=== PATIENT | female | born 1995 | race Caucasian/White ===

== ENCOUNTER 2025-04-04 13:26 | Outpatient (OUT) | payer MEDICAID, SELFPAY ==
[2025-04-04 14:18] LABS: Basophils Percent Auto 0.4 % (0.2-2.0); Eosinophils Absolute Auto 0.1 10^3/uL (0.0-0.7); Eosinophils Percent Auto 2.5 % (0.9-7.0); Hematocrit 34.2 % (36.0-48.0); Hemoglobin 11.1 g/dL (12.0-16.0); Immature Granulocytes Abs Auto 0.03 10^3/uL (0.00-0.03); Immature Granulocytes Pct Auto 0.6 % (0.0-0.5); Lymphocytes Absolute Auto 1.5 10^3/uL (1.2-3.8); Lymphocytes Percent Auto 27.6 % (20.5-60.0); Mean Corpuscular HGB Conc 32.5 g/dL (29.9-35.2); Mean Corpuscular Hemoglobin 27.6 pg (26.7-34.0); Mean Corpuscular Volume 85.1 fL (81.0-99.0); Mean Platelet Volume 11.1 fL (9.5-13.5); Monocytes Absolute Auto 0.3 10^3/uL (0.3-0.8); Monocytes Percent Auto 5.9 % (1.7-12.0); Neutrophils Absolute Auto 3.3 10^3/uL (1.4-6.5); Platelet Count 186 10^3/uL (150-450); Red Blood Count 4.02 10^6/uL (4.20-5.40); Red Cell Distribution Width 15.5 % (11.0-15.0); White Blood Count 5.3 10^3/uL (4.0-11.0)
[2025-04-04 14:33] LABS: Estimated Average Glucose 105 mg/dL; Glycohemoglobin A1C 5.3 % (4.5-6.2)
[2025-04-04 15:00] LABS: Amphetamine Screen Urine NEGATIVE (NEGATIVE); Barbiturates Screen Urine NEGATIVE (NEGATIVE); Benzodiazepines Screen Urine NEGATIVE (NEGATIVE); Buprenorphine Screen Urine NEGATIVE (NEGATIVE); Cannabinoid Screen Urine NEGATIVE (NEGATIVE); Cocaine Screen Urine NEGATIVE (NEGATIVE); Methadone Screen Urine NEGATIVE (NEGATIVE); Methamphetamines Screen Urine NEGATIVE (NEGATIVE); Opiate Screen Urine NEGATIVE (NEGATIVE); Oxycodone Screen Urine NEGATIVE (NEGATIVE); Phencyclidine Screen Urine NEGATIVE (NEGATIVE); Tricyclic Antidepressant Urine NEGATIVE (NEGATIVE)
[2025-04-05 05:07] LABS: HIV Ab/p24 Ag Screen Non Reactive (Non Reactive)
[2025-04-05 06:07] LABS: HBsAg Screen Negative (Negative); HCV Ab Non Reactive (Non Reactive)
[2025-04-05 08:09] LABS: Rubella Antibodies, IgG <0.90 index (Immune >0.99)
[2025-04-05 12:10] LABS: Rapid Plasma Reagin, Quant Non Reactive titer (NonRea<1:1)
== END 2025-04-04 13:27 | disposition home or self-care (01) ==
LOC: LAB 13:34
PROVIDERS: PCP Nurse Practitioner Family; Visit Provider Obstetrics & Gynecology
DX: Z34.01 Encounter for supervision of normal first pregnancy, first trimester (principal); N92.6 Irregular menstruation, unspecified
CPT/HCPCS: 36415; 80307; 83036; 85025; 86592; 86762; 86803; 86850; 86900; 86901; 87086; 87340; 87389

== ENCOUNTER 2025-04-11 19:12 | Outpatient (REF) | payer MEDICAID, SELFPAY ==
[2025-04-14 12:09] LABS: Age Gdln ACOG Testing Note (.); IGP, rfx Aptima HPV ASCU Note (.)
== END 2025-04-11 19:13 | disposition home or self-care (01) ==
LOC: LAB 19:12
PROVIDERS: PCP Nurse Practitioner Family; Visit Provider Obstetrics & Gynecology
DX: Z34.92 Encounter for supervision of normal pregnancy, unspecified, second trimester (principal); Z3A.16 16 weeks gestation of pregnancy
CPT/HCPCS: 88175

== ENCOUNTER 2025-05-09 14:46 | Outpatient (OUT) | payer MEDICAID, SELFPAY ==
[2025-05-11 01:07] LABS: AFP Value 85.8 ng/mL (.); Gest. Age on Collection Date 20.3 weeks (.); Gestat. Age Based On Ultrasound (.); Insulin Dep Diabetes No (.); Maternal Age At EDD 29.2 yr (.); OSBR Risk 1 IN 6110 (.); Results Report (.)
== END 2025-05-09 14:47 | disposition home or self-care (01) ==
LOC: LAB 14:48
PROVIDERS: PCP Nurse Practitioner Family; Visit Provider Obstetrics & Gynecology
DX: Z34.92 Encounter for supervision of normal pregnancy, unspecified, second trimester (principal); Z3A.16 16 weeks gestation of pregnancy
CPT/HCPCS: 36415; 82105

== ENCOUNTER 2025-05-19 15:17 | Observation (INO) | payer MEDICAID, SELFPAY ==
[2025-05-19 15:42] VITALS: BP 101/58; PULSE 75
[2025-05-19 16:12] LABS: Amnisure NEGATIVE (NEGATIVE); Internal Control Within Normal Limits
--- NOTE | 2025-05-19 16:23 | PC.NURSE ---
1517- Pt arrives to [facility] at this time with support person. Pt complaining of possible SROM prior to arriving to [facility]. Pt states she felt fluid trickle down her legs and examined the fluid. Pt states fluid smelled like hospital and was clear in consistency. Pt denies urine odor or color. Pt history reviewed at this time. Pt voices having placenta acreta and resolves placenta previa. Pt scheduled to see MFM. Pt had recent intercourse within the last 2 days. Pt denies UTI s/s. Pt reports movement. Pt denies cxt's but states she has cramping here and there. Pt denies vaginal bleeding. Pt given gown and urine specimen cup for sample. Urine obtained; clear, pale yellow. 1544- Amnisure obtained at this time. NO cervical exam performed. FHR tones via doppler 140-150bpm with active movement noted. Pt given PO fluids at this time. n
[2025-05-19 16:50] LABS: Bilirubin Urine NEGATIVE (NEGATIVE); Blood Urine NEGATIVE (NEGATIVE); Clarity Urine CLEAR (CLEAR); Color Urine LT. YELLOW (YELLOW); Glucose Urine UA NEGATIVE (NEGATIVE); Ketones Urine NEGATIVE (NEGATIVE); Leukocyte Esterase Urine MODERATE (NEGATIVE); Nitrite Urine NEGATIVE (NEGATIVE); Protein Urine NEGATIVE (NEG/TRACE); Specific Gravity Urine 1.015 (1.005-1.025); Urobilinogen Urine 0.2 EU/dL (0.2-1.0); pH Urine 7.5 (5.0-9.0)
[2025-05-19 16:55] LABS: Urine Microscopic Indicated YES
[2025-05-19 17:03] LABS: Bacteria Urine SMALL #/HPF (NONE SEEN); Cast Seen? NONE SEEN #/LPF (NONE SEEN); Crystals Seen? None Seen #/HPF (None Seen); Mucus Urine TRACE (NONE SEEN); RBC Urine 0-2 #/HPF (0-2); Squamous Epithelial Cell Urine FEW #/LPF (NONE/RARE)
[2025-05-19 17:04] LABS: Urine Culture Indicated YES-LC
--- NOTE | 2025-05-19 17:40 | PC.NURSE ---
1710- No fluid noted on pt pad. Allergies verified. Pharmacy verified. FHR doppler 140-150 bpm with active movement. 1730- Pt updated on plan of care. Discharge instructions at this time. Pt verbalizes understanding and comfortable going home. No fluid noted.
== END 2025-05-19 17:35 | disposition home or self-care (01) ==
LOC: FBC 15:19
PROVIDERS: Admitting Provider Family Medicine Addiction Medicine; PCP Nurse Practitioner Family; Visit Provider Family Medicine Addiction Medicine
DX: Z03.71 Encounter for suspected problem with amniotic cavity and membrane ruled out (principal)
CPT/HCPCS: 59025; 81001; 84112; 87086; G0378; G0379

== ENCOUNTER 2025-08-03 11:30 | Outpatient (RCR) | payer MEDICAID, SELFPAY ==
--- OUTSIDE RECORDS SUMMARY | 2025-02-01 05:30 | XMS_ITS ---
Author Organization [facility] vices Address [address] [place] [phone] Care Team Providers Care Truck Caterer Name Role Phone Douglas Elizabeth Primary Care Provider Bev Cantu Unavailable [phone] Luke Rod Unavailable [phone] REASON FOR VISIT Periodic Exam Social History Sex Assigned At : Social History Observation Description Sex Assigned At Female Encounters Encounter Location Date Provider Diagnosis Dental Main [address] [place], [place] [phone] 02/01/2025 Luke Rod Plan Of Treatment No Information Progress Notes * Kathie PHAM SDOB:1994 (30 yo F)Acc No.[id number]:02/01/2025 Patient: Kathie ZAMORA Provider: Rach Rod DDS :1995 A ge:29 Y S ex:Female Date:02/01/2025 Address:[address] [place] [address], [address] [facility]-[id number] Pcp:Douglas Elizabeth Subjective: * Chief Complaints: * 1 . Periodic Exam. * Medical History: Objective: * Vitals: Assessment: Plan: * Treatment: * Billing Information: * Visit Code: * Procedure Codes: * Electronic signature of Jacques Rod DDS on 08/03/2025 at 11:33 AM EDT Sign off status: Pending * Provider: Rach Rod DDS Date: 0 02/01/2025 Generated for Sherien graham/Kayla/eTransmitting on: 0 08/03/2025 11:33 AM EDT
--- OUTSIDE RECORDS SUMMARY | 2025-07-20 10:20 | XMS_ITS | Encounter Summary ---
Author Organization [facility] Address [address] [place] [address] Care Team Providers Care Cdl A Driver Name Role Phone Eleanor Andres MD Unavailable Reason for Visit * Reason Comments Routine Visit Encounter Details Date Type Department Care Team (Latest Contact Info) Description 07/20/2025 10:20 AM EDT Routine [facility] [place] [facility] [address] [place] [address] Peter Tellez DO [address] [place], [facility]11 Size of fetus inconsistent with dates in first trimester ([facility]HS-HCC) (Primary Dx); Third trimester ([facility]HS-HCC); 30 weeks gestation of ([facility]HS-HCC); Low platelet count Social History Tobacco Use Types Packs/Day Years Used Date Smoking Tobacco: Never Assessed Estimated Date of Delivery Comme nts Yes 09/24/2025 Based on Ultraso und Sex and Gender Information Value Date Recorded Sex Assigned at Not on file Legal Sex Female 11:40 AM EDT Gender Identity Not on file Sexual Orientation Not on file documented as of this encounter Last Filed Vital Signs Vital Sign Reading Time Taken Comments Blood Pressure 110/76 07/20/2025 10:52 AM EDT Pulse - - Temperature - - Respiratory Rate - - Oxygen Saturation - - Inhaled Oxygen Concentration - - Weight 62.4 kg (137 lb 8 oz) 07/20/2025 10:52 AM EDT Height - - Body Mass Index - - documented in this encounter Progress Notes * Obdulia Rivas LPN - 07/20/2025 10:20 AM EDT Reason for Appointment: Patient ID: Kathie Valentin is a 30 y.o. female who presents for Routine Visit Patient presents today for Return OB appointment. MEDICATIONS Current Outpatient Medications Medication Instructions acetaminophen (TYLENOL) 1,000 mg, Every 6 hours PRN Ferrous Sulfate (IRON PO) 1 tablet, Daily RT ondansetron ODT (ZOFRAN-ODT) 4 mg, Every 8 hours PRN 28-0.8 MG tablet 1 tablet, Every morning ALLERGIES Allergies Allergen Reactions Amoxicillin Itching 05/11/2024: tolerated ceftriaxone without allergic reaction PROBLEMS Active Ambulatory Problems Diagnosis Date Noted ([facility]) 07/04/2025 Third trimester ([facility]) 07/04/2025 Resolved Ambulatory Problems Diagnosis Date Noted No Resolved Ambulatory Problems Past Medical History: Diagnosis Date Miscarriage ([facility]) 01/2023 Pre-eclampsia in period ([facility]) 10/11/2022 Sepsis ([facility]) 05/09/2024 HISTORY PAST MEDICAL HISTORY SOCIAL HISTORY Past Medical History: Diagnosis Date Miscarriage ([facility]) 01/2023 @ 9 weels Pre-eclampsia in period ([facility]) 10/11/2022 Sepsis ([facility]) 05/09/2024 sepsis after deliverying 2 days later due to strep A Social History Tobacco Use Smoking status: Not on file Smokeless tobacco: Not on file Substance Use Topics Alcohol use: Not on file Drug use: Not on file FAMILY HISTORY No family history on file. SURGICAL HISTORY No past surgical history on file. REVIEW OF SYSTEMS Review of Systems: Review of Systems Constitutional: Negative. HENT: Negative. Eyes: Negative. Respiratory: Negative. Cardiovascular: Negative. Gastrointestinal: Negative. Genitourinary: Negative. Musculoskeletal: Negative. Skin: Negative. Neurological: Negative. All other systems reviewed and are negative. Hematological: Negative. Endocrine: Negative. Allergic/Immunologic: Negative. OBJECTIVE Objective: Physical Exam Constitutional: Appearance: Normal appearance. She is well-developed. Cardiovascular: Rate and Rhythm: Normal rate and regular rhythm. Pulmonary: Effort: Pulmonary effort is normal. Breath sounds: Normal breath sounds. Abdominal: General: Bowel sounds are normal. There is no distension. Palpations: Abdomen is soft. Tenderness: There is no abdominal tenderness. There is no guarding or rebound. Musculoskeletal: General: No swelling. Normal range of motion. Right lower leg: No edema. Left lower leg: No edema. Neurological: Mental Status: She is alert and oriented to person, place, and time. Skin: General: Skin is warm and dry. Psychiatric: Mood and Affect: Mood normal. Behavior: Behavior normal. Vitals and nursing note reviewed. Exam conducted with a flatbed driver present. Vitals: There is no height or weight on file to calculate BMI. BP: 110/76 Patient's last menstrual period was 01/01/2025. ASSESSMENT & PLAN ICD-10-CM 1. Size of fetus inconsistent with dates in first trimester ([facility]) O26.841 US OB follow up transabdominal approach 2. Third trimester ([facility]) Z34.93 POCT urinalysis dipstick manually resulted 3. 30 weeks gestation of ([facility]) Z3A.30 4. Low platelet count D69.6 CBC and differential Patient presents today for a routine obstetrics appointment. Patient is currently 30w4d with a Estimated Date of Delivery: 09/24/25. Patient given CBC order to have obtained sometime prior tonext appointment. Patient given growth scan to have scheduled due to size inconsistent with dates. Patient to return to clinic in 2 weeks for routine OB care. Documented by Obdulia Rivas LPN on behalf of: Peter Tellez DO documented in this encounter Plan of Treatment Upcoming Encounters Date Type Department Care Team (Late st Contact Info) Description 08/16/2025 2:10 PM EDT Routine [facility] [address] [facility] [place] [place] [address] Peter Tellez DO [address] [place] [address] 08/31/2025 9:30 AM EDT Routine [facility] LUCIANO [address] [facility] [place] [place] [address] Brenda Traore, CONCRETE TILE MACHINE OPERATOR [address] [place] [address] 09/07/2025 9:50 AM EDT Routine [facility] [address] [place] [address] [place] [phone] Peter Tellez DO [address] [place], [place] [id number] 09/14/2025 10:30 AM EDT Routine [facility] [address] [place] [address] [place] [phone] Angela Horton, PA [address] [place], [place] [phone] 09/21/2025 9:30 AM EDT Routine [facility] [address] [place] [address] [place] [address] Angela Horton, PA [address] [place], [place] [id number] Scheduled Orders Name Type Priority Associated Diagnoses Orde r Schedule US OB follow up transabdominal approach Imaging Routine Size of fetus inconsistent with dates in first trimester ([facility]) Expected: 07/20/2025, Expires: 11/19/2025 CBC and differential Lab Routine Low platelet count 4 Occurrences starting 07/20/2025 until 07/20/2026 documented as of this encounter Procedures Procedure Name Priority Date/Time Associated Diagnosis Comments POCT URINALYSIS DIPSTICK Routine 07/20/2025 10:57 AM EDT Third trimester ([facility]) documented in this encounter Results * (ABNORMAL) POCT urinalysis dipstick manually resulted (07/20/2025 10:57 AM EDT) Color, UA Yellow Clarity, UA Clear Glucose, UA Negative Negative - 2000(110) ++++ mg/dL Bilirubin, UA Negative Negative - 4(70) +++ mg/dL Ketones, UA Negative Negative - 160(16) ++++ mg/dL Spec Grav, UA 1.020 1 - 1.03 Blood, UA Negative Negative - 50 Roland/mcL pH, UA 6.5 5 - 9 Protein, UA Trace Negative - 2000(20) ++++ mg/dL Urobilinogen, UA 0.2 0.2 - 12 mg/dL Leukocytes, UA Positive Negative - 500+++ Ethan/mcL Comment:3+ Nitrite, UA Negative Negative - Positive Urine 07/20/2025 10:5 7 AM EDT Peter Tellez DO POINT OF CARE TEST ENTER/EDIT OR DERABLES Final Result documented in this encounter Visit Diagnoses Diagnosis Size of fetus inconsistent with dates in first trimester ([facility]CC)- Primary Third trimester ([facility]-HCC) state, incidental 30 weeks gestation of ([facility]) Low platelet count documented in this encounter Care Teams Cdl A Driver Relationship Specialty Start Date End Date Eleanor Andres MD [address] [place] [address] PCP - [facility] [employer] 02/22/24 documented as of this encounter
--- OUTSIDE RECORDS SUMMARY | 2025-08-03 11:00 | XMS_ITS | Encounter Summary ---
Author Organization [facility] Address [address] [place] [address] Care Team Providers Care Vascular Manager Name Role Phone Eleanor Andres MD Unavailable Reason for Visit * Reason Comments Routine Visit Encounter Details Date Type Department Care Team (Late st Contact Info) Description 08/03/2025 11:00 AM EDT Routine [facility] OBFELICIA [address] [facility] [place] [address] Angela Horton PA [address] [facility] [address] [place], [facility] Third trimester ([facility]); 32 weeks gestation of ([facility]) Social History Tobacco Use Types Packs/Day Years [...] Sign Reading Time Taken Comments Blood Pressure 110/70 08/03/2025 11:05 AM EDT Pulse - - Temperature - - Respiratory Rate - - Oxygen Saturation - - Inhaled Oxygen Concentration - - Weight 62.8 kg (138 lb 8 oz) 08/03/2025 11:05 AM EDT Height - - Body Mass Index - - documented in this encounter Progress Notes * VINCENT Eduardo - 08/03/2025 11:00 AM EDT Reason for Appointment: Patient ID: [...] PROBLEMS Active Ambulatory Problems Diagnosis Date Noted ([facility]) 07/04/2025 Third trimester ([facility]) 07/04/2025 Resolved Ambulatory Problems Diagnosis Date Noted No Resolved Ambulatory Problems Past Medical History: Diagnosis Date Miscarriage ([facility]) 01/2023 Pre-eclampsia in period ([facility]) 10/11/2022 Sepsis ([facility]) 05/09/2024 HISTORY PAST MEDICAL HISTORY SOCIAL HISTORY Past Medical History: Diagnosis Date Miscarriage ([facility]) 01/2023 @ 9 weels Pre-eclampsia in period ([facility]) 10/11/2022 Sepsis ([facility]) 05/09/2024 sepsis after deliverying 2 days later [...] Exam Constitutional: Appearance: Normal appearance. She is normal weight. HENT: Head: Normocephalic. Cardiovascular: Rate and Rhythm: Normal rate. Pulses: Normal pulses. Pulmonary: Effort: Pulmonary effort is normal. Breath sounds: Normal breath sounds. Abdominal: Palpations: Abdomen is soft. Musculoskeletal: General: Normal range of motion. Neurological: General: No focal deficit present. Mental Status: She is alert and oriented to person, place, and time. Psychiatric: Mood and Affect: Mood normal. Behavior: Behavior normal. Thought Content: Thought content normal. Judgment: Judgment normal. Vitals and nursing note reviewed. Vitals: There is no height or weight on file to calculate BMI. BP: 110/70 Patient's last menstrual period was 01/01/2025. ASSESSMENT & PLAN ICD-10-CM 1. Third trimester ([facility]) Z34.93 POCT urinalysis dipstick manually resulted 2. 32 weeks gestation of ([facility]) Z3A.32 Return OB: Patient presents today for a routine obstetrics appointment. Patient is currently 32w4d . Patient states she is doing well but has complaints of being tired due to current . Patient has verbalizes frequent movement. labor precautions was discussed/given and patient was instructed to perform kick counts three times a day. Orders Placed This Encounter Procedures POCT urinalysis dipstick manually resulted Follow Up: Patient is to return to office in 2 week for routine OB appointment. Documented by VINCENT Eduardo on behalf of: VINCENT Eduardo documented in this encounter Plan of Treatment Upcoming Encounters Date Type Department Care Team (Late st Contact Info) Description 08/16/2025 2:10 PM EDT Routine [facility] [address] [place] [address] [place] [phone] Peter Tellez, DO [address] [facility] [place] [address] 08/31/2025 9:30 AM EDT Routine [facility] [address] [place] [address] [place] [phone] Brenda Traore, DOTTIE [address] [facility] [place] [address] 09/07/2025 9:50 AM EDT Routine [facility] [address] [facility] [place] [address] Peter Tellez, DO [address] [facility] [place] [address] 09/14/2025 10:30 AM EDT Routine [facility] [address] [facility] [place] [phone] Angela Horton PA [address] [facility] [place] [address] 09/21/2025 9:30 AM EDT Routine [facility] [address] [facility] [place] [address] Angela Horton PA [address] [facility] [address] [place], [place] [phone] documented as of this encounter Procedures Procedure Name Priority Date/Time Associated Diagnosis Comments POCT URINALYSIS DIPSTICK Routine 08/03/2025 11:11 AM EDT Third trimester ([facility]) documented in this encounter Results * (ABNORMAL) POCT urinalysis dipstick manually resulted (08/03/2025 11:11 AM EDT) Color, UA Yellow Clarity, UA Clear Glucose, UA Negative Negative - 2000(110) ++++ mg/dL Bilirubin, UA Negative Negative - 4(70) +++ mg/dL Ketones, UA Negative Negative - 160(16) ++++ mg/dL Spec Grav, UA 1.015 1 - 1.03 Blood, UA Negative Negative - 50 Roland/mcL pH, UA 7.0 5 - 9 Protein, UA Negative Negative - 2000(20) ++++ mg/dL Urobilinogen, UA 0.2 0.2 - 12 mg/dL Leukocytes, UA Positive Negative - 500+++ Ethan/mcL Comment:2+ Nitrite, UA Negative Negative - Positive Urine 08/03/2025 11:1 1 AM EDT Angela KAUR POINT OF CARE TEST ENTER/EDIT OR DERABLES Final Result documented in this encounter Visit Diagnoses Diagnosis Third trimester ([facility]) state, incidental 32 weeks gestation of ([facility]) documented in this encounter Care Teams Vascular Manager Relationship Specialty Start Date End Date Eleanor Andres MD [address] [phone] PCP - [facility] SORIA 02/22/24 documented as of this encounter
--- OUTSIDE RECORDS SUMMARY | 2025-08-03 11:33 | XMS_ITS | Encounter Summary ---
Author Organization [facility] tem Address [id number] [address] [place] [address] Care Team Providers Care Construction Equipment Operator Name Role Phone No Pcp, No Pcp Primary Care Provider Unavailabl e Encounter Details Date Type Department Care Team (Late st Contact Info) Description 04/16/2022 Orders Only [facility] - [facility] [address] [place] [id number] Lu Guzman, BILLING COLLECTIONS SPECIALIST-[facility] [address], [address] [address] Social History Tobacco Use Types Packs/Day Years Used Date Smoking Tobacco: Never Smokeless Tobacco: Never Alcohol Use Standard Drinks/Week Comments No 0 (1 standard drink = 0.6 oz pur e alcohol) Childcare Answer Date Recorded Childcare Unknown 04/22/2019 Employment Answer Date Recorded Employment Unknown 04/22/2019 Purpose - Life Answer Date Recorded Purpose and direction in life Unknown Comments Yes Sex and Gender Information Value Date Recorded Sex Assigned at Female 10/10/2022 10:30 AM EST Legal Sex Female 11:51 AM EDT Gender Identity Female 10/10/2022 10:30 AM EST Sexual Orientation Straight 10/10/2022 10 :30 AM EST COVID-19 Exposure Response Date Recorded In the last 10 days, have yo u been in contact with someone who was confirmed or suspected to have Coronavirus/COVID-19? No / Unsure 04/15/2022 2:51 PM EDT documented as of this encounter Plan of Treatment Upcoming Encounters Date Type Department Care Team (Late st Contact Info) Description 08/23/2025 1:30 PM EDT Infusion Maria Fernanda [facility] - Medical Oncology [address] [place] [phone] 08/30/2025 1:30 PM EDT Infusion Maria Fernanda Gomez [facility] - Medical Oncology [address] [place] [address], [place] [phone] 09/11/2025 1:30 PM EDT Office Visit Maria Fernanda Gomez [facility] - Medical Oncology [address] [place] [address], [place] [phone] Kaylan Rainey, BILLING COLLECTIONS SPECIALIST-DIESEL INSPECTOR [address] [place] [address], [address] [place] [phone] documented as of this encounter Visit Diagnoses Not on filedocumented in this encounter Additional Health Concerns Infection Onset Date Last Indicated Resolved Time COVID-19 Rule-Out 05/09/2024 05/09/2024 05/09/2024 2:38 AM EDT Enteric Rule-Out 05/09/2024 05/09/2024 05/09/2024 10:46 PM EDT COVID-19 Rule-Out 06/04/2024 06/04/2024 06/04/2024 3:42 PM EDT COVID-19 Rule-Out 07/11/2024 07/11/2024 07/11/2024 8:25 PM EDT documented as of this encounter Care Teams Construction Equipment Operator Relationship Specialty Start Date End Date No [place]cp, [place] [address] PCP - General Family Medicine 02/05/25 documented as of this encounter
--- OUTSIDE RECORDS SUMMARY | 2025-08-03 11:33 | XMS_ITS | Encounter Summary ---
Author Organization [employer] tem Address [id number] [address] [place] [address] Care Team Providers Care Case Operator Name Role Phone No Pcp, No Pcp Primary Care Provider Unavailabl e Encounter Details Date Type Department Care Team (Late Contact Info) Description 09/20/2021 Abstract Maria Fernanda Skylar Gomez [facility] - Medical Oncology [address] [place] [address] Mitul Vila MD [address] [place] [address] [address] [place] [address] Social History Tobacco Use Types Packs/Day Years Used Date Smoking Tobacco: Never Smokeless Tobacco: Never Alcohol Use Standard Drinks/Week Comments No 0 (1 standard drink = 0.6 oz pur e alcohol) Childcare Answer Date Recorded Childcare Unknown 04/22/2019 Employment Answer Date Recorded Employment Unknown 04/22/2019 Purpose - Life Answer Date Recorded Purpose and direction in life Unknown Comments No Sex and Gender Information Value Date Recorded Sex Assigned at Female 10/10/2022 10:30 AM EST Legal Sex Female 11:51 AM EDT Gender Identity Female 10/10/2022 10:30 AM EST Sexual Orientation Straight 10/10/2022 10 :30 AM EST COVID-19 Exposure Response Date Recorded In the last month, have you been in contact with someone who was confirmed or suspected to have Coronavirus / COVID-19? No / Unsure 09/12/2021 10:01 AM EDT documented as of this encounter Plan of Treatment Upcoming Encounters Date Type Department Care Team (Late Contact Info) Description 08/23/2025 1:30 PM EDT Infusion Maria Fernanda Cheng [facility] - Medical Oncology [facility] [place] [address] 08/30/2025 1:30 PM EDT Infusion Maria Fernanda Gomez [facility] - Medical Oncology [facility] [place] [address] 09/11/2025 1:30 PM EDT Office Visit Maria Fernanda Gomez [facility] - Medical Oncology [address] [place] [address], [place] [phone] Kaylan Rainey, DOG BOARDER-[employer] BRINE TE[employer] [address] [facility] [address], [address] [place] [address] documented as of this encounter Visit Diagnoses Not on filedocumented in this encounter Additional Health Concerns Infection Onset Date Last Indicated Resolved Time COVID-19 Rule-Out 05/09/2024 05/09/2024 05/09/2024 2:38 AM EDT Enteric Rule-Out 05/09/2024 05/09/2024 05/09/2024 10:46 PM EDT COVID-19 Rule-Out 06/04/2024 06/04/2024 06/04/2024 3:42 PM EDT COVID-19 Rule-Out 07/11/2024 07/11/2024 07/11/2024 8:25 PM EDT documented as of this encounter Care Teams Case Operator Relationship Specialty Start Date End Date [place], [place] [address] PCP - General Family Medicine 02/05/25 documented as of this encounter
--- OUTSIDE RECORDS SUMMARY | 2025-08-03 11:33 | XMS_ITS | Encounter Summary ---
Author Organization [employer] tem Address [id number] [address] [place] [address] Care Team Providers Care Collar Setter Name Role Phone No Pcp, No Pcp Primary Care Provider Unavailabl e Encounter Details Date Type Department Care Team (Late st Contact Info) Description 09/26/2021 Telephone [facility]ne[facility] [address] [place] [address] Cassidy Serrano MA Social History Tobacco Use Types Packs/Day Years [...] AM EDT documented as of this encounter Miscellaneous Notes * Telephone Encounter - Cassidy Serrano MA - 09/26/2021 3:01 PM EDT Patient called in regards to nexplanon implant in arm. Stated she started getting hives around incision site that were itchy. Patient advised she could take benadryl or trying the cream and to keep appt for tomorrow 09/27/2021. Patient ok's and will try benadryl. documented in this encounter Plan of Treatment Upcoming Encounters Date Type Department Care Team (Late st Contact Info) Description 08/23/2025 1:30 PM EDT Infusion Maria Fernanda Cheng [facility] - Medical Oncology [address] [place] [phone] 08/30/2025 1:30 PM EDT Infusion Maria Fernanda Gomez [facility] - Medical Oncology [address] [place] [phone] 09/11/2025 1:30 PM EDT Office Visit Maria Fernanda Cheng [facility] - Medical Oncology [address] [place] [phone] Kaylan Rainey, CONTINUING EDUCATION INSTRUCTOR-[address], [place] [address] documented as of this encounter Visit Diagnoses Not on filedocumented in this encounter Additional Health Concerns Infection Onset Date Last Indicated Resolved Time COVID-19 Rule-Out 05/09/2024 05/09/2024 05/09/2024 2:38 AM EDT Enteric Rule-Out 05/09/2024 05/09/2024 05/09/2024 10:46 PM EDT COVID-19 Rule-Out 06/04/2024 06/04/2024 06/04/2024 3:42 PM EDT COVID-19 Rule-Out 07/11/2024 07/11/2024 07/11/2024 8:25 PM EDT documented as of this encounter Care Teams Collar Setter Relationship Specialty Start Date End Date No Pcp, [place] [address] PCP - General Family Medicine 02/05/25 documented as of this encounter
--- OUTSIDE RECORDS SUMMARY | 2025-08-03 11:33 | XMS_ITS | Clinical Summary ---
Author Organization [facility] Address [address] [place] [address] Care Team Providers Care Foam Molder Name Role Phone Eleanor Andres MD Unavailable Allergies Active Allergy Reactions Criticality Noted Date Comments Amoxicillin Itching Medium 08/25/2022 05/11/2024: tolerated ceftriaxone without allergic reaction Medications Ferrous Sulfate (IRON PO) Take 1 tablet by mouth in the morning. 5 Active ondansetron ODT (Zofran-ODT) 4 MG disintegrating tablet Take 4 mg by mouth every 8 (eight) hours if needed 4 Active 28-0.8 MG tablet Take 1 tablet by mouth in the morning. 5 Active acetaminophen (Tylenol) 500 MG tablet Take 1,000 mg by mouth every 6 (six) hours if needed Active Active Problems Problem Noted Date Diagnosed Date ([facility]) 07/04/2025 Third trimester ([facility]) 07/04/2025 Estimated Date of Delivery Comme nts Yes 09/24/2025 Based on Ultraso und Encounters Date Type Department Care Team Description 08/03/2025 11:00 AM EDT Routine [facility] [address] [place] [address] Angela Horton PA Third trimester ([facility]); 32 weeks gestation of ([facility]) 08/03/2025 Bamboo flowsheet [facility] [address] [place] [address] Angela Horton PA 07/28/2025 Abstract [facility] [address] [place] [address] Osiris Urbina MA 07/20/2025 10:20 AM EDT Routine [facility] [address] [place] [address] Pranay Tellez, Size of fetus inconsistent with dates in first trimester ([facility]) (Primary Dx); Third trimester ([facility]); 30 weeks gestation of ([facility]); Low platelet count 07/20/2025 Bamboo flowsheet [facility] [address] [place] [address] Pranay Tellez, 07/14/2025 Abstract [facility] [address] [place] [address] Angela Horton PA 07/13/2025 External Result Encounter [facility] External Department Unsolicited Angela Horton PA 07/04/2025 10:50 AM EDT Routine [facility] [address] [place] [address] Pranay Tellez, , unspecified gestational age ([facility]); Third trimester ([facility]) 07/04/2025 Bamboo flowsheet [facility] [address] [place] [address] Pranay Tellez, 06/22/2025 Abstract [facility] [address] [place] [address] Pranay Tellez, 2025 External Result Encounter [facility] [address] [place] [address] Pranay Tellez, 06/06/2025 2:30 PM EDT Routine [facility] [place] [address] Angela Horton PA 24 weeks gestation of ([facility]); Second trimester ([facility]); Diabetes mellitus screening 06/06/2025 Bamboo flowsheet [facility] LUCIAN[facility] [address] [place], [place] [address] [address] Angela Horton PA 05/09/2025 2:10 PM EDT Routine [facility] [place] [address] Pranay Tellez DO Second trimester ([facility]); 20 weeks gestation of ([facility]) 05/09/2025 1:00 PM EDT Ancillary Procedure ESTHER LUCIANO [address] [place] [address] [place] [address] Screening, , for anatomic survey ([facility]); Second trimester ([facility]) 05/09/2025 Clinisync Result Encounter [facility] External Department Unsolicited Pranay Tellez DO from Last 3 Months Social History Tobacco Use Types Packs/Day Years Used Date Smoking Tobacco: Never Assessed Estimated Date of Delivery Comme nts Yes 09/24/2025 Based on Ultraso und Sex and Gender Information Value Date Recorded Sex Assigned at Not on file Legal Sex Female 11:40 AM EDT Gender Identity Not on file Sexual Orientation Not on file Last Filed Vital Signs Vital Sign Reading Time Taken Comments Blood Pressure 110/70 08/03/2025 11:05 AM EDT Pulse - - Temperature - - Respiratory Rate - - Oxygen Saturation - - Inhaled Oxygen Concentration - - Weight 62.8 kg (138 lb 8 oz) 08/03/2025 11:05 AM EDT Height - - Body Mass Index - - Plan of Treatment Upcoming Encounters Date Type Department Care Team (Late st Contact Info) Description 08/16/2025 2:10 PM EDT Routine [facility] [address] [place], [place] [address] [address] Pranay Tellez DO [address] [place] [address] [place] [address] 08/31/2025 9:30 AM EDT Routine [facility] [address] [place] [address] [place] [phone] Brenda Traore, DOTTIE [address] [place] [phone] 09/07/2025 9:50 AM EDT Routine [facility] [address] [place] [address] [place] [address] Pranay Tellez DO [address] [place], [place] [phone] 09/14/2025 10:30 AM EDT Routine [facility] OBFEL[facility] [address] [place] [address] [place] [phone] Angela Horton, PA [address] [place] [address] 09/21/2025 9:30 AM EDT Routine [facility] [address] [place] [address] [place] [phone] Angela Horton, PA [address] [place] [address] Health Maintenance Due Date Last Done Comments Influenza Vaccine (#1) 2025 Procedures Procedure Name Priority Date/Time Associated Diagnosis Comments POCT URINALYSIS DIPSTICK Routine 08/03/2025 11:11 AM EDT Third trimester ([facility]) POCT URINALYSIS DIPSTICK Routine 07/20/2025 10:57 AM EDT Third trimester ([facility]) GLU 1 H POST 50G LOAD ([facility]) Routine 07/13/2025 2:30 PM EDT POCT URINALYSIS DIPSTICK Routine 07/04/2025 11:44 AM EDT , unspecified gestational age ([facility]) Third trimester ([facility]) US OB 14+ WEEKS ANATOMY SCAN 06/22/2025 10:27 AM EDT POCT URINALYSIS DIPSTICK Routine 06/06/2025 2:57 PM EDT 24 weeks gestation of ([facility]) Second trimester ([facility]) AFP, SERUM, OPEN SPINA BIFIDA Routine 05/09/2025 3:00 PM EDT POCT URINALYSIS DIPSTICK Routine 05/09/2025 2:24 PM EDT Second trimester ([facility]) US OB 14+ WEEKS ANATOMY SCAN Routine 05/09/2025 2:10 PM EDT Screening, , for anatomic survey ([facility]) Second trimester ([facility]) from Last 3 Months Results * (ABNORMAL) POCT urinalysis dipstick manually resulted (08/03/2025 11:11 AM EDT) Only the most recent of5 resultswithin the time period is included. Color, UA Yellow Clarity, UA Clear Glucose, UA Negative Negative - 1999(110) ++++ mg/dL Bilirubin, UA Negative Negative - 4(70) +++ mg/dL Ketones, UA Negative Negative - 160(16) ++++ mg/dL Spec Grav, UA 1.015 1 - 1.03 Blood, UA Negative Negative - 50 Roland/mcL pH, UA 7.0 5 - 9 Protein, UA Negative Negative - 1999(20) ++++ mg/dL Urobilinogen, UA 0.2 0.2 - 12 mg/dL Leukocytes, UA Positive Negative - 500+++ Ethan/mcL Comment:2+ Nitrite, UA Negative Negative - Positive Urine 08/03/2025 11:1 1 AM EDT us Angela KAUR POINT OF CARE TEST ENTER/EDIT OR DERABLES Final Result * GLU 1 H POST 50G LOAD ([facility]) (07/13/2025 2:30 PM EDT) GLU 1 H POST 50G LOAD 102 65 - 139 mg/dL [facility] Comment: PERFORMED AT [facility] [address],[place] [address] 07/13/2025 2:30 PM EDT 07/13/2025 5:29 PM EDT us Angela KAUR LAB BLOOD ORDERABLES Final Resul t [facility] * US OB 14+ weeks anatomy scan (06/22/2025 10:27 AM EDT) Only the most recent of2 resultswithin the time period is included. Anatomical Region Laterality Modality Body Ultrasound 06/22/2025 10:2 7 AM EDT Narrative 2025 3:04 PM EDT THIS EXAM WAS PERFORMED AT [facility] NAME: VERO PIERCE : 1995 SEX: F Accession Number: [id number] ORDERING PHYSICIAN: PRANAY TELLEZ REFERRING PHYSICIAN: PRANAY TELLEZ Coding ----- --------- Procedures 80755: Ultrasound, uterus, real time with image documentation, and maternal evaluation plus detailed anatomic examination, transabdominal approach;single or first gestation Indication ----- --------- Screening for Anatomic Survey, Supervision of high risk -(short interval between pregnancies), Insufficient care, Grand multiparity History ----- --------- OB History 7. Para 5 [id number] Maternal Assessment ----- --------- Physical Exam Height 178 cm, 5 ft 10 in. Weight 58 kg, 127 lb. Initial weight 52 kg, 115 lb. BMI 18.22 kg/m???. Initial BMI 16.50 kg/m???. Weight gain 5 kg, 12 lb Method ----- --------- Transabdominal ultrasound examination. View: Suboptimal view: restricted by patient discomfort and position ----- --------- Beavers . Number of fetuses: 1 Dating ----- --------- LMP on: 01/01/2025 GA by LMP 24 w + 3 d GIRMA by LMP: 10/08/2025 Previous Ultrasound on: 03/09/2025 Type of prior assessment: CRL U/S measurement at prior assessment date 47.0 mm GA by previous U/S 26 w + 3 d GIRMA by previous Ultrasound: 09/24/2025 Ultrasound examination on: 2025 GA by U/S based upon: AC, BPD, Femur, HC GA by U/S 26 w + 2 d GIRMA by U/S: 09/25/2025 Assigned: based on ultrasound (CRL), selected on 2025 Assigned GA 26 w + 3 d Assigned GIRMA: 09/24/2025 General Evaluation ----- --------- Cardiac activity Present. FHR 131 bpm. Presentation: cephalic Placenta: Placental site: posterior, away from cervical os Umbilical cord: Cord vessels: 3 vessel cord. Insertion site: normal insertion Amniotic fluid: Amount of AF: normal amount. MVP 6.0 cm Biometry ----- --------- Standard BPD 64.3 mm 26w 0d 25% Hadlock OFD 85.4 mm 27w 4d 83% Narayan HC 240.0 mm 26w 0d 15% Hadlock Cerebellum tr 31.3 mm 26w 6d 74% Hill AC 237.7 mm 28w 1d 87% Hadlock Femur 45.8 mm 25w 1d 8% Hadlock Humerus 43.9 mm 26w 1d 35% Narayan HC / AC 1.01 EFW 979 g 52% Hadlock EFW (lb) 2 lb EFW (oz) 3 oz EFW by: Hadlock ([id number]) Extended Tibia 40.0 mm 25w 2d 15% Narayan Electronic Prepress Technician 7.5 mm CM 2.2 mm <1% Nicolaides Head / Face / Neck Cephalic index 0.75 16% Nicolaides Nasal bone: present Extremities / Bony Struc FL / BPD 0.71 FL / HC 0.19 FL / AC 0.19 Other Structures FHR 131 bpm Anatomy ----- --------- The following structures appear normal: Head/Neck: Cranium. Lateral ventricles. Choroid plexus. Midline falx. Cavum septi pellucidi. Cerebellum. Cisterna magna. Parenchyma. Vermis. Neck. Face: Lips. Profile. Nose. Nasal bone. Heart/Thorax: 4-chamber view. RVOT view. 3-vessel view. 2-ptlnwf-lgqrfci view. Situs. Aortic arch view. Bicaval view. Ductal arch view. Interventricular septum. Cardiac position. Cardiac axis. Cardiac size. Cardiac rhythm. Right lung. Left lung. Abdomen: Abdom. wall. Cord insertion. Stomach. Kidneys. Bladder. Small bowel. Large bowel. Right renal artery. Left renal artery. Genitals. Spine: Cervical spine. Thoracic spine. Lumbar spine. Extremities/Skeleton: Right upper arm. Right forearm. Right hand. Left upper arm. Left forearm. Left hand. Right upper leg. Right lower leg. Right foot. Left upper leg. Left lower leg. Left foot. The following structures could not be adequately visualized: Face Maxilla. Mandible. Orbits. Heart / Thorax LVOT view. Great vessels. Diaphragm. Spine Sacral spine. Maternal Structures ----- --------- Uterus Visualized Cervix Visualized Approach - Transabdominal Right Ovary Not visualized Left Ovary Not visualized Cul de Sac Visualized. No free fluid visualized Impression ----- --------- Single viable intrauterine consistent with 26w 3d with an GIRMA of 09/24/2025. Amniotic fluid MVP measures 6 cm. The placenta appears heterogeneous in the posterior aspect however the uteroplacental interface appears intact. There is no sonographic evidence of adherent placenta at this time. There are the appearance of multiple lakes. there is not significant hypervascularity seen Recommendations ----- --------- Please see [facility] documentation from today. There is no sonographic evidence of adherent placenta at this time. The patient is scheduled in four to six week(s) to complete anatomic survey and re-evaluation of placenta. Subsequent follow up or other follow up as clinically determined by primary OB provider unless otherwise specified by [facility]. Results forwarded to ordering provider so they can follow up with the patient as necessary. Procedure Note Radiology, Radiologist, MD - 06/22/2025 THIS EXAM WAS PERFORMED AT [facility] NAME: VERO PIERCE : 1995 SEX: F Accession Number: [id number] ORDERING PHYSICIAN: PRANAY TELLEZ REFERRING PHYSICIAN: PRANAY TELLEZ Coding ----- --------- Procedures [id number]: Ultrasound, uterus, real time with imagedocumentation, and maternal evaluation plus detailed anatomic examination, transabdominalapproach;single or first gestation Indication ----- --------- Screening for Anatomic Survey, Supervision of high risk - (shortinterval between pregnancies), Insufficient care, Grand multiparity History ----- --------- OB History 7. Para 5 [id number] Maternal Assessment ----- --------- Physical Exam Height 178 cm, 5 ft 10 in. Weight 58 kg, 127 lb. Initialweight 52 kg, 115 lb. BMI 18.22 kg/m???. Initial BMI 16.50 kg/m???. Weight gain 5 kg, 12 lb Method ----- --------- Transabdominal ultrasound examination. View: Suboptimal view: restrictedby patient discomfort and position ----- --------- Beavers . Number of fetuses: 1 Dating ----- --------- LMP on: 01/01/2025 GA by LMP 24 w + 3 d GIRMA by LMP: 10/08/2025 Previous Ultrasound on: 03/09/2025 Type of prior assessment: CRL U/S measurement at prior assessment date 47.0 mm GA by previous U/S 26 w + 3 d GIRMA by previous Ultrasound: 09/24/2025 Ultrasound examination on: 2025 GA by U/S based upon: AC, BPD, Femur, HC GA by U/S 26 w + 2 d GIRMA by U/S: 09/25/2025 Assigned: based on ultrasound (CRL), selected on 2025 Assigned GA 26 w + 3 d Assigned GIRMA: 09/24/2025 General Evaluation ----- --------- Cardiac activity Present. FHR 131 bpm. Presentation: cephalic Placenta: Placental site: posterior, away from cervical os Umbilical cord: Cord vessels: 3 vessel cord. Insertion site: normalinsertion Amniotic fluid: Amount of AF: normal amount. MVP 6.0 cm Biometry ----- --------- Standard BPD 64.3 mm 26w 0d 25% Hadlock OFD 85.4 mm 27w 4d 83% Narayan HC 240.0 mm 26w 0d 15% Hadlock Cerebellum tr 31.3 mm 26w 6d 74% Hill AC 237.7 mm 28w 1d 87% Hadlock Femur 45.8 mm 25w 1d 8% Hadlock Humerus 43.9 mm 26w 1d 35% Narayan HC / AC 1.01 EFW 979 g 52% Hadlock EFW (lb) 2 lb EFW (oz) 3 oz EFW by: Hadlock ([id number]) Extended Tibia 40.0 mm 25w 2d 15% Narayan Electronic Prepress Technician 7.5 mm CM 2.2 mm <1% Nicolaides Head / Face / Neck Cephalic index 0.75 16% Nicolaides Nasal bone: present Extremities / Bony Struc FL / BPD 0.71 FL / HC 0.19 FL / AC 0.19 Other Structures FHR 131 bpm Anatomy ----- --------- The following structures appear normal: Head/Neck: Cranium. Lateral ventricles. Choroid plexus. Midline falx.Cavum septi pellucidi. Cerebellum. Cisterna magna. Parenchyma. Vermis. Neck. Face: Lips. Profile. Nose. Nasal bone. Heart/Thorax: 4-chamber view. RVOT view. 3-vessel view. 0-hksucb-sgfrptstmhd. Situs. Aortic arch view. Bicaval view. Ductal arch view. Interventricular septum. Cardiac position.Cardiac axis. Cardiac size. Cardiac rhythm. Right lung. Left lung. Abdomen: Abdom. wall. Cord insertion. Stomach. Kidneys. Bladder. Smallbowel. Large bowel. Right renal artery. Left renal artery. Genitals. Spine: Cervical spine. Thoracic spine. Lumbar spine. Extremities/Skeleton: Right upper arm. Right forearm. Right hand. Leftupper arm. Left forearm. Left hand. Right upper leg. Right lower leg. Right foot. Left upper leg. Left lower leg. Leftfoot. The following structures could not be adequately visualized: Face Maxilla. Mandible. Orbits. Heart / Thorax LVOT view. Great vessels. Diaphragm. Spine Sacral spine. Maternal Structures ----- --------- Uterus Visualized Cervix Visualized Approach - Transabdominal Right Ovary Not visualized Left Ovary Not visualized Cul de Sac Visualized. No free fluid visualized Impression ----- --------- Single viable intrauterine consistent with 26w 3d with an GIRMA of09/24/2025. Amniotic fluid MVP measures 6 cm. The placenta appears heterogeneous in the posterior aspect however theuteroplacental interface appears intact. There is no sonographic evidence of adherent placenta at this time. There are theappearance of multiple lakes. there is not significant hypervascularity seen Recommendations ----- --------- Please see [facility] documentation from today. There is no sonographic evidenceof adherent placenta at this time. The patient is scheduled in four to six week(s) to complete anatomicsurvey and re-evaluation of placenta. Subsequent follow up or other follow up as clinically determined byprimary OB provider unless otherwise specified by [facility]. Results forwarded to ordering provider so they can follow up with thepatient as necessary. us Pranay Rosalinda DO IMG OB US PROCEDURES Edited Resu lt - Final * AFP, SERUM, OPEN SPINA BIFIDA (05/09/2025 3:00 PM EDT) RESULTS Report . [facility] TEST RESULTS: *Screen Negative* . [facility] GEST. AGE ON COLLECTION DATE 20.3 . weeks [facility] GESTAT. AGE BASED ON Ultrasound . [facility] Comment: 16.3 on 04/11/2025 Recalculations are not recommended when gestational dating by LMP and ultrasound are within 10 days. [age]MA [age] [facility] RACE . [facility] WEIGHT 115 . lbs [facility] INSULIN DEP DIABETES No . [facility] MULTIPLE GESTATION No . [facility] AFP VALUE 85.8 . ng/mL [facility] AFP MOM 1.22 . [facility] OSBR RISK 1 IN 6110 . [facility] INTERPRETATION Comment . [facility] Comment: Interpretation: Screen Negative This result is screen negative for OSB. The AFP MoM calculated is based on the gestational age provided. MS-AFP can identify up to 80% of open neural tube defects. Closed neural tube defects and some open defects may not be detected by this test. This test does not screen for Down Syndrome or Trisomy 18. If screening for Down Syndrome or Trisomy 18 is desired, contact [facility] to discuss available options. The [employer] recommends amniocentesis be offered to women age 35 and older. COMMENT: Comment . [facility] Comment: Мария Stone, Ph.D., [facility] Director References: Available Upon Request. Multiples Of Median Cutoffs For AFP Elevations Beavers 2.5 Black 2.8 IDD 2.0 Twins 4.5 Abbreviation Definitions IDD - Insulin Dep Diabetes OSBR - Open Spina Bifida Risk For further inquiries contact [facility] at [phone]. This test was developed and its performance characteristics determined by [facility]. It has not been cleared or approved by the Food and Drug Administration. Performed at: [facility] [address] [place], [place] [id number] [place] Counter: Mihaela Holly [facility], Phone: [phone] 05/09/2025 3:00 PM EDT 05/09/2025 3:04 PM EDT Narrative [facility] - 05/11/2025 1:07 AM EDT N N ULTRASOUND [id number] 2 16 N 1 Y 115 N N N N White/ us Pranay Tellez DO LAB BLOOD ORDERABLES Final Resul t [facility] from Last 3 Months Insurance [employer] [employer] [place] Care Teams Foam Molder Relationship Specialty Start Date End Date Eleanor Andres MD [address] [facility] [address] [place] [address] PCP - [facility] STONE LAYOUT MARKER 02/22/24
--- OUTSIDE RECORDS SUMMARY | 2025-08-03 11:33 | XMS_ITS | Encounter Summary ---
Author Organization [facility] Address [id number] [address] [place] [address] Care Team Providers Care Slicing Machine Operator Name Role Phone No Pcp, No Pcp Primary Care Provider Unavailabl e Encounter Details Date Type Department Care Team (Late st Contact Info) Description 04/10/2022 Abstract [facility]ne[facility] [address] [place] [address] Gloria Hubbard LPN Social History Tobacco Use Types Packs/Day Years [...] suspected to have Coronavirus/COVID-19? No / Unsure 04/07/2022 12:58 PM EDT documented as of this encounter Plan of Treatment Upcoming Encounters Date Type Department Care Team (Late st Contact Info) Description 08/23/2025 1:30 PM EDT [facility] - [facility] On[facility] [address] [place] [address] 08/30/2025 1:30 PM EDT In[facility] - [facility] Oncology [address] [place] [address] 09/11/2025 1:30 PM EDT Office Visit [facility] - Medical Oncology [facility] [place] [address] Kaylan Rainey, RIPSHEAR OPERATOR-BUSINESS PROCESS LEAD [address] [place] [address], [address] [place] [address] documented as of this encounter Visit Diagnoses Not on filedocumented in this encounter Additional Health Concerns Infection Onset Date Last Indicated Resolved Time COVID-19 Rule-Out 05/09/2024 05/09/2024 05/09/2024 2:38 AM EDT Enteric Rule-Out 05/09/2024 05/09/2024 05/09/2024 10:46 PM EDT COVID-19 Rule-Out 06/04/2024 06/04/2024 06/04/2024 3:42 PM EDT COVID-19 Rule-Out 07/11/2024 07/11/2024 07/11/2024 8:25 PM EDT documented as of this encounter Care Teams Slicing Machine Operator Relationship Specialty Start Date End Date No [place]cp, [place] [address] PCP - General Family Medicine 02/05/25 documented as of this encounter
--- OUTSIDE RECORDS SUMMARY | 2025-08-03 11:34 | XMS_ITS | Encounter Summary ---
Author Organization [facility] Address [address] [place] [address] Care Team Providers Care Turner In Name Role Phone Eleanor Andres MD Unavailable Encounter Details Date Type Department Care Team (Late st Contact Info) Description 07/28/2025 Abstract ESTHER LUCIANO [address] [facility] [facility] [address] Osiris Urbina MA Social History Tobacco Use Types Packs/Day Years Used Date Smoking Tobacco: Never Assessed Estimated Date of Delivery Comme nts Yes 09/24/2025 Based on Ultraso und Sex and Gender Information Value Date Recorded Sex Assigned at Not on file Legal Sex Female 11:40 AM EDT Gender Identity Not on file Sexual Orientation Not on file documented as of this encounter Plan of Treatment Upcoming Encounters Date Type Department Care Team (Late st Contact Info) Description 08/16/2025 2:10 PM EDT Routine ESTHER LUCIANO [address] [place] [address] [place] [address] Peter Tellez, [address] [place] [address] 08/31/2025 9:30 AM EDT Routine ESTHER LUCIANO [address] [facility] [place] [address] Brenda Traore, FORGE PRESS OPERATOR [address] [facility] [address] [place] [address] 09/07/2025 9:50 AM EDT Routine [facility] [address] [place] [address] [place] [phone] Peter Tellez DO [address] [facility] [place] [address] 09/14/2025 10:30 AM EDT Routine [facility] [address] [place] [address] [place] [phone] Angela Horton, PA [address] [facility] [address] [place], [place] [phone] 09/21/2025 9:30 AM EDT Routine [facility] [address] [place] [address] [place] [address] Angela Horton, PA [address] [facility] [place] [address] documented as of this encounter Visit Diagnoses Not on filedocumented in this encounter Care Teams Turner In Relationship Specialty Start Date End Date Eleanor Andres MD [address] [facility] [address] [place] [address] PCP - [facility] Garett VIRTUAL ASSISTANT FOR ADVERTISERS 02/22/24 documented as of this encounter
--- OUTSIDE RECORDS SUMMARY | 2025-08-03 11:34 | XMS_ITS | Encounter Summary ---
Author Organization [employer] Address [id number] [address] [place] [address] Care Team Providers Care Boat Captain Name Role Phone No Pcp, No Pcp Primary Care Provider Unavailabl e Encounter Details Date Type Department Care Team (Late st Contact Info) Description 06/02/2023 Orders Only [facility] [address] [place] [phone] Mitul Vila MD [address] [place] [address] [address] [place] [address] Social History Tobacco Use Types Packs/Day Years Used Date Smoking Tobacco: Never Smokeless Tobacco: Never Alcohol Use Standard Drinks/Week Comments No 0 (1 standard drink = 0.6 oz pur e alcohol) Overall Financial Resource Strain (CARDIA) Answe r Date Recorded How hard is it for you to pa y for the very basics like food, housing, medical care, and heating? Not hard at all 04/30/2022 PHQ-2 Answer Date Recorded Total Score 0 04/30/2022 Seanor Depression Scale Answer Date Recorded Seanor Depression Scale Total 2 10/30/2022 The thought of harming myself has occurred to me . Never 10/30/2022 Childcare Answer Date Recorded Do problems getting child ca re make it difficult for you to work or study? No 04/30/2022 Employment Answer Date Recorded Employment Unknown 04/22/2019 Hunger Screening Answer Date Recorded Within the past 12 months we worried whether our food would run out before we got money to buy more. Never True 02/16/2023 Within the past 12 months th e food we bought just didn't last and we didn't have money to get more. Never True 02/16/2023 Purpose - Life Answer Date Recorded Purpose and direction in life Unknown Comments Yes Sex and Gender Information Value Date Recorded Sex Assigned at Female 10/10/2022 10:30 AM EST Legal Sex Female 11:51 AM EDT Gender Identity Female 10/10/2022 10:30 AM EST Sexual Orientation Straight 10/10/2022 10 :30 AM EST documented as of this encounter Plan of Treatment Upcoming Encounters Date Type Department Care Team (Late st Contact Info) Description 08/23/2025 1:30 PM EDT Infusion Maria Fernanda L [facility] - Medical Oncology [address] [place] [phone] 08/30/2025 1:30 PM EDT Infusion Maria Fernanda L [facility] - Medical Oncology [address] [place] [phone] 09/11/2025 1:30 PM EDT Office Visit Maria Fernanda L [facility] - Medical Oncology [address] [place] [phone] Kaylan Rainey, SURVEYOR ROD HELPER-[address], [place] [address] documented as of this encounter Visit Diagnoses Not on filedocumented in this encounter Additional Health Concerns Infection Onset Date Last Indicated Resolved Time COVID-19 Rule-Out 05/09/2024 05/09/2024 05/09/2024 2:38 AM EDT Enteric Rule-Out 05/09/2024 05/09/2024 05/09/2024 10:46 PM EDT COVID-19 Rule-Out 06/04/2024 06/04/2024 06/04/2024 3:42 PM EDT COVID-19 Rule-Out 07/11/2024 07/11/2024 07/11/2024 8:25 PM EDT Assessment Noted Time PHQ-9 Depression Total Score: 0 04/30/20 2:05 PM EDT documented as of this encounter Care Teams Boat Captain Relationship Specialty Start Date End Date No Pcp, [place] [address] PCP - General Family Medicine 02/05/25 documented as of this encounter
--- OUTSIDE RECORDS SUMMARY | 2025-08-03 11:34 | XMS_ITS | Encounter Summary ---
Author Organization [employer] Address [id number] [address] [place] [address] Care Team Providers Care Wheelchair Driver Name Role Phone No Pcp, No Pcp Primary Care Provider Unavailabl e Encounter Details Date Type Department Care Team (Late st Contact Info) Description 11/11/2024 Orders Only Maria Fernanda Cheng [facility] - Medical Oncology [address] [place] [address] Berna Higgins, KARLOS Iron deficiency anemia due to chronic blood loss (Primary Dx); Severe anemia; Anemia during ; Low platelet count (CMS-HCC); Fatigue, unspecified type Social History Tobacco Use Types Packs/Day Years Used Date Smoking Tobacco: Never Smokeless Tobacco: Never Alcohol Use Standard Drinks/Week Comments No 0 (1 standard drink = 0.6 oz pur e alcohol) [facility] Utilities Answer Date Recorded In the past 12 months has e electric, gas, oil, or water company threatened to shut off services in your home? No 07/11/2024 Overall Financial Resource Strain (CARDIA) Answe r Date Recorded How hard is it for you to pa y for the very basics like food, housing, medical care, and heating? Not hard at all 05/09/2024 PHQ-2 Answer Date Recorded Total Score 0 05/09/2024 PRAPARE - Transportation Answer Date Re corded In the past 12 months, has l ack of transportation kept you from medical appointments or from getting medications? No 06/23 In the past 12 months, has l ack of transportation kept you from meetings, work, or from getting things needed for daily living? No 07/11/2024 Knapp Depression Scale Answer Date Recorded Knapp Depression Scale Total 2 10/30/2022 The thought of harming myself has occurred to me . Never 10/30/2022 Housing Instability Answer Date Recorde d Are you worried or concerned that in the next two months you may not have stable housing that you own, rent or stay in as a part of a household? No 07/11/2024 Childcare Answer Date Recorded Do problems getting child ca re make it difficult for you to work or study? No 04/30/2022 Employment Answer Date Recorded Employment Unknown 04/22/2019 Hunger Screening Answer Date Recorded Within the past 12 months we worried whether our food would run out before we got money to buy more. Never True 09/19/2024 Within the past 12 months th e food we bought just didn't last and we didn't have money to get more. Never True 09/19/2024 Purpose - Life Answer Date Recorded Purpose and direction in life Unknown Comments Unknown Sex and Gender Information Value Date Recorded [...] 1:30 PM EDT [facility] [address] [place] [phone] 08/30/2025 1:30 PM EDT Infusion Maria Fernanda Skylar [facility] - Medical Oncology [address] [place] [phone] 09/11/2025 1:30 PM EDT Office Visit Maria Fernanda Skylar [facility] - Medical Oncology [address] [place] [phone] Kaylan Rainey, JORGE-RAG PRODUCTION WORKER [address] [place] [address], [address] [place] [address] documented as of this encounter Visit Diagnoses Diagnosis Iron deficiency anemia due to chronic blood loss- Primary Iron deficiency anemia secondary to blood loss (chronic) Severe anemia Anemia during Anemia, antepartum Low platelet count Fatigue, unspecified type documented in this encounter Additional Health Concerns Assessment Noted Time PHQ-9 Depression Total Score: 0 05/09/20 24 7:01 PM EDT documented as of this encounter Care Teams Wheelchair Driver Relationship Specialty Start Date End Date No Pcp, No Pcp ARNOL [place] [address] PCP - General Family Medicine 02/05/25 documented as of this encounter
--- OUTSIDE RECORDS SUMMARY | 2025-08-03 11:34 | XMS_ITS | Encounter Summary ---
Author Organization [facility] Address [address] [place] [address] Care Team Providers Care Cw Operator Name Role Phone Eleanor Andres MD Unavailable Encounter Details Date Type Department Care Team (Late Contact Info) Description 2025 External Result Encounter [facility] LUCIANO [address] [facility] [place] [address] Pranay Tellez DO [address] [facility] [address] [place], [id number] Social History Tobacco Use Types Packs/Day Years [...] Department Care Team (Late Contact Info) Description 08/16/2025 2:10 PM EDT Routine [facility] LUCIANO [address] [place] [address] Pranay Tellez DO [address] [place], [id number] 08/31/2025 9:30 AM EDT Routine NOMChi[facility] LUCIANO [address] [place] [address] Brenda Traore, HOSPICE CARE TRANSITIONS COORDINATOR [address] [facility] [place] [phone] 09/07/2025 9:50 AM EDT Routine [facility] [address] [place] [address] [place] [phone] Pranay Tellez DO [address] [facility] [place] [address] 09/14/2025 10:30 AM EDT Routine [facility] [address] [facility] [place] [phone] Angela Horton PA [address] [facility] [place] [address] 09/21/2025 9:30 AM EDT Routine [facility] [address] [facility] [place] [phone] Angela Horton PA [address] [facility] [place] [address] documented as of this encounter Procedures Procedure Name Priority Date/Time Associated Diagnosis Comments US OB 14+ WEEKS ANATOMY SCAN 06/22/2025 10:27 AM EDT documented in this encounter Results * US OB 14+ weeks anatomy scan (06/22/2025 10:27 AM EDT) Anatomical Region Laterality Modality Body Ultrasound 06/22/2025 10:2 7 AM EDT Narrative 2025 3:04 PM EDT THIS EXAM WAS PERFORMED AT [facility] NAME: VERO PIERCE : 1995 SEX: F Accession Number: [id number] ORDERING PHYSICIAN: PRANAY TELLEZ REFERRING PHYSICIAN: PRANAY TELLEZ Coding ----- --------- Procedures [id number]: Ultrasound, uterus, real time with image documentation, and maternal evaluation plus detailed anatomic examination, transabdominal approach;single or first gestation Indication ----- --------- Screening for Anatomic Survey, Supervision of high risk -(short interval between pregnancies), Insufficient care, Grand multiparity History ----- --------- OB History 7. Para 5 [id number] Maternal Assessment ----- --------- Physical Exam Height [...] EFW (oz) 3 oz EFW by: Hadlock (URP-LI-EU-FL) Extended Tibia 40.0 mm 25w 2d 15% Narayan Telehealth Nurse 7.5 mm CM 2.2 mm <1% Nicolaides [...] Heart/Thorax: 4-chamber view. RVOT view. 3-vessel view. 0-jhpoyv-lgzcrzo view. Situs. Aortic arch view. Bicaval view. [...] primary OB provider unless otherwise specified by [facility]. Results forwarded to ordering provider so they can follow up with the patient as necessary. Procedure Note Radiology, Radiologist, - 06/22/2025 THIS EXAM WAS PERFORMED AT [facility] NAME: VERO PIERCE : 1995 SEX: F Accession Number: [id number] ORDERING PHYSICIAN: PRANAY TELLEZ REFERRING PHYSICIAN: PRANAY TELLEZ Coding ----- --------- Procedures [id number]: Ultrasound, uterus, real time with imagedocumentation, and maternal evaluation plus detailed anatomic examination, transabdominalapproach;single or first gestation Indication ----- --------- Screening for Anatomic Survey, Supervision of high risk - (shortinterval between pregnancies), Insufficient care, Grand multiparity History ----- --------- OB History 7. Para 5 [id number] Maternal Assessment ----- --------- Physical Exam Height [...] EFW (oz) 3 oz EFW by: Hadlock (SOJ-LN-ND-FL) Extended Tibia 40.0 mm 25w 2d 15% Narayan Telehealth Nurse 7.5 mm CM 2.2 mm <1% Nicolaides [...] Heart/Thorax: 4-chamber view. RVOT view. 3-vessel view. 2-geelbc-eczwxywhbuh. Situs. Aortic arch view. Bicaval view. Ductal [...] byprimary OB provider unless otherwise specified by [facility]. Results forwarded to ordering provider so they can follow up with thepatient as necessary. us Pranay Tellez DO IMG OB US PROCEDURES Edited Resu lt - Final documented in this encounter Visit Diagnoses Not on filedocumented in this encounter Care Teams Cw Operator Relationship Specialty Start Date End Date Eleanor Andres MD [address] [place] [address] PCP - ESTHER Bajwa SCREW MACHINE OPERATOR 02/22/24 documented as of this encounter
--- OUTSIDE RECORDS SUMMARY | 2025-08-03 11:34 | XMS_ITS | Encounter Summary ---
Author Organization [employer] Address [id number] [address] [place] [address] Care Team Providers Care Telegraphic Typewriter Installer Name Role Phone No Pcp, No Pcp Primary Care Provider Unavailabl e Encounter Details Date Type Department Care Team (Late st Contact Info) Description 08/22/2022 Telephone [facility] [address] [place] [address] Ciara Jesus CMA Social History Tobacco Use Types Packs/Day Years [...] Answer Date Recorded Total Score 0 04/30/2022 Childcare Answer Date Recorded Do problems getting [...] have Coronavirus / COVID-19? No / Unsure 08/25/2022 1:04 PM EDT documented as of this encounter Miscellaneous Notes * Telephone Encounter - Ciara Jesus CMA - 08/22/2022 8:20 AM EDT Patient called in stating she went to ER for tooth pain, they started her on amoxicillin and she started taking it last night. She woke up with a sore throat and was wondering if this is a possible reaction to the medication? Please advise. * Telephone Encounter - AGUSTINA Mcpherson - 08/22/2022 8:20 AM EDT As long as she is not having any swelling of her tongue or difficulty breathing, it should not be areaction to the medication. It may be radiation from the tooth pain, or completely unrelated and just a sore throat. If it worsens she should see her PCP. * Telephone Encounter - Ciara Jesus CMA - 08/22/2022 8:20 AM EDT Patient notified documented in this encounter Plan of Treatment Upcoming Encounters Date Type Department Care Team (Late st Contact Info) Description 08/23/2025 1:30 PM EDT Infusion Maria Fernanda [facility] - Medical Oncology [address] [place] [phone] 08/30/2025 1:30 PM EDT Infusion Maria Fernanda Gomez [facility] - Medical Oncology [address] [place] [phone] 09/11/2025 1:30 PM EDT Office Visit Maria Fernanda Gomez [facility] - Medical Oncology [address] [place] [phone] Kaylan Rainey, AGUSTINA [address] [place] [address], [address] [place] [address] documented as of this encounter Visit Diagnoses [...] Time PHQ-9 Depression Total Score: 0 04/30/20 22 2:05 PM EDT documented as of this encounter Care Teams Telegraphic Typewriter Installer Relationship Specialty Start Date End Date No Pcp, [place] [address] PCP - General Family Medicine 02/05/25 documented as of this encounter
--- OUTSIDE RECORDS SUMMARY | 2025-08-03 11:34 | XMS_ITS | Encounter Summary ---
Author Organization [employer] Address [id number] [address] [place] [address] Care Team Providers Care Heel Sander Name Role Phone No Pcp, No Pcp Primary Care Provider Unavailabl e Encounter Details Date Type Department Care Team (Late st Contact Info) Description 12/02/2024 Orders Only Maria Fernanda Cheng [facility] - Medical Oncology [address] [place] [address] Mitul Vila MD [address] [place] [address] [place] [address] Social History Tobacco Use Types Packs/Day Years Used Date Smoking Tobacco: Never Smokeless Tobacco: Never Alcohol Use Standard Drinks/Week Comments No 0 (1 standard drink = 0.6 oz pur e alcohol) [facility] Utilities Answer Date Recorded In the past [...] things needed for daily living? No 07/11/2024 Manti Depression Scale Answer Date Recorded Manti Depression Scale Total 2 10/30/2022 The thought [...] got money to buy more. Never True 11/22/2024 Within the past 12 months th e food we bought just didn't last and we didn't have money to get more. Never True 11/22/2024 Purpose - Life Answer Date Recorded Purpose [...] 1:30 PM EDT Infusion Maria Fernanda L [facility] - Medical Oncology [address] [place] [phone] 08/30/2025 1:30 PM EDT Infusion Maria Fernanda Skylar [facility] - Medical Oncology [address] [place] [phone] 09/11/2025 1:30 PM EDT Office Visit Maria Fernanda Skylar [facility] - Medical Oncology [address] [place] [phone] Kaylan Rainey, MOLDER SHOULDER PAD-ICT SECURITY SPECIALIST [address] [place] [address], [address] [place] [address] documented as of this encounter Visit Diagnoses Not on filedocumented in this encounter Additional Health Concerns Assessment Noted Time PHQ-9 Depression Total Score: 0 05/09/20 24 7:01 PM EDT documented as of this encounter Care Teams Heel Sander Relationship Specialty Start Date End Date No Pcp, No Pcp ARNOL [place] [address] PCP - General Family Medicine 02/05/25 documented as of this encounter
--- OUTSIDE RECORDS SUMMARY | 2025-08-03 11:34 | XMS_ITS | Encounter Summary ---
Author Organization [facility] Address [address] [place] [address] [place] [address] Care Team Providers Care Machine Stapler Name Role Phone Eleanor Andres MD Unavailable Encounter Details Date Type Department Care Team (Late st Contact Info) Description 04/12/2025 Results Follow-Up [facility] [address] [facility] [place] [address] Ana Maria Negrete LPN [address] [employer] [place] [address] RECURRENT VAGINITIS (HTRX) Social History Tobacco Use Types Packs/Day Years Used Date Smoking Tobacco: Never Assessed Estimated Date of Delivery Comme nts Yes 09/24/2025 Based on Ultraso und Sex and Gender Information Value Date Recorded Sex Assigned at Not on file Legal Sex Female 11:40 AM EDT Gender Identity Not on file Sexual Orientation Not on file documented as of this encounter Miscellaneous Notes * Result Encounter Note - Ana Maria Negrete LPN - 04/13/2025 1:18 PM EDT Pt notified and treated. * Result Encounter Note - Ana Maria Negrete LPN - 04/12/2025 2:42 PM EDT Attempted to call but phone kept ringing busy. Will call again documented in this encounter Plan of Treatment Upcoming Encounters Date Type Department Care Team (Late st Contact Info) Description 08/16/2025 2:10 PM EDT Routine [facility] [address] [place] [address] [place] [phone] Peter Tellez, DO [address] [facility] [address] [place], [place] [id number] 08/31/2025 9:30 AM EDT Routine [facility] [address] [place] [address] [place] [phone] Brenad Traore, OCULARIST [address] [facility] [place] [address] 09/07/2025 9:50 AM EDT Routine [facility] [address] [place] [address] [place] [address] Peter Tellez, DO [address] [facility] [place] [address] 09/14/2025 10:30 AM EDT Routine [facility] [address] [place] [address] [place] [phone] Angela Horton PA [address] [facility] [place] [address] 09/21/2025 9:30 AM EDT Routine [facility] [address] [place] [address] [place] [address] Angela Horton, PA [address] [facility] [address] [place], [place] [phone] documented as of this encounter Visit Diagnoses Not on filedocumented in this encounter Care Teams Machine Stapler Relationship Specialty Start Date End Date Eleanor Andres MD [address] [facility] [address] [place] [address] PCP - [facility] Garett NITROCELLULOSE MAKER 02/22/24 documented as of this encounter
--- OUTSIDE RECORDS SUMMARY | 2025-08-03 11:34 | XMS_ITS | Encounter Summary ---
Author Organization [facility] Address [address] [place] [address] Care Team Providers Care Road Grader Name Role Phone Eleanor Andres MD Unavailable Encounter Details Date Type Department Care Team (Late Contact Info) Description 08/03/2025 Bamboo flowsheet ESTHER LUCIANO [address] [facility] [place] [address] Angela Horton PA [address] [facility] [address] [place], [facility] Social History Tobacco Use Types Packs/Day Years [...] PM EDT Routine [facility] Mahendra LUCIANO [address] [facility] [place] [address] Peter Tellez DO [address] [facility] [address] [place], [facility] 08/31/2025 9:30 AM EDT Routine NOMChiara LUCIANO [address] [facility] [place] [address] Brenda Traore, PEARL STRINGER [address] [facility] [place] [phone] 09/07/2025 9:50 AM EDT Routine [facility] [address] [facility] [place] [phone] Peter Tellez DO [address] [facility] [place] [address] 09/14/2025 10:30 AM EDT Routine [facility] [address] [facility] [place] [address] Angela Horton, PA [address] [facility] [address] [place], [place] [id number] 09/21/2025 9:30 AM EDT Routine [facility] [address] [facility] [place] [phone] Angela Horton, PA [address] [facility] [place] [address] documented as of this encounter Visit Diagnoses Not on filedocumented in this encounter Care Teams Road Grader Relationship Specialty Start Date End Date Eleanor Andres MD [address] [facility] [[email or web address] [address] [place] [address] PCP - [facility] Garett GUEST EXPERIENCE REPRESENTATIVE 02/22/24 documented as of this encounter
--- OUTSIDE RECORDS SUMMARY | 2025-08-03 11:34 | XMS_ITS | Clinical Summary ---
Author Organization [facility] Address [address] [facility] [place] [address] Care Team Providers Care Senior Accounting Associate Name Role Phone Unavailable Primary Care Provider Unavailabl e Source Comments The following information is NOT included in Care Everywhere downloads:Psychiatric notes, ECG results, Cardiac Rehab notes, Pulmonary Function notes, data from SmartForms (includes but not limited toPregnancy data,audiograms, eye exams, pre-surgical evaluation notes, well-child exam data).[facility] Social History Tobacco Use Types Packs/Day Years Used Date Smoking Tobacco: Never Assessed Comments Unknown Sex and Gender Information Value Date Recorded Sex Assigned at Not on file Legal Sex Female 2:42 PM EDT Gender Identity Not on file Sexual Orientation Not on file Plan of Treatment Health Maintenance Due Date Last Done Comments Hepatitis C Antibody 2014 Tdap Booster 2014 Hepatitis A (HAV) Vaccine (optional start 19+ years) 2015 Hepatitis B (HBV) Vaccine (1 of 3 - 19+ 3-dose series) 2015 Tetanus (Td or Tdap) Booster 2015 Pap Smear 2017 HPV Vaccine (optional start 27-45 years) 2023 COVID-19 Vaccine (1 - 2023-2 5 season) 2025 Influenza Vaccine (#1) 2025 Shingles (RZV) Vaccine (1 of 2) 2046 HIV Test Completed 12/02/2023 Mammography Discontinued Pneumococcal Vaccine(s) Aged Out No l onger eligible based on patient's age to complete this topic Insurance [facility] MEDICAID Member Subscriber Plan / Payer (Ef fective 2022-Present) Name:Kathie Valentin Relation to Subscriber:Self Name:Kathie Valentin Payer ID:[id number] (NAIC) Group ID:[id number] Type:Medicaid O Address: [place] [id number] Member Subscriber Plan / Payer (Ef fective 2022-Present) Name:Kathie Valentin Relation to Subscriber:Self Name:Kathie Valentin Payer ID:[id number] (NAIC) Group ID:[id number] Type:Medicaid HMO Address: [place] [id number]
--- OUTSIDE RECORDS SUMMARY | 2025-08-03 11:34 | XMS_ITS | Encounter Summary ---
Author Organization [employer] Address [id number] [address] [place] [address] Care Team Providers Care Powder Monkey Name Role Phone No Pcp, No Pcp Primary Care Provider Unavailabl e Encounter Details Date Type Department Care Team (Latest Contact Info) Description 07/27/2025 Travel Social History Tobacco Use Types Packs/Day Years Used Date Smoking Tobacco: Never Smokeless Tobacco: Never Alcohol Use Standard Drinks/Week Comments No 0 (1 standard drink = 0.6 oz pur e alcohol) [facility] Utilities Answer Date Recorded In the [...] things needed for daily living? No 07/11/2024 [place] Depression Scale Answer Date Recorded [place] Depression Scale Total 2 10/30/2022 The thought [...] got money to buy more. Never True 2025 Within the past 12 months th e food we bought just didn't last and we didn't have money to get more. Never True 2025 Purpose - Life Answer Date Recorded Purpose and direction in life Unknown Estimated Date of Delivery Comme nts Yes [...] 1:30 PM EDT Infusion Maria Fernanda L [facility] - Medical Oncology [address] [place] [phone] 08/30/2025 1:30 PM EDT Infusion Maria Fernanda L [facility] - Medical Oncology [address] [place] [phone] 09/11/2025 1:30 PM EDT Office Visit Maria Fernanda [facility] - Medical Oncology [address] [place] [phone] Kaylan Rainey, SCULPTURE CONSERVATOR-JACKSCREW MAN [address] [facility], [address] [place] [address] documented as of this encounter Visit Diagnoses Not on filedocumented in this encounter Additional Health Concerns Assessment Noted Time PHQ-9 Depression Total Score: 0 05/09/20 24 7:01 PM EDT documented as of this encounter Care Teams Powder Monkey Relationship Specialty Start Date End Date No Pcp, [place] [address] PCP - General Family Medicine 02/05/25 documented as of this encounter
--- OUTSIDE RECORDS SUMMARY | 2025-08-03 11:34 | XMS_ITS | Encounter Summary ---
Author Organization [facility] Address [address] [place] [address] Care Team Providers Care Asbestos Siding Installer Name Role Phone Eleanor Andres MD Unavailable Encounter Details Date Type Department Care Team (Late st Contact Info) Description 03/14/2025 Results Follow-Up [facility] [address] [place] [address] Ana Maria Negrete LPN [address] [place] [address] OB transvaginal Social History Tobacco Use Types Packs/Day Years [...] Note - Ana Maria Negrete LPN - 03/14/2025 4:24 PM EDT Pt notified and transferred upfront to schedule * Result Encounter Note - Ana Maria Negrete LPN - 03/14/2025 12:59 PM EDT Attempted to call but phone line was busy, will try again later. documented in this encounter Plan of Treatment Upcoming Encounters Date Type Department Care Team (Late st Contact Info) Description 08/16/2025 2:10 PM EDT Routine [facility] [address] [place] [address] [place] [phone] Peter Tellez, DO [address] [facility] [place] [address] 08/31/2025 9:30 AM EDT Routine [facility] [address] [place] [address] [place] [address] Brenda Traore, DOTTIE [address] [facility] [place] [phone] 09/07/2025 9:50 AM EDT Routine [facility] [address] [place] [address] [place] [phone] Peter Tellez, DO [address] [facility] [place] [address] 09/14/2025 10:30 AM EDT Routine [facility] [address] [place] [address] [place] [phone] Angela Horton PA [address] [facility] [address] [place], [place] [phone] 09/21/2025 9:30 AM EDT Routine [facility] [address] [place] [address] [place] [phone] Angela Horton, PA [address] [facility] [address] [place], [place] [phone] documented as of this encounter Visit Diagnoses Not on filedocumented in this encounter Care Teams Asbestos Siding Installer Relationship Specialty Start Date End Date Eleanor Andres MD [address] [facility] [place] [address] PCP - [facility] SECURITY INTELLIGENCE ANALYST 02/22/24 documented as of this encounter
--- OUTSIDE RECORDS SUMMARY | 2025-08-03 11:34 | XMS_ITS | Encounter Summary ---
Author Organization [facility] Address [address] [place] [address] Care Team Providers Care Tax Representative Name Role Phone Eleanor Andres MD Unavailable Encounter Details Date Type Department Care Team (Late Contact Info) Description 07/14/2025 Abstract ESTHER LUCIANO [address] [place] [address] Angela Horton PA [address] [facility] [address] [facility] [address] [place], [facility] Social History Tobacco Use Types Packs/Day Years [...] 08/16/2025 2:10 PM EDT Routine ESTHER LUCIANO [address] [place] [address] Peter Tellez DO [address] [facility] [address] [place], [facility] 08/31/2025 9:30 AM EDT Routine ESTHER LUCIANO [address] [place] [address] Brenda Traore, DOTTIE [address] [facility] [place] [phone] 09/07/2025 9:50 AM EDT Routine [facility] [place] [facility] [address] [place] [phone] Peter Tellez DO [address] [facility] [address] [place], [place] [phone] 09/14/2025 10:30 AM EDT Routine [facility] [address] [place] [phone] Angela Horton, PA [address] [facility] [address] [place], [place] [phone] 09/21/2025 9:30 AM EDT Routine [facility] [place] [facility] [address] [place] [phone] Angela Horton, PA [address] [facility] [address] [place], [place] [phone] documented as of this encounter Visit Diagnoses Not on filedocumented in this encounter Care Teams Tax Representative Relationship Specialty Start Date End Date Eleanor Andres MD [address] [place] [address] [address] [place] [address] PCP - [facility] HEAD OF ACQUISITIONS 02/22/24 documented as of this encounter
--- OUTSIDE RECORDS SUMMARY | 2025-08-03 11:34 | XMS_ITS | Encounter Summary ---
Author Organization [employer] Address [id number] [address] [place] [address] Care Team Providers Care Custodial Worker Name Role Phone No Pcp, No Pcp Primary Care Provider Unavailabl e Encounter Details Date Type Department Care Team (Late st Contact Info) Description 05/23/2025 Orders Only Maria Fernanda Cheng [facility] - Medical Oncology [address] [place] [address] Onelia Villa CMA Social History Tobacco Use Types Packs/Day Years Used Date Smoking Tobacco: Never Smokeless Tobacco: Never Alcohol Use Standard Drinks/Week Comments No 0 (1 standard drink = 0.6 oz pur e alcohol) [facility] Utilities Answer Date Recorded In the past [...] things needed for daily living? No 07/11/2024 [place] Depression Scale Answer Date Recorded [place] Depression Scale Total 2 10/30/2022 The thought [...] got money to buy more. Never True 04/07/2025 Within the past 12 months th e food we bought just didn't last and we didn't have money to get more. Never True 04/07/2025 Purpose - Life Answer Date Recorded Purpose [...] 1:30 PM EDT Infusion Maria Fernanda L [facility] - Medical Oncology [address] [place] [phone] 08/30/2025 1:30 PM EDT Infusion Maria Fernanda L [facility] - Medical Oncology [address] [place] [phone] 09/11/2025 1:30 PM EDT Office Visit Maria Fernanda L [facility] - Medical Oncology [address] [place] [phone] Kaylan Rainey APRN-DEICER REPAIRER [address] [place] [address], [address] [address] documented as of this encounter Visit Diagnoses Not on filedocumented in this encounter Additional Health Concerns Assessment Noted Time PHQ-9 Depression Total Score: 0 05/09/20 24 7:01 PM EDT documented as of this encounter Care Teams Custodial Worker Relationship Specialty Start Date End Date No [place]cp, [place] [address] PCP - General Family Medicine 02/05/25 documented as of this encounter
--- OUTSIDE RECORDS SUMMARY | 2025-08-03 11:34 | XMS_ITS | Encounter Summary ---
Author Organization [employer] Address [id number] [address] [place] [address] Care Team Providers Care Bed Control Specialist Name Role Phone No Pcp, No Pcp Primary Care Provider Unavailabl e Encounter Details Date Type Department Care Team (Late st Contact Info) Description 08/30/2024 Orders Only Maria Fernanda Cheng [facility] - Medical Oncology [address] [place] [address] Berna Higgins RN Social History Tobacco Use Types Packs/Day Years Used Date Smoking Tobacco: Never Smokeless Tobacco: Never Alcohol Use Standard Drinks/Week Comments No 0 (1 standard drink = 0.6 oz pur e alcohol) [facility] Utilities Answer Date Recorded In the [...] things needed for daily living? No 07/11/2024 [place] Depression Scale Answer Date Recorded [place] Depression Scale Total 2 10/30/2022 The thought [...] got money to buy more. Never True 08/31/2024 Within the past 12 months th e food we bought just didn't last and we didn't have money to get more. Never True 08/31/2024 Purpose - Life Answer Date Recorded Purpose [...] 1:30 PM EDT Infusion Maria Fernanda L [facility] - Medical Oncology [address] [place] [phone] 08/30/2025 1:30 PM EDT Infusion Maria Fernanda L [facility] - Medical Oncology [address] [place] [phone] 09/11/2025 1:30 PM EDT Office Visit Maria Fernanda L [facility] - Medical Oncology [address] [place] [phone] Kaylan Rainey, DRAWING OPERATOR-ASSEMBLY MACHINE OPERATOR [address] [place] [address], [address] [place] [address] documented as of this encounter Visit Diagnoses Not on filedocumented in this encounter Additional Health Concerns Assessment Noted Time PHQ-9 Depression Total Score: 0 05/09/20 24 7:01 PM EDT documented as of this encounter Care Teams Bed Control Specialist Relationship Specialty Start Date End Date No Pcp, [place] [address] PCP - General Family Medicine 02/05/25 documented as of this encounter
--- OUTSIDE RECORDS SUMMARY | 2025-08-03 11:34 | XMS_ITS | Encounter Summary ---
Author Organization [employer] Address [id number] [address] [place] [address] Care Team Providers Care Orthopedic Physician Assistant Name Role Phone No Pcp, No Pcp Primary Care Provider Unavailabl e Encounter Details Date Type Department Care Team (Late st Contact Info) Description 07/12/2025 Results Follow-Up [facility] - Medical Oncology [address] [place] [address] Mitul Vila MD [address] [place] [address] [address] [place] [address] CBC with auto diff, Iron and TIBC, Ferritin Social History Tobacco Use Types Packs/Day Years Used Date Smoking Tobacco: Never Smokeless Tobacco: Never Alcohol Use Standard Drinks/Week Comments No 0 (1 standard drink = 0.6 oz pur e alcohol) [facility] Utilities Answer Date Recorded In the past 12 months has e [employer], gas, oil, or water company threatened to [...] things needed for daily living? No 07/11/2024 [place] Depression Scale Answer Date Recorded [place] Depression Scale Total 2 10/30/2022 The thought [...] 1:30 PM EDT Infusion Maria Fernanda Gomez [facility] - Medical Oncology [address] [place] [phone] 08/30/2025 1:30 PM EDT Infusion Maria Fernanda Gomez [facility] - Medical Oncology [address] [place] [phone] 09/11/2025 1:30 PM EDT Office Visit Maria Fernanda Gomez [facility] - Medical Oncology [address] [place] [phone] Kaylan Rainey, CHANGE PERSON-HAIR BALER [address] [place] [address], [address] [place] [address] documented as of this encounter Visit Diagnoses Not on filedocumented in this encounter Additional Health Concerns Assessment Noted Time PHQ-9 Depression Total Score: 0 05/09/20 24 7:01 PM EDT documented as of this encounter Care Teams Orthopedic Physician Assistant Relationship Specialty Start Date End Date No Pcp, [place] [address] PCP - General Family Medicine 02/05/25 documented as of this encounter
--- OUTSIDE RECORDS SUMMARY | 2025-08-03 11:34 | XMS_ITS | Clinical Summary ---
Author Organization [facility] tem Address [id number] [address] [place] [address] Care Team Providers Care Grain Broker Name Role Phone No Pcp, No Pcp Primary Care Provider Unavailabl e Allergies Active Allergy Reactions Criticality Noted Date Comments Amoxicillin Itching Medium 08/25/2022 05/11/2024: tolerated ceftriaxone without allergic reaction Medications * This document contains information received from the source organization and may not represent a complete record from that organization. acetaminophen (TYLENOL EXTRA STRENGTH) 500 mg tablet Take 2 tablets (1,000 mg total) by mouth every 6 (six) hours as needed for pain. Active ibuprofen (MOTRIN) 800 mg tablet Take 1 tablet (800 mg total) by mouth 3 (three) times a day. 21 tablet 09/19/20 24 Active Additional Information Patient not taking.Reported on 2025 doxylamine-pyridox ine, vit B6, (DICLEGIS) 10-10 mg tablet,delayed release (DR/EC)Indications :Early stage of Take 2 tablets by mouth every 12 (twelve) hours. 14 tablet 02/06/20 25 Active Additional Information Patient not taking.Reported on 2025 21-iron fu-folic acid ( COMPLETE) 14 mg iron- 400 mcg tablet Take 1 tablet by mouth in the morning. 60 tablet 02/06/20 25 Active Additional Information Patient not taking.Reported on 2025 ferrous sulfate 325 (65 FE) MG tablet Take 1 tablet (325 mg total) by mouth daily with breakfast. Active ondansetron ODT (ZOFRAN ODT) 4 mg disintegrating tablet Dissolve 1 tablet (4 mg total) on tongue every 8 (eight) hours as needed for nausea or vomiting. Active PNV 019-qfirk-hmdit-3- fish oil 400-32.5 mcg-mg tablet,chewable Chew and swallow. 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 Had appt. For colpo but no showed Severe anemia 04/29/2022 Estimated Date of Delivery Comme nts Yes 09/24/2025 Based on Ultraso und Resolved Problems Problem Noted Date Diagnosed Date Resolved Date Iron deficiency anemia due t o chronic blood loss 05/29/2022 10/30/2022 Encounters Date Type Department Care Team Description 07/27/2025 Travel 07/19/2025 Documentation Maria Fernanda Gomez [facility] - Medical Oncology [address] [place] [address] Faith Bowman RN 07/12/2025 Orders Only [facility] A Department of [facility] [address] [place] [address] Mitul Vila MD Iron deficiency anemia due to chronic blood loss (Primary Dx); Severe anemia 07/12/2025 Results Follow-Up Maria Fernanda Goemz [facility] - Medical Oncology [address] [place] [phone] Mitul Vila MD CBC with auto diff, Iron and TIBC, Ferritin 07/12/2025 Travel 2025 2:00 PM EDT Office Visit Maternal- Medicine at [facility] [address] [place] [phone] Cherelle Magaña MD Placental abnormality in second trimester (Primary Dx); Suspected placental problem not found; History of sepsis 2025 12:57 PM EDT - 2025 11:59 PM EDT Hospital Encounter [facility] [address] [place] [phone] Abnormal ultrasound Discharge Disposition: Home 2025 Orders Only [facility]aternal- Medicine at [facility] [address] [place] [phone] Angela Stanley LPN Abnormal ultrasound (Primary Dx) 06/19/2025 Travel 05/29/2025 2:30 PM EDT Office Visit Maria Fernanda Gomez [facility] - Medical Oncology [address] [place] [phone] Kaylan Rainey APRN-HOSPICE RN Iron deficiency anemia due to chronic blood loss; Severe anemia; Anemia during ; Low platelet count; Fatigue, unspecified type 05/29/2025 Travel 05/23/2025 Orders Only Maria Fernanda Gomez [facility] - Medical Oncology [address] [place] [phone] Onelia Villa CMA 05/18/2025 Abstract Maternal- Medicine at [facility] [address] [place] [address] Cherelle Magaña MD 05/17/2025 Orders Only Maternal- Medicine at [facility] [address] [place] [phone] Lisa Perez RN Abnormal ultrasound (Primary Dx) from Last 3 Months Immunizations Immunization Administration Dates Next Due MMR 10/13/2022(),08/16/2018() Tdap 10/13/2022(),08/16/2018() Varicella 08/16/2018() Family History Medical History Relation Name Comments Diabetes Father Diabetes Paternal Grandmother Ovarian cancer Paternal Grandmother Relation Name Status Comments Father Paternal Grandmother Social History Tobacco Use Types Packs/Day Years Used Date Smoking Tobacco: Never Smokeless Tobacco: Never Tobacco Cessation:Counseling Given: Not Answered Alcohol Use Standard Drinks/Week Comments No 0 (1 standard drink = 0.6 oz pur e alcohol) [facility] Utilities Answer Date Recorded In the past 12 months has th e electric, gas, oil, or water company [...] things needed for daily living? No 07/11/2024 [place] Depression Scale Answer Date Recorded [place] Depression Scale Total 2 10/30/2022 The thought [...] Orientation Straight 10/10/2022 10 :30 AM EST Last Filed Vital Signs Vital Sign Reading Time Taken Comments Blood Pressure 107/70 2025 1:17 PM EDT Pulse 77 2025 1:17 PM EDT Temperature 36.7 C (98 F) 05/29/2025 2:30 PM EDT Respiratory Rate 16 05/29/2025 2:30 PM EDT Oxygen Saturation 100% 05/29/2025 2:30 PM EDT Inhaled Oxygen Concentration - - Weight 57.9 kg (127 lb 9.6 oz) 2025 1:17 P M EDT Height 177.8 cm (5' 10 ) 2025 1:17 PM EDT Body Mass Index 18.31 2025 1:17 PM EDT Plan of Treatment Upcoming Encounters Date Type Department Care Team (Late st Contact Info) Description 08/23/2025 1:30 PM EDT Infusion Maria Fernanda L [facility] - Medical Oncology [address] [place] [phone] 08/30/2025 1:30 PM EDT Infusion Maria Fernanda L [facility] - Medical Oncology [address] [place] [phone] 09/11/2025 1:30 PM EDT Office Visit Maria Fernanda L [facility] - Medical Oncology [address] [place] [phone] Kaylan Rainey APRN-HOSPICE RN [address] [place] [address], [address] [place] [address] Health Maintenance Due Date Last Done Comments Adult BMI Follow Up Plan 2014 DTaP,Tdap and Td Vaccines (2 - Tdap) 2015 04/26/2002 Depression Screening 05/09/2025 05/09/2024, 10/30/20 Influenza Vaccine 07/24/2025 Adult BMI Screening 2026 2025 Tobacco Screening 2026 2025 Pap Smear 04/11/2028 04/11/2025, 02/0 11/2023, 11/08/2021, Additional history exists Medical Devices Not on file Procedures Procedure Name Priority Date/Time Associated Diagnosis Comments US MFM OB FOLLOW-UP, 1 FETUS Routine 07/27/2025 3:15 PM EDT Abnormal ultrasound GLU 1H POST 50G LOAD Routine 07/13/2025 2:30 PM EDT Encounter for screening for diabetes mellitus GLUCOSE TOLERANCE, 1 HR 50GM LOAD ( PATIENTS ONLY) Routine 07/13/2025 2:30 PM EDT Encounter for screening for diabetes mellitus FERRITIN Routine 07/12/2025 11:58 AM EDT Iron deficiency anemia due to chronic blood loss Anemia during Fatigue, unspecified type IRON AND TIBC Routine 07/12/2025 11:58 AM EDT Iron deficiency anemia due to chronic blood loss Anemia during Fatigue, unspecified type CBC WITH AUTO DIFFERENTIAL Routine 07/12/2025 11:58 AM EDT Iron deficiency anemia due to chronic blood loss Anemia during Fatigue, unspecified type US MFM COMPREHENSIVE ANATOMIC SURVEY Routine 2025 2:38 PM EDT Abnormal ultrasound PAP SMEAR Routine 12/24/2023 6:22 AM EST Cervical smear, as part of routine gynecological examination Second trimester from Last 3 Months or Most Recently Relevant to Health Maintenance Results * US MFM OB FOLLOW-UP, 1 FETUS (07/27/2025 3:15 PM EDT) Only the most recent of2 resultswithin the time period is included. Anatomical Region Laterality Modality OB-FILTER TANK TENDER HELPER Ultrasound 07/27/2025 2:35 PM EDT Narrative 07/27/2025 4:36 PM EDT NAME: VERO PIERCE : 1995 SEX: F Accession Number: [id number] ORDERING PHYSICIAN: CHERELLE MAGAÑA REFERRING PHYSICIAN: PRANAY JO Coding ----- --------- Procedures 63414: Follow-up Ultrasound, per fetus Indication ----- --------- Screening for follow-up survey, Supervision of high risk -(short interval between pregnancies), Insufficient care, Grand multiparity. History ----- --------- OB History 7. Para 5 [id number] Maternal Assessment ----- --------- Physical Exam Height 178 cm, 5 ft 10 in. Initial weight 52 kg, 115 lb. Initial BMI 16.50 kg/m Method ----- --------- Transabdominal ultrasound examination. ----- --------- Beavers . Number of fetuses: 1 Dating ----- --------- LMP on: 01/01/2025 GA by LMP 29 w + 4 d GIRMA by LMP: 10/08/2025 Previous Ultrasound on: 03/09/2025 Type of prior assessment: CRL U/S measurement at prior assessment date 47.0 mm GA by previous U/S 31 w + 4 d GIRMA by previous Ultrasound: 09/24/2025 Ultrasound examination on: 07/27/2025 GA by U/S based upon: AC, BPD, Femur, HC GA by U/S 31 w + 0 d GIRMA by U/S: 09/28/2025 Assigned: based on ultrasound (CRL), selected on 2025 Assigned GA (weeks days) 31 w + 4 d Assigned GIRMA: 09/24/2025 General Evaluation ----- --------- Cardiac activity Present. FHR 134 bpm. Presentation: cephalic Placenta: Placental site: posterior, previously documented away from cervical os Umbilical cord: Cord vessels: 3 vessel cord. Insertion site: documented previously Amniotic fluid: Amount of AF: normal amount. MVP 6.9 cm Biometry ----- --------- Standard BPD 77.7 mm 31w 1d 28% Hadlock OFD 97.9 mm 31w 4d 52% Narayan HC 280.1 mm 30w 5d 4% Hadlock Cerebellum tr 37.9 mm 31w 0d 16% Hill AC 277.5 mm 31w 6d 55% Hadlock Femur 57.6 mm 30w 1d 8% Hadlock Humerus 50.1 mm 29w 2d 5% Narayan HC / AC 1.01 EFW 1,707 g 26% Hadlock EFW (lb) 3 lb EFW (oz) 12 oz EFW by: Hadlock ([id number]) Extended Tibia 50.3 mm 30w 0d 17% Narayan Contract Processor 5.2 mm CM 8.6 mm 84% Nicolaides Inner IOD 18.9 mm Outer IOD 46.4 mm Head / Face / Neck Cephalic index 0.79 47% Nicolaides Nasal bone: documented previously Extremities / Bony Struc FL / BPD 0.74 FL / HC 0.21 FL / AC 0.21 Other Structures FHR 134 bpm Anatomy ----- --------- The following structures appear normal: Head/Neck: Cranium. Lateral ventricles. Cavum septi pellucidi. Cerebellum. Cisterna magna. Parenchyma. Vermis. Face: Maxilla. Mandible. Orbits. Heart/Thorax: 4-chamber view. LVOT view. Situs. Interventricular septum. Great vessels. Cardiac position. Cardiac axis. Cardiac size. Cardiac rhythm. Diaphragm. Abdomen: Abdom. wall. Stomach. Kidneys. Bladder. Spine: Sacral spine. The following structures were documented previously: Head / Neck Choroid plexus. Midline falx. Neck. Face Lips. Profile. Nose. Nasal bone. Heart / Thorax RVOT view. 3-vessel view. 2-lcvecl-ophsjhc view. Aortic arch view. Bicaval view. Ductal arch view. Right lung. Left lung. Abdomen Cord insertion. Small bowel. Large bowel. Right renal artery. Left renal artery. Genitals. Spine Cervical spine. Thoracic spine. Lumbar spine. Extremities/Skeleton: Right upper arm. Right forearm. Right hand. Left upper arm. Left forearm. Left hand. Right upper leg. Right lower leg. Right foot. Left upper leg. Left lower leg. Left foot. Maternal Structures ----- --------- Uterus Visualized Cervix Suboptimal Approach - Transabdominal Right Ovary Not visualized Left Ovary Not visualized Cul de Sac Suboptimal Impression ----- --------- Single live intrauterine . 31w 4d. Normal growth. EFW measures at the 26%, AC measures at the 55%. Amniotic fluid MVP measures 6.9 cm. No sonographic evidence of placenta accreta identified at this time. anatomic survey did not reveal sonographic evidence of any gross structural abnormalities. Recommendations ----- --------- Please see [facility] recommendations from prior clinical and/or ultrasound report documentation. Subsequent follow up or other follow up as clinically determined by primary OB provider unless otherwise specified by [facility]. Results forwarded to ordering provider so they can follow up with the patient as necessary. Procedure Note Edd Frias MD - 07/27/2025 NAME: VERO PIERCE : 1995 SEX: F Accession Number: [id number] ORDERING PHYSICIAN: CHERELLE MAGAÑA REFERRING PHYSICIAN: PRANAY JO Coding ----- --------- Procedures 41523: Follow-up Ultrasound, per fetus Indication ----- --------- Screening for follow-up survey, Supervision of high risk - (shortinterval between pregnancies), Insufficient care, Grand multiparity. History ----- --------- OB History 7. Para 5 [id number] Maternal Assessment ----- --------- Physical Exam Height 178 cm, 5 ft 10 in. Initial weight 52 kg, 115 lb.Initial BMI 16.50 kg/m Method ----- --------- Transabdominal ultrasound examination. ----- --------- Beavers . Number of fetuses: 1 Dating ----- --------- LMP on: 01/01/2025 GA by LMP 29 w + 4 d GIRMA by LMP: 10/08/2025 Previous Ultrasound on: 03/09/2025 Type of prior assessment: CRL U/S measurement at prior assessment date 47.0 mm GA by previous U/S 31 w + 4 d GIRMA by previous Ultrasound: 09/24/2025 Ultrasound examination on: 07/27/2025 GA by U/S based upon: AC, BPD, Femur, HC GA by U/S 31 w + 0 d GIRMA by U/S: 09/28/2025 Assigned: based on ultrasound (CRL), selected on 2025 Assigned GA (weeks days) 31 w + 4 d Assigned GIRMA: 09/24/2025 General Evaluation ----- --------- Cardiac activity Present. FHR 134 bpm. Presentation: cephalic Placenta: Placental site: posterior, previously documented away fromcervical os Umbilical cord: Cord vessels: 3 vessel cord. Insertion site: documentedpreviously Amniotic fluid: Amount of AF: normal amount. MVP 6.9 cm Biometry ----- --------- Standard BPD 77.7 mm 31w 1d 28% Hadlock OFD 97.9 mm 31w 4d 52% Narayan HC 280.1 mm 30w 5d 4% Hadlock Cerebellum tr 37.9 mm 31w 0d 16% Hill AC 277.5 mm 31w 6d 55% Hadlock Femur 57.6 mm 30w 1d 8% Hadlock Humerus 50.1 mm 29w 2d 5% Narayan HC / AC 1.01 EFW 1,707 g 26% Hadlock EFW (lb) 3 lb EFW (oz) 12 oz EFW by: Hadlock ([id number]) Extended Tibia 50.3 mm 30w 0d 17% Narayan Contract Processor 5.2 mm CM 8.6 mm 84% Nicolaides Inner IOD 18.9 mm Outer IOD 46.4 mm Head / Face / Neck Cephalic index 0.79 47% Nicolaides Nasal bone: documented previously Extremities / Bony Struc FL / BPD 0.74 FL / HC 0.21 FL / AC 0.21 Other Structures FHR 134 bpm Anatomy ----- --------- The following structures appear normal: Head/Neck: Cranium. Lateral ventricles. Cavum septi pellucidi. Cerebellum.Cisterna magna. Parenchyma. Vermis. Face: Maxilla. Mandible. Orbits. Heart/Thorax: 4-chamber view. LVOT view. Situs. Interventricular septum.Great vessels. Cardiac position. Cardiac axis. Cardiac size. Cardiac rhythm. Diaphragm. Abdomen: Abdom. wall. Stomach. Kidneys. Bladder. Spine: Sacral spine. The following structures were documented previously: Head / Neck Choroid plexus. Midline falx. Neck. Face Lips. Profile. Nose. Nasal bone. Heart / Thorax RVOT view. 3-vessel view. 8-drudmy-dkvceat view. Aorticarch view. Bicaval view. Ductal arch view. Right lung. Left lung. Abdomen Cord insertion. Small bowel. Large bowel. Right renalartery. Left renal artery. Genitals. Spine Cervical spine. Thoracic spine. Lumbar spine. Extremities/Skeleton: Right upper arm. Right forearm. Right hand. Leftupper arm. Left forearm. Left hand. Right upper leg. Right lower leg. Right foot. Left upper leg. Left lower leg. Leftfoot. Maternal Structures ----- --------- Uterus Visualized Cervix Suboptimal Approach - Transabdominal Right Ovary Not visualized Left Ovary Not visualized Cul de Sac Suboptimal Impression ----- --------- Single live intrauterine . 31w 4d. Normal growth. EFW measures at the 26%, AC measures at the 55%. Amniotic fluid MVP measures 6.9 cm. No sonographic evidence of placenta accreta identified at this time. anatomic survey did not reveal sonographic evidence of any grossstructural abnormalities. Recommendations ----- --------- Please see [facility] recommendations from prior clinical and/or ultrasoundreport documentation. Subsequent follow up or other follow up as clinically determined byprimary OB provider unless otherwise specified by [facility]. Results forwarded to ordering provider so they can follow up with thepatient as necessary. Cherelle Magaña MD [facility] [place] ORDERABLES Final Resul t * Glucose 1h post 50g load (07/13/2025 2:30 PM EDT) GLUCOSE, 1HR POST 50GM LOAD 102 65 - 139 mg/dL 07/13/2025 5:58 PM EDT [facility] Blood Venous blood / Unknown Venipuncture / Unknown 07/13/2025 2:30 PM EDT 07/13/2025 2:30 PM EDT Angela KAUR LAB BLOOD ORDERABLES Final Resul t [facility] [address] [place] [address], [place] [phone] * (ABNORMAL) CBC with auto diff (07/12/2025 11:58 AM EDT) WBC 4.7 4 - 11 x10E9/L 07/12/2025 8:27 PM EDT [facility] RBC Count 4.18 3.8 - 5.2 X10E12/L 07/12/2025 8:27 PM EDT [facility] Hemoglobin 12.0 11.7 - 15.5 g/dL 07/12/2025 8:27 PM EDT [facility] Hematocrit 35.6 35 - 47 % 07/12/2025 8:27 PM EDT [facility] MCV 85 80 - 100 fL 07/12/2025 8:27 PM EDT [facility] MCH 28.7 27 - 34 pg 07/12/2025 8:27 PM EDT [facility] MCHC 33.7 32 - 36 g/dL 07/12/2025 8:27 PM EDT [facility] RDW 13.2 11.5 - 15 % 07/12/2025 8:27 PM EDT [facility] Platelet Count 109(L) 150 - 450 X10E9/L 07/12/2025 8:27 PM EDT [facility] MPV 9.9 7 - 12 fL 07/12/2025 8:27 PM EDT [facility] Neutrophils % 58.6 % 07/12/2025 8:27 PM EDT [facility] Lymphocytes % 31.5 % 07/12/2025 8:27 PM EDT [facility] Monocytes % 8.7 % 07/12/2025 8:27 PM EDT [facility] Eosinophils % 0.7 % 07/12/2025 8:27 PM EDT [facility] Basophils % 0.5 % 07/12/2025 8:27 PM EDT [facility] Neutrophils Absolute (A) 2.8 1.5 - 6.6 10*3/uL 07/12/2025 8:27 PM EDT [facility] Lymphocytes Absolute 1.5 1.0 - 3.5 10*3/uL 07/12/2025 8:27 PM EDT [facility] Monocytes Absolute 0.4 0.0 - 0.9 10*3/uL 07/12/2025 8:27 PM EDT [facility] Eosinophils Absolute 0.0 0.0 - 0.4 10*3/uL 07/12/2025 8:27 PM EDT [facility] Basophils Absolute 0.0 0.0 - 0.2 10*3/uL 07/12/2025 8:27 PM EDT [facility] Differential Type AUTOMATED DIFFERENTIAL 07/12/2025 8:27 PM EDT [facility] Blood Venous blood / Unknown Venipuncture / Unknown 07/12/2025 11:58 AM EDT 07/12/2025 11:58 AM EDT us Mitul Vila MD LAB BLOOD ORDERABLES Final Resul t [facility] [address] [place] [address], [place] [phone] * (ABNORMAL) Iron and TIBC (07/12/2025 11:58 AM EDT) IRON 39(L) 50 - 170 ug/dL 07/12/2025 6:10 PM EDT [facility] TRANSFERRIN 353(H) 168 - 336 mg/dL 07/12/2025 6:10 PM EDT [facility] IRON BINDING 494(H) 250 - 425 ug/dL 07/12/2025 6:10 PM EDT [facility] IRON SATURATION 8(L) 15 - 50 % SATURATION 07/12/2025 6:10 PM EDT [facility] Blood Venous blood / Unknown Venipuncture / Unknown 07/12/2025 11:58 AM EDT 07/12/2025 11:58 AM EDT us Mitul Vila MD LAB BLOOD ORDERABLES Final Resul t [facility] [address] [place] [address], [place] [phone] * (ABNORMAL) Ferritin (07/12/2025 11:58 AM EDT) FERRITIN 7(L) 11 - 307 ng/mL 07/12/2025 6:20 PM EDT [facility] Blood Venous blood / Unknown Venipuncture / Unknown 07/12/2025 11:58 AM EDT 07/12/2025 11:58 AM EDT us Mitul Vila MD LAB BLOOD ORDERABLES Final Resul t [facility] [address] [place] [id number], * (ABNORMAL) Pap Smear (12/24/2023 6:22 AM EST) 12/24/2023 6:22 AM EST 12/24/2023 6:58 AM EST Narrative COPATH - 01/04/2024 5:52 PM EST [facility] [address] [place] [address] Gynecologic Cytology Consultation Patient Name:KATHIE PHAM:1995 (Age: 28)Gender:FTaken:4Reported:01/04/2024hysician(s):AGUSTINA Licona ([phone])Copy To: Rec. #:[id number]: #[id number] Final Cytologic Interpretation ThinPrep Pap Test (Cervical): Satisfactory for evaluation. A transformation zone component is present. SQUAMOUS EPITHELIAL CELL ABNORMALITY A high-grade squamous intraepithelial lesion (HSIL) is present. cjb/01/04/2024 Interpretation performed at [facility], [address] [place] [address], License number: [id number]. Electronically Signed Out By Amalia Castorena MD Date of Last Menstrual Period: 08/01/23 Other Clinical Conditions: Z01.419 Production Expediter exam wo/abn findings Z34.92 Previous abnormal pap Source of Specimen ThinPrep Pap Test (Cervical) Thin Prep Pap (FILTER TANK TENDER HELPER) Fee Code(s): G0145, 04101 us Cherelle Marc Peña CHEMICAL RESEARCH TECHNICIAN-HOSPICE RN PATHOLOGY/CYTOLOGY ORDER TWYLA Final Result COPATH from Last 3 Months or Most Recently Relevant to Health Maintenance [place] [address] [facility] MEDICAID Advance Directives * Full Code (Latest Code Status on File) Date Activated Date Inactivated Comments 07/11/2024 8:23 PM 07/12/2024 6:22 PM * Full Code Date Activated Date Inactivated Comments 07/11/2024 2:09 PM 07/11/2024 7:41 PM * Full Code Date Activated Date Inactivated Comments 05/09/2024 5:43 PM 05/12/2024 7:50 PM * Full Code Date Activated Date Inactivated Comments 05/07/2024 10:11 AM 05/09/2024 5:36 PM * Full Code Date Activated Date Inactivated Comments 10/11/2022 2:50 AM 10/13/2022 5:11 PM Care Teams Grain Broker Relationship Specialty Start Date End Date No Pcp, [place] [address] PCP - General Family Medicine 02/05/25
--- OUTSIDE RECORDS SUMMARY | 2025-08-03 11:34 | XMS_ITS | Encounter Summary ---
Author Organization [facility] Address [address] [place] [address] Care Team Providers Care Informatica Name Role Phone Eleanor Andres MD Unavailable Encounter Details Date Type Department Care Team (Late Contact Info) Description 07/20/2025 Bamboo flowsheet ESTHER LUCIANO [address] [facility] [place] [address] Peter Tellez DO [address] [facility] [address] [place], [facility]11 Social History Tobacco Use Types Packs/Day [...] PM EDT Routine [facility] Mahendra LUCIANO [address] [place] [address] Peter Tellez DO [address] [place], [facility]11 08/31/2025 9:30 AM EDT Routine NOMChiara LUCIANO [address] [place] [address] Brenda Traore, SOLAR ENERGY CONSULTANT AND DESIGNER [address] [facility] [place] [phone] 09/07/2025 9:50 AM EDT Routine [facility] OBGYN [address] [facility] [place] [address] Peter Tellez DO [address] [facility] [place] [address] 09/14/2025 10:30 AM EDT Routine [facility] OBGYN [address] [facility] [place] [address] Angela Horton, PA [address] [facility] [place] [address] 09/21/2025 9:30 AM EDT Routine [facility] OBGYN [address] [facility] [place] [address] Angela Horton, PA [address] [facility] [place] [address] documented as of this encounter Visit Diagnoses Not on filedocumented in this encounter Care Teams Informatica Relationship Specialty Start Date End Date Eleanor Andres MD [address] [facility] 110 [place] [address] PCP - [facility] Garett BREAKDOWN MILL OPERATOR 02/22/24 documented as of this encounter
--- OUTSIDE RECORDS SUMMARY | 2025-08-03 11:34 | XMS_ITS | Encounter Summary ---
Author Organization [facility] Address [address] [place] [address] Care Team Providers Care Inspecting Machine Adjuster Name Role Phone Eleanor Andres MD Unavailable Encounter Details Date Type Department Care Team (Late Contact Info) Description 04/25/2025 Orders Only NOMChiara LUCIANO [address] [facility] [place] [address] Mis Guadarrama LPN [address] [facility] N[place], [place] [address] Social History Tobacco Use Types Packs/Day Years [...] PM EDT Routine [facility] Mahendra LUCIANO [address] [place] [address] Peter Tellez DO [address] [facility] [address] [place], [place] [phone] 08/31/2025 9:30 AM EDT Routine [facility] Mahendra LUCIANO [address] [place] [address] Brenda Traore, SHOE CLEANER [address] [facility] [place] [phone] 09/07/2025 9:50 AM EDT Routine [facility] [place] [facility] [address] [facility] [place] [address] Peter Tellez DO [address] [facility] [address] [place], [place] [phone] 09/14/2025 10:30 AM EDT Routine [facility] OBGYN [address] [facility] [place] [address] Angela Horton PA [address] [facility] [address] [place], [place] [phone] 09/21/2025 9:30 AM EDT Routine [facility] OBGYN [address] [facility] [place] [phone] Angela Horton PA [address] [facility] [address] [place], [place] [phone] documented as of this encounter Procedures Procedure Name Priority Date/Time Associated Diagnosis Comments PAP SMEAR Routine 04/11/2025 12:00 AM EDT documented in this encounter Results * Pap Smear (04/11/2025 12:00 AM EDT) Swab Cervical swab / Unknown Rosalinda Nurse [facility] LAB CYTOLOGY ORDERABLES Final Result EXTERNAL LAB documented in this encounter Visit Diagnoses Not on filedocumented in this encounter Care Teams Inspecting Machine Adjuster Relationship Specialty Start Date End Date Eleanor Andres MD [address] [facility] 110 [place] [address] PCP - [facility] Garett NURSE PRACTITIONER HOME ASSESSMENTS 02/22/24 documented as of this encounter
--- OUTSIDE RECORDS SUMMARY | 2025-08-03 11:34 | XMS_ITS | Encounter Summary ---
Author Organization [employer] Address [id number] [address] [place] [address] Care Team Providers Care Umbrella Frame Maker Name Role Phone No Pcp, No Pcp Primary Care Provider Unavailabl e Encounter Details Date Type Department Care Team (Late st Contact Info) Description 10/01/2022 Telephone [facility]ne[facility] [address] [place] [address] Ciara Jesus CMA Social History [...] have Coronavirus / COVID-19? No / Unsure 10/03/2022 10:36 AM EST documented as of this encounter Miscellaneous Notes * Telephone Encounter - Ciara Jesus CMA - 10/01/2022 2:34 PM EST Patient left a voicemail asking about US ordered and why she needs to have done? I see the order asUS transabdominal follow up per fetus but am unsure what this order is for. Please advise. * Telephone Encounter - Gloria Hubbard LPN - 10/01/2022 2:34 PM EST Called Pt back, Pt aware of why the US was ordered. documented in this encounter Plan of Treatment Upcoming Encounters Date Type Department Care Team (Late st Contact Info) Description 08/23/2025 1:30 PM EDT Infusion Maria Fernanda L [facility] - Medical Oncology [address] [place] [phone] 08/30/2025 1:30 PM EDT Infusion Maria Fernanda L [facility] - Medical Oncology [address] [place] [phone] 09/11/2025 1:30 PM EDT Office Visit [facility] - Medical Oncology [address] [place] [phone] Kaylan Rainey, IT SECURITY ARCHITECT-[address], [address] [address] documented as of this encounter [...] documented as of this encounter Care Teams Umbrella Frame Maker Relationship Specialty Start Date End Date No [place]cp, [place] [address] PCP - General Family Medicine 02/05/25 documented as of this encounter
--- OUTSIDE RECORDS SUMMARY | 2025-08-03 11:34 | XMS_ITS | Clinical Summary ---
Author Organization [facility] Address [address] [place] [address] Care Team Providers Care Promotional Marketing Analyst Name Role Phone None, Provided MD Primary Care Provider Unavaila ble Allergies Active Allergy Reactions Criticality Noted Date Comments Amoxicillin Itching Medium 08/25/2022 05/11/2024: tolerated ceftriaxone without allergic reaction Medications acetaminophen (Tylenol) 500 mg tablet Take 1,000 mg by mouth every 6 (six) hours if needed. Active DOCOSAHEXAENOIC ACID ORAL Take 1 capsule by mouth in the morning. 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 Had appt. For colpo but no showed Severe anemia 04/29/2022 Immunizations Immunization Administration Dates Next Due DTaP, Unspecified 04/26/2002 IPV 04/26/2002 MMR 04/26/2002 Social History Tobacco Use Types Packs/Day Years Used Date Smoking Tobacco: Never Assessed [place] Safety & Environment Answer Date Rec orded Fear of Current or Ex-Partner Not on file Emotionally Abused Not on file 05/19/2024 Physically Abused Not on file 05/19/2024 Sexually Abused Not on file 05/19/2024 Physically or Sexually Abused Not on file Comments Unknown Sex and Gender Information Value Date Recorded Sex Assigned at Not on file Legal Sex Female 9:47 PM EDT Gender Identity Not on file Sexual Orientation Not on file Plan of Treatment Health Maintenance Due Date Last Done Comments IPV Vaccines (2 of 3 - 4-dos e series) 05/24/2002 04/26/2002 Depression Screening 2008 Varicella Vaccines (1 of 2 - 13+ 2-dose series) 2009 Pap Smear 2017 Adult Tetanus 2018 Influenza Vaccine (#1) 2025 Zoster Vaccines (1 of 2) 2046 HIB Vaccines Aged Out No longer eligi ble based on patient's age to complete this topic HPV Vaccines Aged Out No longer eligi ble based on patient's age to complete this topic Meningococcal B Vaccine Aged Out No l onger eligible based on patient's age to complete this topic Meningococcal Vaccine Aged Out No jazmine galen eligible based on patient's age to complete this topic Pneumococcal Vaccine: Pediat rics (0 to 5 Years) and At-Risk Patients (6 to 64 Years) Aged Out No longer eligi ble based on patient's age to complete this topic Rotavirus Vaccines Aged Out No longer eligible based on patient's age to complete this topic Insurance [facility] MEDICAID Care Teams Promotional Marketing Analyst Relationship Specialty Start Date End Date None, Provided, PCP - General 05/20/24
--- OUTSIDE RECORDS SUMMARY | 2025-08-03 11:34 | XMS_ITS | Encounter Summary ---
Author Organization [facility] Address [id number] [address] [place] [address] Care Team Providers Care Drying Room Operator Name Role Phone No Pcp, No Pcp Primary Care Provider Unavailabl e Encounter Details Date Type Department Care Team (Late st Contact Info) Description 02/16/[address] [facility] - Lab [address] [place] [address] Joanie Pacheco, CPT Severe anemia Social History Tobacco Use Types Packs/Day Years [...] Answer Date Recorded Total Score 0 04/30/2022 [place] Depression Scale Answer Date Recorded [place] Depression Scale Total 2 10/30/2022 The thought [...] have Coronavirus / COVID-19? No / Unsure 02/16/2023 9:46 AM EDT documented as of this encounter Plan of Treatment Upcoming Encounters Date Type Department Care Team (Late st Contact Info) Description 08/23/2025 1:30 PM EDT Infusion Maria Fernanda L [facility] - Medical Oncology [address] [place] [phone] 08/30/2025 1:30 PM EDT Infusion Maria Fernanda L [facility] - Medical Oncology [address] [place] [phone] 09/11/2025 1:30 PM EDT Office Visit Maria Fernanda L [facility] - Medical Oncology [address] [place] [phone] Kaylan Rainey, FORENSIC SCIENCE TECHNICIAN-[address], [place] [address] documented as of this encounter Procedures Procedure Name Priority Date/Time Associated Diagnosis Comments IRON AND TIBC Routine 02/16/2023 11:18 AM EDT Severe anemia documented in this encounter Results * (ABNORMAL) Iron and TIBC (02/16/2023 11:18 AM EDT) Iron 22(L) 50 - 170 ug/dL 02/16/2023 9:53 PM EDT [facility] Tibc-calc only do not order 370 250 - 425 ug/dL 02/16/2023 9:53 PM EDT [facility] Iron Saturation 6(L) 15 - 50 % SATURATION 02/16/2023 9:53 PM EDT [facility] PLASMA 02/16/2023 11:1 8 AM EDT 02/16/2023 7:25 PM EDT us Mitul Vila MD LAB BLOOD ORDERABLES Final Resul t [facility] [address], [address] [place] [address] documented in this encounter Visit Diagnoses Diagnosis Severe anemia documented in this encounter Additional Health Concerns Infection [...] documented as of this encounter Care Teams Drying Room Operator Relationship Specialty Start Date End Date No Pcp, [place] [address] PCP - General Family Medicine 02/05/25 documented as of this encounter
--- OUTSIDE RECORDS SUMMARY | 2025-08-03 11:34 | XMS_ITS | Encounter Summary ---
Author Organization [facility] Address [address] [place] [address] Care Team Providers Care Booth Usher Name Role Phone Eleanor Andres MD Unavailable Encounter Details Date Type Department Care Team (Late Contact Info) Description 06/22/2025 Abstract ESTHER LUCIANO [address] [facility] [place] [address] Peter Tellez DO [address] [facility] [place], [id number] Social History Tobacco Use Types Packs/Day Years [...] Info) Description 08/16/2025 2:10 PM EDT Routine NOMChiara LUCIANO [address] [place] [address] [place] [address] Peter Tellez DO [address] [place] [address] 08/31/2025 9:30 AM EDT Routine NOMChiara LUCIANO [address] [place] [address] Brenda Traore, DOTTIE [address] [facility] [place] [phone] 09/07/2025 9:50 AM EDT Routine [facility] OBGYN [address] [facility] [place] [address] Peter Tellez DO [address] [place] [address] 09/14/2025 10:30 AM EDT Routine [facility] OBGYN [address] [facility] [place] [address] Angela Horton PA [address] [place], [place] [phone] 09/21/2025 9:30 AM EDT Routine [facility] [place] [facility] [address] [facility] [place] [address] Angela Horton PA [address] [place] [address] documented as of this encounter Visit Diagnoses Not on filedocumented in this encounter Care Teams Booth Usher Relationship Specialty Start Date End Date Eleanor Andres MD [address] [facility] 110 [place] [address] PCP - [facility] Garett WIRE WINDER 02/22/24 documented as of this encounter
[2025-08-03 12:16] LABS: Hematocrit 34.8 % (36.0-48.0); Hemoglobin 11.5 g/dL (12.0-16.0); Immature Granulocytes Abs Auto 0.07 10^3/uL (0.00-0.03); Immature Granulocytes Pct Auto 1.3 % (0.0-0.5); Lymphocytes Absolute Auto 1.3 10^3/uL (1.2-3.8); Mean Corpuscular HGB Conc 33.0 g/dL (29.9-35.2); Mean Corpuscular Hemoglobin 28.7 pg (26.7-34.0); Mean Corpuscular Volume 86.8 fL (81.0-99.0); Platelet Count 107 10^3/uL (150-450); Red Blood Count 4.01 10^6/uL (4.20-5.40); White Blood Count 5.4 10^3/uL (4.0-11.0)
[2025-08-16 15:26] LABS: Hematocrit 35.5 % (36.0-48.0); Hemoglobin 11.8 g/dL (12.0-16.0); Immature Granulocytes Abs Auto 0.06 10^3/uL (0.00-0.03); Immature Granulocytes Pct Auto 0.9 % (0.0-0.5); Lymphocytes Absolute Auto 1.4 10^3/uL (1.2-3.8); Mean Corpuscular HGB Conc 33.2 g/dL (29.9-35.2); Mean Corpuscular Hemoglobin 28.6 pg (26.7-34.0); Mean Corpuscular Volume 86.2 fL (81.0-99.0); Platelet Count 122 10^3/uL (150-450); Red Blood Count 4.12 10^6/uL (4.20-5.40); White Blood Count 6.6 10^3/uL (4.0-11.0)
== END 2025-08-23 08:09 | disposition home or self-care (01) ==
LOC: LAB 11:30
PROVIDERS: PCP Nurse Practitioner Family; Visit Provider Obstetrics & Gynecology
DX: Z51.81 Encounter for therapeutic drug level monitoring (principal); D69.6 Thrombocytopenia, unspecified
CPT/HCPCS: 36415; 85025

== ENCOUNTER 2025-08-31 19:14 | Outpatient (REF) | payer MEDICAID, SELFPAY | END 2025-08-31 19:15 | disposition home or self-care (01) | LOC: LAB 19:14 | PROVIDERS: PCP Nurse Practitioner Family; Visit Provider Nurse Practitioner Family | DX: Z34.93 Encounter for supervision of normal pregnancy, unspecified, third trimester (principal) | CPT/HCPCS: 87081 ==

== ENCOUNTER 2025-09-07 09:24 | Outpatient (RCR) | payer MEDICAID, SELFPAY ==
[2025-08-29 14:13] LABS: Hematocrit 36.4 % (36.0-48.0); Hemoglobin 12.3 g/dL (12.0-16.0); Immature Granulocytes Abs Auto 0.04 10^3/uL (0.00-0.03); Immature Granulocytes Pct Auto 0.7 % (0.0-0.5); Lymphocytes Absolute Auto 1.3 10^3/uL (1.2-3.8); Mean Corpuscular HGB Conc 33.8 g/dL (29.9-35.2); Mean Corpuscular Hemoglobin 28.7 pg (26.7-34.0); Mean Corpuscular Volume 84.8 fL (81.0-99.0); Platelet Count 114 10^3/uL (150-450); Red Blood Count 4.29 10^6/uL (4.20-5.40); White Blood Count 5.8 10^3/uL (4.0-11.0)
[2025-08-29 14:39] LABS: Iron 67.0 ug/dL (50.0-170.0); Percent Iron Saturation 13.7 %; Total Iron Binding Capacity 489.0 ug/dL (250.0-450.0)
[2025-08-29 15:00] LABS: Ferritin 13.0 ng/mL (8.0-252.0)
[2025-09-07 10:40] VITALS: BP 107/71; PULSE 76; TEMP 36.7; O2SAT 99
[2025-09-07] MEDS: IRON SUCROSE COMPLEX 300 MG in 0.9 % SODIUM CHLORIDE 250 ML 176.667 MG IV (10:54)
--- NOTE | 2025-09-07 11:29 | PC.NURSE ---
Tolerating iron infusion without c/o or s&s of adverse reaction.
--- NOTE | 2025-09-07 11:51 | PC.NURSE ---
Assisted pt. up to bathroom.
== END 2025-09-22 23:59 | disposition home or self-care (01) ==
LOC: HEMC 09:24
PROVIDERS: PCP Nurse Practitioner Family; Visit Provider Internal Medicine Hematology & Oncology
DX: O99.013 Anemia complicating pregnancy, third trimester (principal); D50.9 Iron deficiency anemia, unspecified; D69.6 Thrombocytopenia, unspecified; K90.9 Intestinal malabsorption, unspecified; O99.891 Other specified diseases and conditions complicating pregnancy; Z3A.37 37 weeks gestation of pregnancy
CPT/HCPCS: 36415; 82728; 83540; 83550; 83615; 85025; 96365; 96366; G0463; J1756

== ENCOUNTER 2025-09-20 16:55 | Observation (INO) | payer MEDICAID, SELFPAY ==
--- OUTSIDE RECORDS SUMMARY | 2024-09-20 05:30 | XMS_ITS ---
Author Organization [facility] vices Address [address] [place] [phone] Care Team Providers Care Internal Medicine Veterinary Technician Name Role Phone Douglas Elizabeth Primary Care Provider [phone] Bev Cantu Unavailable [phone] Fernanda Salvador Unavailable [phone] REASON FOR VISIT Limited Exam Social History Sex Assigned At : Social History Observation Description Sex Assigned At Female Encounters Encounter Location Date Provider Diagnosis Dental Main [address] [place], [place] [phone] 09/20/2024 Fernanda Salvador Plan Of Treatment No Information Progress Notes * Kathie PHAM SDOB:1994 (30 yo F)Acc No.[id number]:09/20/2024 Patient:?Kathie PHAM :?Fernanda Salvador DMDDOB:1995???Age:29 Y ???Sex:FemaleDate:09/20/2024hone:[phone]:Wenceslao MCKEON, [address] SethiATRIUM HEALTH HARRISBURGWU-[address]Wfg:Douglas Elizabeth Subjective: * Chief Complaints: * 1 . Limited Exam. * Medical History: Objective: * Vitals: Assessment: Plan: * Treatment: * Billing Information: * Visit Code: * Procedure Codes: * Electronic signature of Fernanda Salvador DMD on 09/20/2025 at 04:58 PM EDTSign off status: Pending * Provider: Alexandra Salvador DMD Date: 1 Generated for Printing/Faxing/eTransmitting on:?09/20/2025 04:58 PM EDT
--- OUTSIDE RECORDS SUMMARY | 2025-02-01 05:30 | XMS_ITS ---
Author Organization [facility] vices Address [address] [place] [phone] Care Team Providers Care Cable Tool Driller Name Role Phone Douglas Elizabeth Primary Care Provider Bev Cantu Unavailable [phone] Luke Rod Unavailable [phone] REASON FOR VISIT Periodic Exam Social History Sex Assigned At : Social History Observation Description Sex Assigned At Female Encounters Encounter Location Date Provider Diagnosis Dental Main [address] [place], [place] [phone] 02/01/2025 Luke Rod Plan Of Treatment No Information Progress Notes * Kathie PHAM SDOB:1994 (30 yo F)Acc No.[id number]:02/01/2025 Patient:?Kathie PHAM :?Luke Rod DDSDOB:1995???Age:29 Y ???Sex:FemaleDate:02/01/2025Phone:[phone]:Wenceslao MCKEON, [address] SethiCASEY, [place]LO-[id number]:Douglas Elizabeth Subjective: * Chief Complaints: * 1 . Periodic Exam. * Medical History: Objective: * Vitals: Assessment: Plan: * Treatment: * Billing Information: * Visit Code: * Procedure Codes: * Electronic signature of Luke Rod DDS on 09/20/2025 at 04:58 PM EDTSign off status: Pending * Provider: Rach Rod DDS Date: 0 02/01/2025 Generated for Printing/Faxing/eTransmitting on:?09/20/2025 04:58 PM EDT
--- OUTSIDE RECORDS SUMMARY | 2025-08-29 09:30 | XMS_ITS ---
Author Organization [facility] in [place] Address [address] [place] [address] Care Team Providers Care Film Composer Name Role Phone MARAL SOTO Unavailable [phone] REASON FOR VISIT New PT Hem Encounters Encounter Location Date Provider Diagnosis [facility] Oncology [address] [place] [phone] 08/29/2025 MARAL SOTO Plan Of Treatment No Information Progress Notes * Kathie PHAMDOB:[birth year] (30 yo F)Acc No.[id number]:08/29/2025 UNLOCKED PROGRESS NOTE Progress Notes Patient: Kathie ZAMORA :?MARAL SOTO M.D.:1995???Age:30 Y ???Sex:FemaleDate:08/29/2025Phone:[phone]:[address] [place] [address] [address] [place], [place] Subjective: * Chief Complaints: * 1 . MD New PT Hem. * Medical History: Objective: * Vitals: Assessment: Plan: * Treatment: * * Electronic signature of MARAL SOTO MD on 09/20/2025 at 04:58 PM EDTSign off status: PendingVisit Status:?PEN (Pending) * Provider: Navdeep SOTO M.D. Date: Generated for Printing/Faxing/eTransmitting on:?09/20/2025 04:58 PM EDT
--- OUTSIDE RECORDS SUMMARY | 2025-09-07 07:30 | XMS_ITS ---
Author Organization [facility] in [place] Address [address] [place] [address] Care Team Providers Care Fulfillment Associate Name Role Phone MARAL SOTO Unavailable [phone] REASON FOR VISIT Iron sucrose injection (Venofer) Encounters Encounter Location Date Provider Diagnosis [facility] Oncology [address] [place] [phone] 09/07/2025 MARAL SOTO Plan Of Treatment No Information Progress Notes * Kathie PHAMDOB:[birth year] (30 yo F)Acc No.[id number]:09/07/2025 UNLOCKED PROGRESS NOTE Progress Note Patient: Kathie ZAMORA :?MARAL SOTO M.D.:1995???Age:30 Y ???Sex:FemaleDate:09/07/2025Phone:[phone]:[address] [place] [address] [address] [place] [place], [place] Subjective: * Chief Complaints: * 1 . Iron sucrose injection (Venofer). * Medical History: Objective: * Vitals: Assessment: Plan: * Treatment: * * Electronic signature of MARAL SOTO MD on 09/20/2025 at 04:58 PM EDTSign off status: PendingVisit Status:?PEN (Pending) * Provider: Navdeep SOTO M.D. Date: 1 Generated for Printing/Faxing/eTransmitting on:?09/20/2025 04:58 PM EDT
--- OUTSIDE RECORDS SUMMARY | 2025-09-07 09:50 | XMS_ITS | Encounter Summary ---
Author Organization [facility] Address [address] [place] [address] Care Team Providers Care Network Operations Technician Name Role Phone Eleanor Andres MD Unavailable Reason for Visit * ReasonCommentsRoutine Visit Encounter Details DateTypeDepartmentCare Team (Latest Contact Info)Sspjmrtjrpg38/16/2025 9:50 AM EDTRoutine [facility]YN [address] [place] [address] Peter Tellez DO [address] [facility] [place], [place] [phone] 37 weeks gestation of ([facility]); Third trimester ([facility]) Social History Tobacco UseTypesPacks/DayYears UsedDateSmoking Tobacco: Never Assessed Estimated Date of TpcfgkqjBprvdakoNuc35/02/2025Based on UltrasoundSex and Gender InformationValueDate RecordedSex Assigned at BirthNot on fileLegal SexFemale 08/17/2024 11:40 AM EDTGender IdentityNot on fileSexual OrientationNot on file documented as of this encounter Last Filed Vital Signs Vital SignReadingTime TakenCommentsBlood Asrwsvbz034/6409/07/2025 10:12 AM EDT Pulse--Temperature--Respiratory Rate--Oxygen Saturation--Inhaled Oxygen Concentration--Gpcloa63 kg (141 lb)09/07/2025 10:12 AM CNXEawllj492.3 cm (5' 9 ) 09/07/2025 10:21 AM EDTBody Mass Index20.8209/07/2025 10:12 AM EDTdocumented in this encounter Progress Notes * Obdulia Rivas, CLINICAL STATISTICS MANAGER - 09/07/2025 9:50 AM EDT Reason for Appointment: Patient ID: [...] 28-0.8 MG tablet 1 tablet, Every morning YR-Fzs-NM-Putnam-3 ( Gummies/DHA & FA) 0.4-32.5 MG chewable tablet Oral ALLERGIES Allergies[1] PROBLEMS Active Ambulatory Problems Diagnosis Date Noted ([facility]) 07/04/2025 Third trimester ([facility]) 07/04/2025 Request for sterilization 08/16/2025 Resolved Ambulatory Problems Diagnosis Date Noted No Resolved Ambulatory Problems Past Medical History: Diagnosis Date Miscarriage ([facility]) 01/2023 Pre-eclampsia in period ([facility]) 10/11/2022 Sepsis ([facility]) 05/09/2024 HISTORY PAST MEDICAL HISTORY SOCIAL HISTORY Medical History[2] Social History Tobacco Use Smoking status: Not on file Smokeless tobacco: Not on file Substance Use Topics Alcohol use: Not on file Drug use: Not on file FAMILY HISTORY Family History[3] SURGICAL HISTORY Surgical History[4] REVIEW OF SYSTEMS Review of Systems: Review [...] nursing note reviewed. Exam conducted with a auto garage mechanic present. Vitals: Estimated body mass index is 20.82 kg/m?? as calculated from the following: Height as of this encounter: 5' 9 . Weight as of this encounter: 141 lb. BP: 110/64 Patient's last menstrual period was 01/01/2025. ASSESSMENT & PLAN ICD-10-CM 1. 37 weeks gestation of ([facility]) Z3A.37 POCT urinalysis dipstick manually resulted 2. Third trimester ([facility]) Z34.93 Patient presents today for a routine obstetrics appointment. Patient is currently 37w4d with a Estimated Date of Delivery: 09/24/25. Patient advised that she will have a pelvic exam performednext week at her return appointment. RTC in 1 week for routine OB appointment. Patient is also being seen by Hematology. Documented by Obdulia Rivas LPN on behalf of: Peter Tellez DO [1] Allergies Allergen Reactions Amoxicillin Itching 05/11/2024: tolerated ceftriaxone without allergic reaction [2] Past Medical History: Diagnosis Date Miscarriage ([facility]) 01/2023 @ 9 weels Pre-eclampsia in period ([facility]) 10/11/2022 Sepsis ([facility]) 05/09/2024 sepsis after deliverying infant 2 days later due to strep A [3] No family history on file. [4] History reviewed. No pertinent surgical history. documented in this encounter Plan of Treatment DateTypeDepartmentCare Team (Latest Contact Info)Noaeylrgtxv89/30/2025 9:30 AM EDTRoutine [facility] O[facility] [address] [place] [phone] Angela Horton PA [address] [facility] [place] [address] documented as of this encounter Procedures Procedure NamePriorityDate/TimeAssociated DiagnosisCommentsPOCT URINALYSIS IMCFYUHMIuorfup63/16/2025 10:21 AM EDT 37 weeks gestation of ([facility]) documented in this encounter Results * (ABNORMAL) POCT urinalysis dipstick manually resulted (09/07/2025 10:21 AM EDT)ComponentValueRef RangeTest MethodAnalysis TimePerformed AtPathologist SignatureColor, UAYellowClarity, UACloudyGlucose, UANegativeNegative - 1999(110) ++++ mg/dLBilirubin, UANegativeNegative - 4(70) +++ mg/dLKetones, UA NegativeNegative - 160(16) ++++ mg/dLSpec Grav, UA1.0151 - 1.03Blood, UA NegativeNegative - 50 Roland/mcLpH, UA6.55 - 9Protein, UA1+Negative - 2000(20) ++++ mg/dLUrobilinogen, UA1.00.2 - 12 mg/dLLeukocytes, UA3+Negative - 500+++ Ethan/mcLNitrite, UANegativeNegative - PositiveSpecimen (Source)Anatomical Location / LateralityCollection Method / VolumeCollection TimeReceived Time Urine09/07/2025 10:21 AM EDT Narrative Authorizing ProviderResult TypeResult StatusCorey Rosalinda DOPOINT OF CARE TEST ENTER/EDIT ORDERABLESFinal Result documented in this encounter Visit Diagnoses Diagnosis 37 weeks gestation of ([facility]) Third trimester ([facility]) state, incidental documented in this encounter Care Teams Team MemberRelationshipSpecialtyStart DateEnd Date Eleanor Andres MD [address] [facility] [address] [place] [phone] PCP - [facility] Garett [facility]02/22/24documented as of this encounter
--- OUTSIDE RECORDS SUMMARY | 2025-09-12 11:45 | XMS_ITS ---
Author Organization [facility] in [place] Address [address] [place] [address] Care Team Providers Care Fisher Pot Name Role Phone MARAL SOTO Unavailable [phone] REASON FOR VISIT MD TELEHEALTH Encounters Encounter Location Date Provider Diagnosis [facility] Oncology [address] [place] [phone] 09/12/2025 MARAL SOTO Plan Of Treatment No Information Progress Notes * Kathie PHAMDOB:[birth year] (30 yo F)Acc No.[id number]:09/12/2025 UNLOCKED PROGRESS NOTE Progress Notes Patient: Kathie ZAMORA :?MARAL SOTO M.D.:1995???Age:30 Y ???Sex:FemaleDate:09/12/2025Phone:[phone]:[address] [place] [address] [address] [place], [place] Subjective: * Chief Complaints: * 1 . TELEHEALTH. * Medical History: Objective: * Vitals: Assessment: Plan: * Treatment: * * Electronic signature of MARAL SOTO MD on 09/20/2025 at 04:59 PM EDTSign off status: PendingVisit Status:?ANSPH (Voice) * Provider: Navdeep SOTO M.D. Date: Generated for Printing/Faxing/eTransmitting on:?09/20/2025 04:59 PM EDT
--- OUTSIDE RECORDS SUMMARY | 2025-09-14 10:30 | XMS_ITS | Encounter Summary ---
Author Organization [facility] Address [address] [place] [address] Care Team Providers Care Hse Specialist Name Role Phone Eleanor Andres MD Unavailable Reason for Visit * ReasonCommentsRoutine Visit Encounter Details DateTypeDepartmentCare Team (Latest Contact Info)Eqmdwmbnchb25/23/2025 10:30 AM EDTRoutine [facility] Mahendra LUCIANO [address] [place] [place] [address] Angela Horton PA [address] [place], [facility] 38 weeks gestation of ([facility]); Third trimester ([facility]); Request for sterilization; Thrombocytopenia affecting , antepartum ([facility]); UTI symptoms Social History Tobacco UseTypesPacks/DayYears UsedDateSmoking Tobacco: Never AssessedPHQ-2 AnswerDate RecordedPatient Health Questionnaire-2 Wenrm137 Estimated Date of OouqxyrtAytctzmkDob09/02/2025Based on UltrasoundSex and Gender InformationValueDate RecordedSex Assigned at BirthNot on fileLegal SexFemale 08/17/2024 11:40 AM EDTGender IdentityNot on fileSexual OrientationNot on file documented as of this encounter Last Filed Vital Signs Vital SignReadingTime TakenCommentsBlood Wbqrzayh364/7009/14/2025 10:37 AM EDT Pulse--Temperature--Respiratory Rate--Oxygen Saturation--Inhaled Oxygen Concentration--Uiltqa88 kg (141 lb)09/14/2025 10:37 AM EDTHeight--Body Mass Index20.8210/ 10:21 AM EDTdocumented in this encounter Functional Status * Over the past 2 weeks, how often have you been bothered by any of the following problems?QuestionAnswerDate of AssessmentAuthorLittle interest or pleasure in doing thingsNot at all09/14/2025 9:49 AM Angela Garcia LPN Feeling down, depressed, or hopelessNot at all09/14/2025 9:49 AM Angela Garcia LPNPatient Health Questionnaire-2 Cxuec476 9:49 AM Angela Garcia LPN documented as [...] 28-0.8 MG tablet 1 tablet, Every morning FA-Ozt-[facility]-[place]-3 ( Gummies/DHA & FA) 0.4-32.5 MG chewable tablet Chew ALLERGIES Allergies Allergen Reactions Amoxicillin Itching 05/11/2024: tolerated ceftriaxone without allergic reaction PROBLEMS Active Ambulatory Problems Diagnosis Date Noted ([facility]) 07/04/2025 Third trimester ([facility]) 07/04/2025 Request for sterilization 08/16/2025 Resolved Ambulatory Problems Diagnosis Date Noted No Resolved Ambulatory Problems Past Medical History: Diagnosis Date Miscarriage ([facility]) 01/2023 Pre-eclampsia in period ([facility]) 10/11/2022 Sepsis ([facility]) 05/09/2024 HISTORY PAST MEDICAL HISTORY SOCIAL HISTORY Past Medical History: Diagnosis Date Miscarriage ([facility]) 01/2023 @ 9 weels Pre-eclampsia in period ([facility]) 10/11/2022 Sepsis ([facility]) 05/09/2024 sepsis after deliverying infant 2 [...] nursing note reviewed. Exam conducted with a duralumin metalworker present. Vitals: Estimated body mass index is 20.82 kg/m?? as calculated from the following: Height as of 09/07/25: 5' 9 . Weight as of this encounter: 141 lb. BP: 120/70 Patient's last menstrual period was 01/01/2025. Assessment/Plan ICD-10-CM 1. 38 weeks gestation of ([facility]) Z3A.38 POCT urinalysis dipstick manually resulted 2. Third trimester ([facility]) Z34.93 POCT urinalysis dipstick manually resulted 3. Request for sterilization Z30.2 4. Thrombocytopenia affecting , antepartum ([facility]) O99.119 D69.6 Return OB: Patient presents today [...] Plan of Treatment DateTypeDepartmentCare Team (Latest Contact Info)Bzdxitmbpmd61/30/2025 9:30 AM EDTRoutine [facility] [address] [place] [phone] Angela Horton PA [address] [place] [address] NameTypePriorityAssociated DiagnosesOrder ScheduleUrine cultureMicrobiology Routine UTI symptoms Ordered: 09/14/2025documented as of this encounter Procedures Procedure NamePriorityDate/TimeAssociated DiagnosisCommentsPOCT URINALYSIS CSCWAXLKVxiftxx43/23/2025 10:47 AM EDT 38 weeks gestation of ([facility]) Third trimester ([facility]) documented in this encounter Results * (ABNORMAL) [...] 10:47 AM EDT Narrative Authorizing ProviderResult TypeResult StatusHealth[facility] TEST ENTER/EDIT ORDERABLESFinal Result documented in this encounter Visit Diagnoses Diagnosis 38 weeks gestation of ([facility]) Third trimester ([facility]) state, incidental Request for sterilization Thrombocytopenia affecting , antepartum ([facility]) UTI symptoms documented in this encounter Care Teams Team MemberRelationshipSpecialtyStart DateEnd Date Eleanor Andres MD [address] [place] [address] PCP - [facility]02/22/24documented as of this encounter
--- OUTSIDE RECORDS SUMMARY | 2025-09-20 16:58 | XMS_ITS ---
Author Organization [facility] Address [address] [place] [address] Care Team Providers Care Thai Masseur Name Role Phone Eleanor Andres MD Unavailable [facility] Status:Enrolled (Active) Start date:09/06/2025 Enrollment date:09/14/2025 Enrollment reason:Identified by Health Plan NameCatie Harley LPN(Responsible Staff)Licensed Practical Nurse [phone] Continued Care and Services Coordination
--- OUTSIDE RECORDS SUMMARY | 2025-09-20 16:58 | XMS_ITS | Clinical Summary ---
Author Organization [facility] tem Address [id number] 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 MedicationSigDispense QuantityRefillsLast FilledStart DateEnd DateStatus acetaminophen (TYLENOL EXTRA STRENGTH) 500 mg tablet Take 2 tablets (1,000 mg total) by mouth every 6 (six) hours as needed for pain. Active ibuprofen (MOTRIN) 800 mg tablet Take 1 tablet (800 mg total) by mouth 3 (three) times a day. 21 tablet 4Active Additional Information Patient not taking.Reported on 2025 doxylamine-pyridoxine, vit B6, (DICLEGIS) 10-10 mg tablet,delayed release (DR/EC) Indications:Early stage of pregnancyTake 2 tablets by mouth every 12 (twelve) hours. 14 tablet 5Active Additional Information Patient not taking.Reported on 2025 21-iron fu-folic acid ( COMPLETE) 14 mg iron- 400 mcg tablet Take 1 tablet by mouth in the morning. 60 tablet 5Active Additional Information Patient not taking.Reported on 2025 ferrous sulfate 325 (65 FE) MG tablet Take 1 tablet (325 mg total) by mouth daily with breakfast.Active ondansetron ODT (ZOFRAN ODT) 4 mg disintegrating tablet Dissolve 1 tablet (4 mg total) on tongue every 8 (eight) hours as needed for nausea or vomiting.Active PNV 662-hmffu-linjk-3-fish oil 400-32.5 mcg-mg tablet,chewable Chew and swallow.Active Active Problems ProblemNoted DateDiagnosed DatePeritonsillar fikkpcv8907/11/2024Nausea & vomiting 05/09/2024Sepsis associated qohwatlxwnp64/17/2024Low platelet count05/09/2024 Hydronephrosis of right qqtwal7605/09/20248824Vjjomj25/17/2024Normal labor05/07/2024 Late care12/24/2023 Overview (12/24/2023): 20 weeks at first visit Rubella non-immune status, /11/2024Susceptible to varicella (non- immune), currently yqoavaot04/11/2024History of caitnbdmjwq80/28/2023 Overview (11/19/2023): January 2023 Iron deficiency anemia due to chronic blood loss06/01/2023HSIL (high grade squamous intraepithelial lesion) on Pap smear of htbjpp1904/30/2022 Overview (04/30/2022): NEEDS COLPO 11/12/2021 date of PAP. Had appt. For colpo but no showed Severe saiizd4104/29/2022Estimated Date of NndzkpcaMflrfvhpYne24/02/2025 Based on Ultrasound Resolved Problems ProblemNoted DateDiagnosed DateResolved DateIron deficiency anemia due to chronic blood loss Encounters DateTypeDepartmentCare MhnqMdygtfndgby87/20/2025Telephone Maternal- Medicine at [facility] [address] [place] [address] Angela Stanley LPN 08/30/2025Telephone Maria Fernanda Cheng [facility] - Medical Oncology [address] [place] [address] Mitul Vila MD end therapy (Ending all infusions regarding Injectafer )07/27/2025Travel 07/19/2025Documentation Maria Fernanda Gomez [facility] - Medical Oncology [address] [place] [phone] Faith Bowman RN 07/12/2025Orders Only [facility] Hematology Oncology, A Department of [facility] [address] [facility] [address] [place] [phone] Mitul Vila MD Iron deficiency anemia due to chronic blood loss (Primary Dx); Severe tgxnfn7707/12/2025Results Follow-Up Maria Fernanda Gomez [facility] - Medical Oncology [address] [place] [address] Mitul Vila MD CBC with auto diff, Iron and TIBC, Wzxxcqjn21/20/7865Fkelgw56/30/2025 2:00 PM EDTOffice Visit Maternal- Medicine at [facility] [address] [place] [phone] Cherelle Magaña MD Placental abnormality in second trimester (Primary Dx); Suspected placental problem not found; History of tsmlgj4906/21/2025 12:57 PM EDT - 2025 11:59 PM EDTHospital Encounter [facility] [address] [place] [phone] Abnormal ultrasound Discharge Disposition: Home2025Orders Only Maternal- Medicine at [facility] [address] [place] [phone] Angela Stanley LPN Abnormal ultrasound (Primary Dx)from Last 3 Months Immunizations ImmunizationAdministration DatesNext NivMCR4312/13/2021(),08/16/2018()Tdap 10/13/2022(),08/16/2018()Dunpuzobq72/24/2018() Family History Medical HistoryRelationNameCommentsDiabetesFatherDiabetesPaternal Grandmother Ovarian cancerPaternal GrandmotherRelationNameStatusCommentsFatherPaternal Grandmother Social History Tobacco UseTypesPacks/DayYears UsedDateSmoking Tobacco: NeverSmokeless Tobacco: Never Tobacco Cessation:Counseling Given: Not Answered Alcohol UseStandard Drinks/WeekCommentsNo0 (1 standard drink = 0.6 oz pure alcohol)[facility] UtilitiesAnswerDate RecordedIn the past 12 months has the electric, gas, oil, or water company threatened to shut off services in your home?No 07/11/2024Overall Financial Resource Strain (CARDIA)AnswerDate RecordedHow hard is it for you to pay for the very basics like food, housing, medical care, and heating?Not hard at all05/09/2024HQ-2AnswerDate RecordedTotal Stwwq266 PRAPARE - TransportationAnswerDate RecordedIn the past 12 months, has lack of transportation kept you from medical appointments or from getting medications?No 07/11/2024In the past 12 months, has lack of transportation kept you from meetings, work, or from getting things needed for daily living?No07/11/2024 Hutchinson Depression ScaleAnswerDate RecordedEdinburgh Depression Scale Deeql10312/31/2021The thought of harming myself has occurred to me.Never10/30/2022Housing InstabilityAnswerDate RecordedAre you worried or concerned that in the next two months you may not have stable housing that you own, rent or stay in as a part of a household?No07/11/2024hildcareAnswerDate RecordedDo problems getting child day care teacher make it difficult for you to work or study?No04/30/2022EmploymentAnswerDate OhzuiztwBiqqslkevuJzeelss24/31/2019Hunger ScreeningAnswerDate RecordedWithin the past 12 months we worried whether our food would run out before we got money to buy more.Never True2025Within the past 12 months the food we bought just didn't last and we didn't have money to get more.Never True2025Purpose - LifeAnswerDate RecordedPurpose and direction in npvzLaseiln44/04/2021Estimated Date of DeliveryCommentsYes 5Based on UltrasoundSex and Gender InformationValueDate RecordedSex Assigned at XuhwyNwevyr80/18/2022 10:30 AM ESTLegal XawAhsjlx99/06/2015 11:51 AM EDTGender SwiogovzYrknvt62/18/2022 10:30 AM ESTSexual OrientationStraight 10/10/2022 10:30 AM EST Last Filed Vital Signs Vital SignReadingTime TakenCommentsBlood Nhbamlvd396/7007 1:17 PM EDT Tyysx188906/21/2025 1:17 PM LDNXrlqycxhyvm82.7 ??C (98 ??F)05/29/2025 2:30 PM EDT Respiratory Qdzt869405/29/2025 2:30 PM EDTOxygen Qhgrkljxjq400%05/29/2025 2:30 PM EDTInhaled Oxygen Concentration--Hltjmt44.9 kg (127 lb 9.6 oz)2025 1:17 PM PGBUhdxgb794.8 cm (5' 10 )2025 1:17 PM EDTBody Mass Index18.31006/21/2025 1:17 PM EDT Plan of Treatment Health MaintenanceDue DateLast DoneCommentsAdult BMI Follow Up Plan2014 DTaP,Tdap and Td Vaccines (2 - Tdap)Depression Screening /, 10/30/2022Influenza Uowzric6407/24/2025dult BMI Screening Tobacco Scegbguhf59Pap Smear04/11/2028 04/11/2025, 12/24/2023, 11/08/2021, Additional history exists Medical Devices Not on file Procedures Procedure NamePriorityDate/TimeAssociated DiagnosisCommentsUS MFM OB FOLLOW-UP, 1 DYIVMMnffwza89/04/2025 3:15 PM EDT Abnormal ultrasound GLU 1H POST 50G NCKQYgikamq99/21/2025 2:30 PM EDT Encounter for screening for diabetes mellitus GLUCOSE TOLERANCE, 1 HR 50GM LOAD ( PATIENTS ONLY)Gojnauw8207/13/2025 2:30 PM EDT Encounter for screening for diabetes mellitus WQQJWWDAEtdthjh26/20/2025 11:58 AM EDT Iron deficiency anemia due to chronic blood loss Anemia during Fatigue, unspecified type IRON AND THVVJgtidrf04/20/2025 11:58 AM EDT Iron deficiency anemia due to chronic blood loss Anemia during Fatigue, unspecified type CBC WITH AUTO JKUGQWFTLNXMWdbiurz27/20/2025 11:58 AM EDT Iron deficiency anemia due to chronic blood loss Anemia during Fatigue, unspecified type US MFM COMPREHENSIVE ANATOMIC ETRAHCBsibczt52/30/2025 2:38 PM EDT Abnormal ultrasound PAP LRJALFwifdno10/01/2024 6:22 AM EST Cervical smear, as part of routine gynecological examination Second trimester from Last 3 Months or Most Recently Relevant to Health Maintenance Results * US MFM OB FOLLOW-UP, 1 FETUS (07/27/2025 3:15 PM EDT) Only the most recent of2 resultswithin the time period is included. Anatomical RegionLateralityModalityOB-GYNUltrasoundSpecimen (Source)Anatomical Location / LateralityCollection Method / VolumeCollection TimeReceived Time 07/27/2025 2:35 PM EDT Narrative 07/27/2025 4:36 PM EDT NAME: ??VERO PIERCE : 1995 SEX: F Accession Number: [id number] ORDERING PHYSICIAN: CHERELLE MAGAÑA REFERRING PHYSICIAN: PRANAY JO Coding Procedures ? 27867: Follow-up Ultrasound, per fetus Indication Screening for follow-up survey, Supervision of high risk -(short interval between pregnancies), Insufficient care, Grand multiparity. History OB History ? 7. Para 5 ? [id number] Maternal Assessment Physical Exam ??Height 178 cm, 5 ft 10 in. Initial weight 52 kg, 115 lb. Initial BMI 16.50 kg/m?? Method Transabdominal ultrasound examination. Beavers . Number of fetuses: 1 Dating LMP on: ?01/01/2025 GA by LMP ?29 w + 4 d GIRMA by LMP: ?10/08/2025 Previous Ultrasound on: ?03/09/2025 Type of prior assessment: ?CRL U/S measurement at prior assessment date ? 47.0 mm GA by previous U/S ? 31 w + 4 d GIRMA by previous Ultrasound: ?09/24/2025 Ultrasound examination on: ? 07/27/2025 GA by U/S based upon: ??AC, BPD, Femur, HC GA by U/S ?31 w + 0 d GIRMA by U/S: ?09/28/2025 Assigned: ?based on ultrasound (CRL), selected on 2025 Assigned GA (weeks days) ? 31 w + 4 d Assigned GIRMA: ??09/24/2025 General Evaluation Cardiac activity Present. FHR 134 bpm. Presentation: cephalic Placenta: Placental site: posterior, previously documented away from cervical os Umbilical cord: Cord vessels: 3 vessel cord. Insertion site: documented previously Amniotic fluid: Amount of AF: normal amount. MVP 6.9 cm Biometry Standard BPD ?77.7 mm 31w 1d 28% Hadlock OFD ?97.9 mm 31w 4d 52% Narayan HC ? 280.1 mm ?30w 5d 4% Hadlock Cerebellum tr ??37.9 mm 31w 0d 16% Hill AC ? 277.5 mm ?31w 6d 55% Hadlock Femur ??57.6 mm 30w 1d 8% Hadlock Humerus ?50.1 mm 29w 2d 5% Narayan HC / AC ?1.01 EFW ?1,707 g ??26% Hadlock EFW (lb) ? 3 lb EFW (oz) ? 12 oz EFW by: ?Hadlock (LOL-QX-LK-FL) Extended Tibia ??50.3 mm 30w 0d 17% Narayan Is Consultant ? 5.2 mm CM ? 8.6 mm ?? 84% Nicolaides Inner IOD ?18.9 mm Outer IOD ?46.4 mm Head / Face / Neck Cephalic index 0.79 ? 47% Nicolaides Nasal bone: ?documented previously Extremities / Bony Struc FL / BPD ? 0.74 FL / HC ?0.21 FL / AC ?0.21 Other Structures FHR ?134 bpm Anatomy The following structures appear normal: Head/Neck: Cranium. Lateral ventricles. Cavum septi pellucidi. Cerebellum. Cisterna magna. Parenchyma. Vermis. Face: Maxilla. Mandible. Orbits. Heart/Thorax: 4-chamber view. LVOT view. Situs. Interventricular septum. Great vessels. Cardiac position. Cardiac axis. ? Cardiac size. Cardiac rhythm. ? Diaphragm. Abdomen: Abdom. wall. Stomach. Kidneys. Bladder. Spine: Sacral spine. The following structures were documented previously: Head / Neck ?Choroid plexus. Midline falx. ? Neck. Face ?? Lips. Profile. Nose. Nasal bone. Heart / Thorax RVOT view. 3-vessel view. 9-osoxtt-ryozpnw view. Aortic arch view. Bicaval view. Ductal arch view. ? Right lung. Left lung. Abdomen ?Cord insertion. Small bowel. Large bowel. Right renal artery. Left renal artery.Genitals. Spine ??Cervical spine. Thoracic spine. Lumbar spine. Extremities/Skeleton: Right upper arm. Right forearm. Right hand. Left upper arm. Left forearm. Left hand. Right upper leg. ? Right lower leg. Right foot. Left upper leg. Left lower leg. Left foot. Maternal Structures Uterus Visualized Cervix Suboptimal ? Approach - Transabdominal Right Ovary ?Not visualized Left Ovary ? Not visualized Cul de Sac ? Suboptimal Impression Single live intrauterine . 31w 4d. Normal growth. EFW measures at the 26%, AC measures at the 55%. Amniotic fluid MVP measures 6.9 cm. No sonographic evidence of placenta accreta identified at this time. anatomic survey did not reveal sonographic evidence of any gross structural abnormalities. Recommendations Please see [facility] recommendations from prior clinical and/or ultrasound report documentation. Subsequent follow up or other follow up as clinically determined by primary OB provider unless otherwise specified by [facility]. Results forwarded to ordering provider so they can follow up with the patient as necessary. Procedure Note Edd Frias MD - 07/27/2025 NAME: VERO PIERCE : 1995 SEX: F Accession Number: [id number] ORDERING PHYSICIAN: CHERELLE MAGAÑA REFERRING PHYSICIAN: PRANAY JO Coding Procedures 50965: Follow-up Ultrasound, per fetus Indication Screening for follow-up survey, Supervision of high risk -(short interval between pregnancies), Insufficient care, Grand multiparity. History OB History 7. Para 5 [id number] Maternal Assessment Physical Exam Height 178 cm, 5 ft 10 in. Initial weight 52 kg, 115 lb.Initial BMI 16.50 kg/m?? Method Transabdominal ultrasound examination. Beavers . Number of fetuses: 1 Dating LMP on: 01/01/2025 GA by LMP 29 [...] 4 d Assigned GIRMA: 09/24/2025 General Evaluation Cardiac activity Present. FHR 134 bpm. Presentation: cephalic Placenta: Placental site: posterior, previously documented away fromcervical os Umbilical cord: Cord vessels: 3 vessel cord. Insertion site: documented previously Amniotic fluid: Amount of AF: normal amount. MVP 6.9 cm Biometry Standard BPD 77.7 mm 31w 1d 28% [...] EFW (oz) 12 oz EFW by: Hadlock (IVK-BM-EB-FL) Extended Tibia 50.3 mm 30w 0d 17% Narayan Is Consultant 5.2 mm CM 8.6 mm 84% Nicolaides Inner IOD 18.9 mm Outer IOD 46.4 mm Head / Face / Neck Cephalic index 0.79 47% Nicolaides Nasal bone: documented previously Extremities / Bony Struc FL / BPD 0.74 FL / HC 0.21 FL / AC 0.21 Other Structures FHR 134 bpm Anatomy The following structures appear normal: Head/Neck: Cranium. [...] Heart / Thorax RVOT view. 3-vessel view. 1-huofji-eevhuqn view. Aorticarch view. Bicaval view. Ductal arch view. Right lung. Left lung. Abdomen Cord insertion. Small bowel. Large bowel. Right renalartery. Left renal artery. Genitals. Spine Cervical spine. Thoracic spine. Lumbar spine. Extremities/Skeleton: Right upper arm. Right forearm. Right hand. Leftupper arm. Left forearm. Left hand. Right upper leg. Right lower leg. Right foot. Left upper leg. Left lower leg. Leftfoot. Maternal Structures Uterus Visualized Cervix Suboptimal Approach - Transabdominal Right Ovary Not visualized Left Ovary Not visualized Cul de Sac Suboptimal Impression Single live intrauterine . 31w 4d. Normal growth. EFW measures at the 26%, AC measures at the 55%. Amniotic fluid MVP measures 6.9 cm. No sonographic evidence of placenta accreta identified at this time. anatomic survey did not reveal sonographic evidence of any grossstructural abnormalities. Recommendations Please see [facility] recommendations from prior clinical and/or ultrasoundreport documentation. Subsequent follow up or other follow up as clinically determined byprimary OB provider unless otherwise specified by [facility]. Results forwarded to ordering provider so they can follow up with thepatient as necessary. Authorizing ProviderResult TypeResult Omari Magaña MDAyanna ORDERABLES Final Result * Glucose 1h post 50g load (07/13/2025 2:30 PM EDT)ComponentValueRef RangeTest MethodAnalysis TimePerformed AtPathologist SignatureGLUCOSE, 1HR POST 50GM NTAN22720 - 139 mg/dL07/13/2025 5:58 PM [facility] Specimen (Source)Anatomical Location / LateralityCollection Method / Volume Collection TimeReceived TimeBloodVenous blood / UnknownVenipuncture / Unknown 07/13/2025 2:30 PM EDT07/13/2025 2:30 PM EDT Narrative Authorizing ProviderResult TypeResult StatusAngela LÓPEZ BLOOD ORDERABLES Final ResultPerforming OrganizationAddressCity/State/ZIP CodePhone Number [facility] [address] [place] [id number], * (ABNORMAL) CBC with auto diff (07/12/2025 11:58 AM EDT)ComponentValueRef Range Test MethodAnalysis TimePerformed AtPathologist SignatureWBC4.74 - 11 x10E9/L 07/12/2025 8:27 PM [facility] LABORATORYRBC Count4.183.8 - 5.2 X10E12/L07/12/2025 8:27 PM [facility] Sqlqyaikeq97.011.7 - 15.5 g/dL07/12/2025 8:27 PM [facility] LFSTXDPCLWDxietloemn07.635 - 47 %07/12/2025 8:27 PM [facility] UEYSOKPLSTZGE9078 - 100 fL07/12/2025 8:27 PM [facility] VCKHYUDBKLRLD58.727 - 34 pg07/12/2025 8:27 PM [facility] QHSLDQPGESRKWC80.732 - 36 g/dL07/12/2025 8:27 PM [facility] WOGKPMMKUJZSK75.211.5 - 15 %07/12/2025 8:27 PM [facility] LABORATORYPlatelet Khomu536(L)150 - 450 X10E9/L07/12/2025 8:27 PM EDT [facility]OR[facility]ORYMPV9.97 - 12 MN07/12/2025 8:27 PM [facility]ORATORYNeutrophils %58.6%07/12/2025 8:27 PM [facility]OR[facility]ORYLymphocytes %31.5%07/12/2025 8:27 PM [facility]OR[facility]ORYMonocytes %8.7%07/12/2025 8:27 PM [facility]OR[facility]ORYEosinophils %0.7%07/12/2025 8:27 PM [facility]ORATORYBasophils %0.5%07/12/2025 8:27 PM [facility] LABORATORYNeutrophils Absolute (A)2.81.5 - 6.6 10*3/uL 07/12/2025 8:27 PM [facility] LABORATORYLymphocytes Absolute 1.51.0 - 3.5 10*3/uL07/12/2025 8:27 PM [facility] Monocytes Absolute0.40.0 - 0.9 10*3/uL07/12/2025 8:27 PM [facility]ORATORYEosinophils Absolute0.00.0 - 0.4 10*3/uL07/12/2025 8:27 PM [facility] LABORATORYBasophils Absolute0.00.0 - 0.2 10*3/uL 07/12/2025 8:27 PM [facility] LABORATORYDifferential Type AUTOMATED XFQAWAMOKCAW05/20/2025 8:27 PM [facility] LABORATORYSpecimen (Source)Anatomical Location / LateralityCollection Method / VolumeCollection TimeReceived TimeBloodVenous blood / UnknownVenipuncture / Zpursad8607/12/2025 11:58 AM EDT07/12/2025 11:58 AM EDT Narrative Authorizing ProviderResult TypeResult StatusChang Rosa Vila [facility] BLOOD ORDERABLES Final ResultPerforming OrganizationAddressCity/State/ZIP CodePhone Number [facility] [address] [place] [address], * (ABNORMAL) Iron and TIBC (07/12/2025 11:58 AM EDT)ComponentValueRef RangeTest MethodAnalysis TimePerformed AtPathologist MsosxopyaDZUN59(L)50 - 170 ug/dL 07/12/2025 6:10 PM [facility] IYQYXBBPKTBVRZOJXRKNT499(H)168 - 336 mg/dL07/12/2025 6:10 PM [facility] LABORATORYIRON OKYWTLU638(H)250 - 425 ug/dL07/12/2025 6:10 PM [facility] LABORATORYIRON SATURATION8(L)15 - 50 % WDSMYEHILG20/20/2025 6:10 PM [facility] LABORATORYSpecimen (Source)Anatomical Location / Laterality Collection Method / VolumeCollection TimeReceived TimeBloodVenous blood / UnknownVenipuncture / Agjlqvb4807/12/2025 11:58 AM EDT07/12/2025 11:58 AM EDT Narrative Authorizing ProviderResult TypeResult StatusChang Rosa FRY BLOOD ORDERABLES Final ResultPerforming OrganizationAddressCity/State/ZIP CodePhone Number [facility] [address] [place] [address], * (ABNORMAL) Ferritin (07/12/2025 11:58 AM EDT)ComponentValueRef RangeTest MethodAnalysis TimePerformed AtPathologist SignatureFERRITIN7(L)11 - 307 ng/mL 07/12/2025 6:20 PM [facility] LABORATORYSpecimen (Source) Anatomical Location / LateralityCollection Method / VolumeCollection Time Received TimeBloodVenous blood / UnknownVenipuncture / Qvawynm5607/12/2025 11:58 AM EDT07/12/2025 11:58 AM EDT Narrative Authorizing ProviderResult TypeResult StatusChang Rosa FRY BLOOD ORDERABLES Final ResultPerforming OrganizationAddressCity/State/ZIP CodePhone Number [facility] [address] [place] [address], * (ABNORMAL) Pap Smear (12/24/2023 6:22 AM EST)Specimen (Source)Anatomical Location / LateralityCollection Method / VolumeCollection TimeReceived Time 12/24/2023 6:22 AM EST12/24/2023 6:58 AM EST Narrative COPATH - 01/04/2024 5:52 PM EST ? [facility] ? [address] ? [place] [address] ? Gynecologic Cytology Consultation ? Patient Name:KATHIE PHAM:1995 (Age: 28)Gender:FTaken:4Reported:4Physician(s):AGUSTINA Licona ([phone])Copy To: Rec. #:[id number]: #[id number] Final Cytologic Interpretation ThinPrep Pap Test (Cervical): Satisfactory for evaluation. A transformation zone component is present. SQUAMOUS EPITHELIAL CELL ABNORMALITY A high-grade squamous intraepithelial lesion (HSIL) is present. cjb/01/04/2024 Interpretation performed at [facility], [address] [place] [address], License number: [id number]. Electronically Signed Out By ?Amalia Castorena MD Date of Last Menstrual Period: ? 08/01/23 Other Clinical Conditions: Z01.419 Bobbin Collector exam wo/abn findings Z34.92 Previous abnormal pap Source of Specimen ??ThinPrep Pap Test (Cervical) ? Thin Prep Pap (AIR SAMPLING AND MONITORING) Fee Code(s): ?? G0145, 37872 Authorizing ProviderResult TypeResult StatusCherelle BERRIOS PATHOLOGY/CYTOLOGY ORDERABLESFinal ResultPerforming OrganizationAddress City/State/ZIP CodePhone Number [place] from Last 3 Months or Most Recently Relevant to Health Maintenance Insurance Advance Directives * Full Code (Latest Code Status on File) Date ActivatedDate InactivatedCommiravista [facility]07/11/2024 8:23 PM07/12/2024 6:22 PM * Full Code Date ActivatedDate InactivatedComments07/11/2024 2:09 PM07/11/2024 7:41 PM * Full Code Date ActivatedDate InactivatedComments05/09/2024 5:43 PM05/12/2024 7:50 PM * Full Code Date ActivatedDate InactivatedComments05/07/2024 10:11 AM05/09/2024 5:36 PM * Full Code Date ActivatedDate NyhryokjelrZxkpihnl50/19/2022 2:50 AM10/13/2022 5:11 PM Care Teams Team MemberRelationshipSpecialtyStart DateEnd Date No Pcp, [place] [address] [facility]
--- OUTSIDE RECORDS SUMMARY | 2025-09-20 16:58 | XMS_ITS | Clinical Summary ---
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 Role Phone Eleanor Andres MD Unavailable Allergies Active AllergyReactionsCriticalityNoted DateCommentsAmoxicillinItchingMedium 08/25/2022 05/11/2024: tolerated ceftriaxone without allergic reaction Medications MedicationSigDispense QuantityRefillsLast FilledStart DateEnd DateStatus Ferrous Sulfate (IRON PO) Take 1 tablet by mouth in the morning.5Active ondansetron ODT (Zofran-ODT) 4 MG disintegrating tablet Take 4 mg by mouth every 8 (eight) hours if evsfqb8108/31/2024ctive 28-0.8 MG tablet Take 1 tablet by mouth in the morning.5Active acetaminophen (Tylenol) 500 MG tablet Take 1,000 mg by mouth every 6 (six) hours if neededActive YZ-Uzh-EM-[place]-3 ( Gummies/DHA & FA) 0.4-32.5 MG chewable tablet ChewActive nitrofurantoin, macrocrystal-monohydrate, (Macrobid) 100 MG capsule Indications:BV (bacterial vaginosis)Take 1 capsule (100 mg) by mouth in the morning and 1 capsule (100 mg) before bedtime. Do all this for 7 days. 14 capsule 5Active terconazole (Terazol 7) 0.4 % vaginal cream Indications:Yeast infectionInsert 1 applicator into the vagina at bedtime for 7 days 45 g 5Active Active Problems ProblemNoted DateDiagnosed DateRequest for cedatiiakedaf19/24/2025Pregnancy ([facility])07/04/2025Third trimester ([facility])07/04/2025 Estimated Date of ZxtztbilFskaxvqvUfs57/02/2025ased on Ultrasound Encounters DateTypeDepartmentCare PlppDlfqwyofash96/24/2025bstract NOMS Mahendra LUCIANO [address] [place] [phone] Osiris [place] 09/15/2025Telephone NOMS Mahendra LUCIANO [address] [place] [phone] [place] 09/15/2025bstract [facility] [address] [place] [id number] Angela Harley LPN 09/14/2025 10:30 AM EDTRoutine NOMS Mahendra [place] [phone] Angela Horton PA 38 weeks gestation of ([facility]); Third trimester ([facility]); Request for sterilization; Thrombocytopenia affecting , antepartum ([facility]); UTI igamspzg54/23/2025External Result Encounter NOMS External Department Unsolicited Angela Horton PA 09/14/2025Patient Outreach [facility] [address] [place] [address] Angela Harley LPN 09/13/20258763Nlfeki48/16/2025 9:50 AM EDTRoutine NOMS Mahendra LUCIANO [address] [place] [address] Pranay Tellez DO 37 weeks gestation of ([facility]); Third trimester ([facility])09/07/2025amboo flowsheet NOMS Mahendra LUCIANO [address] [place] [address] Pranay Tellez DO 09/06/20258832Kprgbb61/09/2025 2:30 PM EDTRoutine NOMS [facility] [address] [place] [address] Brenda Traore, DOTTIE Third trimester ([facility]); 36 weeks gestation of ([facility])08/31/2025amboo flowsheet [facility] [address] [place] [address] Brenda Traore, DOTTIE 08/31/20252286Pnkhst84/24/2025 2:10 PM EDTRoutine NOM[facility] [address] [place] [address] Pranay Tellez, DO 34 weeks gestation of ([facility]); Third trimester ([facility]); Request for sterilization; Thrombocytopenia affecting , antepartum ([facility])5Clinisync Result Encounter NOMS External Department Unsolicited Pranay Tellez, DO 08/16/2025Telephone [facility] [address] [place] [address] Gilma Alfredo LPN 08/16/2025amboo flowsheet [facility] [address] [place] [address] Pranay Tellez, DO 08/03/2025 11:00 AM EDTRoutine NOMS [facility] [address] [place] [address] Angela Horton PA Third trimester ([facility]); 32 weeks gestation of ([facility])5Clinisync Result Encounter NOMS External Department Unsolicited Pranay Tellez, DO 08/03/2025amboo flowsheet [facility] [address] [place] [address] Angela Horton PA 07/28/2025bstract [facility] [address] [place] [address] Osiris [place] 07/20/2025 10:20 AM EDTRoutine NOMS [facility] [address] [place] [address] Pranay Tellez, Size of fetus inconsistent with dates in first trimester ([facility]) (Primary Dx); Third trimester ([facility]); 30 weeks gestation of ([facility]); Low platelet count07/20/2025amboo flowsheet [facility] [address] [place] [address] Pranay Tellez, 07/14/2025bstract [facility] [address] [place] [address] Angela Horton PA 07/13/2025External Result Encounter NOMS External Department Unsolicited Angela Horton PA 07/04/2025 10:50 AM EDTRoutine NOM[facility] [address] [place] [address] Pranay Tellez DO , unspecified gestational age ([facility]); Third trimester ([facility])07/04/2025amboo flowsheet [facility] [address] [place] [address] Pranay Tellez, 06/22/2025bstract [facility] [address] [place] [address] Pranay Tellez, 2025External Result Encounter N[facility]S [facility] [address] [place] [address] Pranay Tellez DO from Last 3 Months Social History Tobacco UseTypesPacks/DayYears UsedDateSmoking Tobacco: Never AssessedPHQ-2 AnswerDate RecordedPatient Health Questionnaire-2 Fklan321 Estimated Date of PhhghgynYcvmbeuwVqe55/02/2025Based on UltrasoundSex and Gender InformationValueDate RecordedSex Assigned at BirthNot on fileLegal SexFemale 08/17/2024 11:40 AM EDTGender IdentityNot on fileSexual OrientationNot on file Last Filed Vital Signs Vital SignReadingTime TakenCommentsBlood Xhovhpuf158/7009/14/2025 10:37 AM EDT Pulse--Temperature--Respiratory Rate--Oxygen Saturation--Inhaled Oxygen Concentration--Rijexz20 kg (141 lb)09/14/2025 10:37 AM EUAWdnxie021.3 cm (5' 9 ) 09/07/2025 10:21 AM EDTBody Mass Index20.8209/07/2025 10:21 AM EDT Plan of Treatment DateTypeDepartmentCare Team (Latest Contact Info)Sjoqlpjqyii60/30/2025 9:30 AM EDTRoutine NOMS [facility] [address] [place] [address] Angela Horton PA [address] [place] [address] Health MaintenanceDue DateLast DoneCommentsMMR Vaccines (1 of 1 - Standard series)1997DTaP/Tdap/Td Vaccines (1 - Tdap)2003Varicella Vaccines (1 of 2 - 13+ 2-dose series)2009Hepatitis B Vaccines (1 of 3 - 19+ 3-dose series)2015HPV Vaccines (1 - 3-dose SCDM series)3COVID-19 Vaccine ( - season)2025Influenza Vaccine (#1)2025HIB VaccinesAged OutNo longer eligible based on patient's age to complete this topicHepatitis A VaccinesAged OutNo longer eligible based on patient's age to complete this topic IPV VaccinesAged OutNo longer eligible based on patient's age to complete this topicMeningococcal B VaccineAged OutNo longer eligible based on patient's age to complete this topicMeningococcal VaccineAged OutNo longer eligible based on patient's age to complete this topicPneumococcal Vaccine: Pediatrics (0 to 5 Years) and At-Risk Patients (6 to 64 Years)Aged OutNo longer eligible based on patient's age to complete this topicRotavirus VaccinesAged OutNo longer eligible based on patient's age to complete this topic Procedures Procedure NamePriorityDate/TimeAssociated DiagnosisCommentsURINARY TRACT INFECTION (HTRX)Untsiex6709/14/2025 11:32 AM EDT POCT URINALYSIS SLCEMGKQItlcxsp63/23/2025 10:47 AM EDT 38 weeks gestation of ([facility]) Third trimester ([facility]) POCT URINALYSIS ULJXASDOPxhayoj92/16/2025 10:21 AM EDT 37 weeks gestation of ([facility]) CULTURE, GROUP B STREP WITH FWUAHRSXSJFZWQevutll18/09/2025 2:33 PM EDT Third trimester ([facility]) ALL CBC WITH AUTO EXFALdybwui21/24/2025 3:13 PM EDT ALL CBC WITH AUTO PCHJQcxxlvq11/11/2025 11:42 AM EDT POCT URINALYSIS LFOSQWDYFjzpaet36/11/2025 11:11 AM EDT Third trimester ([facility]) POCT URINALYSIS HIDSFWOWYgesrwh04/28/2025 10:57 AM EDT Third trimester ([facility]) GLU 1 H POST 50G LOAD ([facility])Cmtjarp6007/13/2025 2:30 PM EDT POCT URINALYSIS WMEBTLPQJcpihlf30/12/2025 11:44 AM EDT , unspecified gestational age ([facility]) Third trimester ([facility]) US OB 14+ WEEKS ANATOMY SCAN06/22/2025 10:27 AM EDT from Last 3 Months Results * (ABNORMAL) URINARY TRACT INFECTION (HTRX) (09/14/2025 11:32 AM EDT)Component ValueRef RangeTest MethodAnalysis TimePerformed AtPathologist Signature ACINETOBACTER JANZFFZZ120.961 - 24.689 ppm09/15/2025 7:31 AM EDTHealthTrackRx at LabPortACINETOBACTER BAUMANIINot Yseaulwe72.961 - 24.689 ppm09/15/2025 7:31 AM EDTHealthTrackRx at LabPortCITROBACTER DADQCIEG652.000 - 32.015 ppm 09/15/2025 7:31 AM EDTHealthTrackRx at LabPortCITROBACTER FREUNDIINot Detected 23.000 - 32.015 ppm09/15/2025 7:31 AM EDTHealthTrackRx at LabPortENTEROBACTER AEROGENES, YDQMGLQ260.000 - 32.290 ppm09/15/2025 7:31 AM EDTHealthTrackRx at LabPortENTEROBACTER AEROGENES, CLOACAENot Zmtelarv94.000 - 32.290 ppm 09/15/2025 7:31 AM EDTHealthTrackRx at LabPortENTEROCOCCUS FAECALIS, FAECIUM0 26.000 - 33.043 ppm09/15/2025 7:31 AM EDTHealthTrackRx at LabPortENTEROCOCCUS FAECALIS, FAECIUMNot Auspaonf57.000 - 33.043 ppm09/15/2025 7:31 AM EDT [facility] at LabPortESCHERICHIA COLI25.84(A)23.000 - 28.500 ppm09/15/2025 7:31 AM EDTHealthTrackRx at LabPortESCHERICHIA COLIDetected(A)23.000 - 28.500 ppm09/15/2025 7:31 AM EDTHealthTrackRx at LabPortKLEBSIELLA PNEUMONIAE, MBKEFWO942.000 - 31.865 ppm09/15/2025 7:31 AM EDTHealthTrackRx at LabPort KLEBSIELLA PNEUMONIAE, OXYTOCANot Unmtehjw32.000 - 31.865 ppm09/15/2025 7:31 AM EDTHealthTrackRx at LabPortMORGANELLA TLDMZRKV310.961 - 24.689 ppm 09/15/2025 7:31 AM EDTHealthTrackRx at LabPortMORGANELLA MORGANIINot Detected 19.961 - 24.689 ppm09/15/2025 7:31 AM EDTHealthTrackRx at LabPortPROTEUS MIRABILIS, XFEPFPXL434.000 - 28.500 ppm09/15/2025 7:31 AM EDTHealthTrackRx at LabPortPROTEUS MIRABILIS, VULGARISNot Msnzahfp35.000 - 28.500 ppm09/15/2025 7:31 AM EDTHealthTrackRx at LabPortPSEUDOMONAS ETAALQAJOR853.000 - 31.801 ppm 09/15/2025 7:31 AM EDTHealthTrackRx at LabPortPSEUDOMONAS AERUGINOSANot Fxcxffhf43.000 - 31.801 ppm09/15/2025 7:31 AM EDTHealthTrackRx at LabPort STAPHYLOCOCCUS UOUFAY805.000 - 31.595 ppm09/15/2025 7:31 AM EDTHealthTrackRx at LabPortSTAPHYLOCOCCUS AUREUSNot Puiektcx19.000 - 31.595 ppm09/15/2025 7:31 AM EDTHealthTrackRx at LabPortSTREPTOCOCCUS AGALACTIAE (GROUP B STREP)026.000 - 32.435 ppm09/15/2025 7:31 AM EDTHealthTrackRx at LabPortSTREPTOCOCCUS AGALACTIAE (GROUP B STREP)Not Vgeitogo94.000 - 32.435 ppm09/15/2025 7:31 AM EDTHealthTrackRx at LabPortCANDIDA ALBICANS, PARAPSILOSIS, BYGNMWPICK09.946(A) 23.000 - 30.347 ppm09/15/2025 7:31 AM EDTHealthTrackRx at LabPortCANDIDA ALBICANS, PARAPSILOSIS, TROPICALISDetected(A)23.000 - 30.347 ppm09/15/2025 7:31 AM EDTHealthTrackRx at LabPortCANDIDA VUGELYNL844.000 - 31.618 ppm 09/15/2025 7:31 AM EDTHealthTrackRx at LabPortCANDIDA GLABRATANot Detected 23.000 - 31.618 ppm09/15/2025 7:31 AM EDTHealthTrackRx at LabPortCANDIDA MPFOOU281.000 - 30.873 ppm09/15/2025 7:31 AM EDTHealthTrackRx at LabPort VANESA KRUSEINot Jdtdqbhm61.000 - 30.873 ppm09/15/2025 7:31 AM EDT [facility] at LabPortSERRATIA ISXWNSHZTQ436.000 - 31.581 ppm09/15/2025 7:31 AM EDTHealthTrackRx at LabPortSERRATIA MARCESCENSNot Cycqnrvu14.000 - 31.581 ppm09/15/2025 7:31 AM EDTHealthTrackRx at LabPortSTREPTOCOCCUS PYOGENES (GROUP A STREP)019.961 - 24.689 ppm09/15/2025 7:31 AM EDTHealthTrackRx at LabPort STREPTOCOCCUS PYOGENES (GROUP A STREP)Not Oxjdcqpf69.961 - 24.689 ppm 09/15/2025 7:31 AM EDTHealthTrackRx at LabPortSTAPHYLOCOCCUS EPIDERMIDIS, HAEMOLYTICUS, LUGDUNENSIS, SAPROPHYTICUS (UJXNP450.961 - 24.689 ppm09/15/2025 7:31 AM EDTHealthTrackRx at LabPortSTAPHYLOCOCCUS EPIDERMIDIS, HAEMOLYTICUS, LUGDUNENSIS, SAPROPHYTICUS (URINANot Qzrdgors66.961 - 24.689 ppm09/15/2025 7:31 AM EDTHealthTrackRx at LabPortSTAPHYLOCOCCUS EPIDERMIDIS, HAEMOLYTICUS, LUGDUNENSIS, SAPROPHYTICUS (HCTXR555.961 - 24.689 ppm09/15/2025 7:31 AM EDT [facility] at LabPortSTAPHYLOCOCCUS EPIDERMIDIS, HAEMOLYTICUS, LUGDUNENSIS, SAPROPHYTICUS (URINANot Abbeaznm38.961 - 24.689 ppm09/15/2025 7:31 AM EDT [facility] at LabPortTET B, TET M27.09(A)23.000 - 27.500 ppm09/15/2025 7:31 AM EDTHealthTrackRx at [facility] HospitalTET B, TET MDetected(A)23.000 - 27.500 ppm 09/15/2025 7:31 AM EDTHealthTrackRx at [facility]Valley HospitalSpecimen (Source)Anatomical Location / LateralityCollection Method / VolumeCollection TimeReceived Time Urine09/14/2025 11:32 AM EDT1 1:45 AM EDT Narrative Authorizing ProviderResult TypeResult StatusAmy Sol PAL[facility] BLOOD ORDERABLES Final ResultPerforming OrganizationAddressCity/State/ZIP CodePhone Number [facility] [address] [phone] * (ABNORMAL) POCT urinalysis dipstick manually resulted (09/14/2025 10:47 AM EDT) Only the most recent of5 resultswithin the time period is included. ComponentValueRef RangeTest MethodAnalysis TimePerformed AtPathologist Signature Color, UAAmberClarity, UAClearGlucose, UANegativeNegative - 2000(110) ++++ mg/dL Bilirubin, UANegativeNegative - 4(70) +++ mg/dLKetones, UANegativeNegative - 160(16) ++++ mg/dLSpec Grav, UA1.0201 - 1.03Blood, UANegativeNegative - 50 Roland/mcLpH, UA6.05 - 9Protein, UAPositiveNegative - 2000(20) ++++ mg/dL Urobilinogen, UA1.00.2 - 12 mg/dLLeukocytes, UA3+Negative - 500+++ Ethan/mcL Nitrite, UANegativeNegative - PositiveSpecimen (Source)Anatomical Location / LateralityCollection Method / VolumeCollection TimeReceived OkqnWqzhs07/23/2025 10:47 AM EDT Narrative Authorizing ProviderResult TypeResult StatusAngela Horton PAPOINT OF CARE TEST ENTER/EDIT ORDERABLESFinal Result * CULTURE, GROUP B STREP WITH SUSCEPTIBLITY (08/31/2025 2:33 PM EDT)Specimen (Source)Anatomical Location / LateralityCollection Method / VolumeCollection TimeReceived MpjbTmjr98/09/2025 2:33 PM EDT Narrative Authorizing ProviderResult TypeResult StatusBrenda Traore [facility] BLOOD ORDERABLESEdited Result - FinalPerforming OrganizationAddressCity/State/ZIP Code Phone Number EXTERNAL LAB * (ABNORMAL) ALL CBC WITH AUTO DIFF (08/16/2025 3:13 PM EDT) Only the most recent of2 resultswithin the time period is included. ComponentValueRef RangeTest MethodAnalysis TimePerformed AtPathologist Signature [facility] WBC6.64.0 - 11.0 10 3/uLTBHTBH RBC4.12(L)4.20 - 5.40 10 6/uLTBHTBH HGB11.8 (L)12.0 - 16.0 g/dLTBHTBH HCT35.5(L)36.0 - 48.0 %TBHTBH MCV86.281.0 - 99.0 fLTBH [facility] MCH28.626.7 - 34.0 pgTBHTBH MCHC33.229.9 - 35.2 g/dLTBHTBH RDW13.611.0 - 15.0 %TBHTBH MFQ799(L)150 - 450 10 3/uLTBHTBH MPV11.59.5 - 13.5 fLTBHNEUTROPHILS PERCENT AUTO69.843.0 - 75.0 %TBHLYMPHOCYTES PERCENT AUTO21.820.5 - 60.0 %TBH MONOCYTES PERCENT AUTO6.71.7 - 12.0 %TBHTBH EO %0.6(L)0.9 - 7.0 %TBHBASOPHILS PERCENT AUTO0.20.2 - 2.0 %TBHIMMATURE GRANULOCYTES PCT AUTO0.9(H)0.0 - 0.5 %TBH NEUTROPHILS ABSOLUTE AUTO4.61.4 - 6.5 10 3/uLTBHLYMPHOCYTES ABSOLUTE AUTO1.41.2 - 3.8 10 3/uLTBHMONOCYTES ABSOLUTE AUTO0.40.3 - 0.8 10 3/uLTBHTBH EO #0.00.0 - 0.7 10 3/uLTBHBASOPHILS ABSOLUTE AUTO0.00.0 - 0.1 10 3/uLTBHIMMATURE GRANULOCYTES ABS AUTO0.06(H)0.00 - 0.03 10 3/uLTBHSpecimen (Source)Anatomical Location / LateralityCollection Method / VolumeCollection TimeReceived Time 08/16/2025 3:13 PM EDT08/16/2025 3:14 PM EDT Narrative CLINISYNC - 08/16/2025 3:45 PM EDT Authorizing ProviderResult TypeResult StatusPranay Tellez DOCLINISYNCFinal Result Performing OrganizationAddressCity/State/ZIP CodePhone Number CLINISYNC [facility] * GLU 1 H POST 50G LOAD ([facility]) (07/13/2025 2:30 PM EDT)ComponentValueRef RangeTest MethodAnalysis TimePerformed AtPathologist SignatureGLU 1 H POST 50G [id number] - 139 mg/dLPROMEDICAComment: ?? PERFORMED AT [facility] [address],[place] [address] Specimen (Source)Anatomical Location / LateralityCollection Method / Volume Collection TimeReceived Time07/13/2025 2:30 PM EDT07/13/2025 5:29 PM EDT Narrative Authorizing ProviderResult TypeResult StatusAmy Sol PALAB BLOOD ORDERABLES Final ResultPerforming OrganizationAddressCity/State/ZIP CodePhone Number [facility] * US OB 14+ weeks anatomy scan (06/22/2025 10:27 AM EDT)Anatomical Region LateralityModalityBodyUltrasoundSpecimen (Source)Anatomical Location / LateralityCollection Method / VolumeCollection TimeReceived Time06/22/2025 10:27 AM EDT Narrative 2025 3:04 PM EDT THIS EXAM WAS PERFORMED AT [facility] NAME: ??VERO PIERCE : 1995 SEX: F Accession Number: [id number] ORDERING PHYSICIAN: PRANAY TELLEZ REFERRING PHYSICIAN: PRANAY TELLEZ Coding Procedures ? 65989: Ultrasound, uterus, real time with image documentation, and maternal evaluation ? plus detailed anatomic examination, transabdominal approach;single or first gestation Indication Screening for Anatomic Survey, Supervision of high risk -(short interval between pregnancies), Insufficient care, Grand multiparity History OB History ? 7. Para 5 ? [id number] Maternal Assessment Physical Exam ??Height 178 cm, 5 ft 10 in. Weight 58 kg, 127 lb. Initial weight 52 kg, 115 lb. BMI 18.22 kg/m???. Initial ? BMI 16.50 kg/m???. Weight gain 5 kg, 12 lb Method Transabdominal ultrasound examination. View: Suboptimal view: restricted by patient discomfort and position Beavers . Number of fetuses: 1 Dating LMP on: ?01/01/2025 GA by LMP ?24 w + 3 d GIRMA by LMP: ?10/08/2025 Previous Ultrasound on: ?03/09/2025 Type of prior assessment: ?CRL U/S measurement at prior assessment date ? 47.0 mm GA by previous U/S ? 26 w + 3 d GIRMA by previous Ultrasound: ?09/24/2025 Ultrasound examination on: ? 2025 GA by U/S based upon: ??AC, BPD, Femur, HC GA by U/S ?26 w + 2 d GIRMA by U/S: ?09/25/2025 Assigned: ?based on ultrasound (CRL), selected on 2025 Assigned GA ?26 w + 3 d Assigned GIRMA: ??09/24/2025 General Evaluation Cardiac activity Present. FHR 131 bpm. Presentation: cephalic Placenta: Placental site: posterior, away from cervical os Umbilical cord: Cord vessels: 3 vessel cord. Insertion site: normal insertion Amniotic fluid: Amount of AF: normal amount. MVP 6.0 cm Biometry Standard BPD ?64.3 mm 26w 0d 25% Hadlock OFD ?85.4 mm 27w 4d 83% Narayan HC ? 240.0 mm ?26w 0d 15% Hadlock Cerebellum tr ??31.3 mm 26w 6d 74% Hill AC ? 237.7 mm ?28w 1d 87% Hadlock Femur ??45.8 mm 25w 1d 8% Hadlock Humerus ?43.9 mm 26w 1d 35% Narayan HC / AC ?1.01 EFW ?979 g ?52% Hadlock EFW (lb) ? 2 lb EFW (oz) ? 3 oz EFW by: ?Hadlock ([id number]-[id number]-IG-FL) Extended Tibia ??40.0 mm 25w 2d 15% Narayan Shift Leader ? 7.5 mm CM 2.2 mm <1% Nicolaides Head / Face / Neck Cephalic index 0.75 ? 16% Nicolaides Nasal bone: ?present Extremities / Bony Struc FL / BPD ? 0.71 FL / HC ?0.19 FL / AC ?0.19 Other Structures FHR ?131 bpm Anatomy The following structures appear normal: Head/Neck: Cranium. Lateral ventricles. Choroid plexus. Midline falx. Cavum septi pellucidi. Cerebellum. Cisterna ? magna. Parenchyma. Vermis. ? Neck. Face: Lips. Profile. Nose. Nasal bone. Heart/Thorax: 4-chamber view. RVOT view. 3-vessel view. 3-gxipvg-jmvjxup view. Situs. Aortic arch view. Bicaval view. ? Ductal arch view. Interventricular septum. Cardiac position. Cardiac axis. Cardiac size. Cardiac rhythm. ? Right lung. Left lung. Abdomen: Abdom. wall. Cord insertion. Stomach. Kidneys. Bladder. Small bowel. Large bowel. Right renal artery. ? Left renal artery. Genitals. Spine: Cervical spine. Thoracic spine. Lumbar spine. Extremities/Skeleton: Right upper arm. Right forearm. Right hand. Left upper arm. Left forearm. Left hand. Right upper leg. ? Right lower leg. Right foot. Left upper leg. Left lower leg. Left foot. The following structures could not be adequately visualized: Face ?? Maxilla. Mandible. Orbits. Heart / Thorax LVOT view. Great vessels. ? Diaphragm. Spine ??Sacral spine. Maternal Structures Uterus Visualized Cervix Visualized ? Approach - Transabdominal Right Ovary ?Not visualized Left Ovary ? Not visualized Cul de Sac ? Visualized. No free fluid visualized Impression Single viable intrauterine consistent with 26w 3d with an GIRMA of 09/24/2025. Amniotic fluid MVP measures 6 cm. The placenta appears heterogeneous in the posterior aspect however the uteroplacental interface appears intact. There is no sonographic evidence of adherent placenta at this time. There are the appearance of multiple lakes.there is not significant hypervascularity seen Recommendations Please see M documentation from today. There is no sonographic evidence of adherent placenta at this time. The patient is scheduled in four to six week(s) to complete anatomic survey and re-evaluation of placenta. Subsequent follow up or other follow up as clinically determined by primary OB provider unless otherwise specified by MFM. Results forwarded to ordering provider so they can follow up with the patient as necessary. Procedure Note Radiology, Radiologist, - 06/22/2025 THIS EXAM WAS PERFORMED AT [facility] NAME: VERO PIERCE : 1995 SEX: F Accession Number: [id number] ORDERING PHYSICIAN: PRANAY TELLEZ REFERRING PHYSICIAN: PRANAY TELLEZ Coding Procedures 74776: Ultrasound, uterus, real time with image documentation, and maternal evaluation plus detailed anatomic examination, transabdominalapproach;single or first gestation Indication Screening for Anatomic Survey, Supervision of high risk -(short interval between pregnancies), Insufficient care, Grand multiparity History OB History 7. Para 5 [id number] Maternal Assessment Physical Exam Height 178 cm, 5 ft 10 in. Weight 58 kg, 127 lb. Initialweight 52 kg, 115 lb. BMI 18.22 kg/m???. Initial BMI 16.50 kg/m???. Weight gain 5 kg, 12 lb Method Transabdominal ultrasound examination. View: Suboptimal view: restrictedby patient discomfort and position Beavers . Number of fetuses: 1 Dating LMP on: 01/01/2025 GA by LMP 24 [...] 3 d Assigned GIRMA: 09/24/2025 General Evaluation Cardiac activity Present. FHR 131 bpm. Presentation: cephalic Placenta: Placental site: posterior, away from cervical os Umbilical cord: Cord vessels: 3 vessel cord. Insertion site: normalinsertion Amniotic fluid: Amount of AF: normal amount. MVP 6.0 cm Biometry Standard BPD 64.3 mm 26w 0d 25% [...] EFW (oz) 3 oz EFW by: Hadlock (MYT-MZ-SM-FL) Extended Tibia 40.0 mm 25w 2d 15% Narayan Shift Leader 7.5 mm CM 2.2 mm <1% Nicolaides Head / Face / Neck Cephalic index 0.75 16% Nicolaides Nasal bone: present Extremities / Bony Struc FL / BPD 0.71 FL / HC 0.19 FL / AC 0.19 Other Structures FHR 131 bpm Anatomy The following structures appear normal: Head/Neck: Cranium. Lateral ventricles. Choroid plexus. Midline falx.Cavum septi pellucidi. Cerebellum. Cisterna magna. Parenchyma. Vermis. Neck. Face: Lips. Profile. Nose. Nasal bone. Heart/Thorax: 4-chamber view. RVOT view. 3-vessel view. 2-bcadno-gbsndwgjheo. Situs. Aortic arch view. Bicaval view. Ductal [...] vessels. Diaphragm. Spine Sacral spine. Maternal Structures Uterus Visualized Cervix Visualized Approach - Transabdominal Right Ovary Not visualized Left Ovary Not visualized Cul de Sac Visualized. No free fluid visualized Impression Single viable intrauterine consistent with 26w 3d with an GIRMA of 09/24/2025. Amniotic fluid MVP measures 6 cm. The placenta appears heterogeneous in the posterior aspect however the uteroplacental interface appears intact. There is no sonographic evidence of adherent placenta at this time. There are theappearance of multiple lakes. there is not significant hypervascularity seen Recommendations Please see MFM documentation from today. There is no sonographic evidenceof adherent placenta at this time. The patient is scheduled in four to six week(s) to complete anatomicsurvey and re-evaluation of placenta. Subsequent follow up or other follow up as clinically determined byprimary OB provider unless otherwise specified by M. Results forwarded to ordering provider so they can follow up with thepatient as necessary. Authorizing ProviderResult TypeResult StatusCorey Rosalinda KERR OB US PROCEDURES Edited Result - Final from Last 3 Months Insurance Care Teams Team MemberRelationshipSpecialtyStart DateEnd Date Eleanor Andres MD [address] [facility] [address] [place] [address] PCP - [facility]02/22/24
--- OUTSIDE RECORDS SUMMARY | 2025-09-20 16:58 | XMS_ITS | Encounter Summary ---
Author Organization [employer] tem Address [id number] [address] [place] [address] Care Team Providers Care Cover Stripper Name Role Phone No Pcp, No Pcp Primary Care Provider Unavailabl e Encounter Details DateTypeDepartmentCare Team (Latest Contact Info)Naxrwbzekvg95/20/2025Results Follow-Up Maria Fernanda Cheng [facility] - Medical Oncology [address] [place] [address] Mitul Vila MD [address] [place] [address] [address] [place] [address] CBC with auto diff, Iron and TIBC, Ferritin Social History Tobacco UseTypesPacks/DayYears UsedDateSmoking Tobacco: NeverSmokeless Tobacco: NeverAlcohol UseStandard Drinks/WeekCommentsNo0 (1 standard drink = 0.6 oz pure alcohol)[facility] UtilitiesAnswerDate RecordedIn the past 12 months has the [employer], gas, oil, or water [email or web address] threatened to shut off services in your home?No 07/11/2024Overall Financial Resource Strain (CARDIA)AnswerDate RecordedHow hard is it for you to pay for the very basics like food, housing, medical care, and heating?Not hard at all05/09/2024HQ-2AnswerDate RecordedTotal Pfyzw102 PRAPARE - TransportationAnswerDate RecordedIn the past 12 months, has lack of transportation kept you from medical appointments or from getting medications?No 07/11/2024In the past 12 months, has lack of transportation kept you from meetings, work, or from getting things needed for daily living?No07/11/2024 [place] Depression ScaleAnswerDate RecordedEdinburgh Depression Scale Savpy59312/31/2021The thought of harming myself has occurred to me.Never10/30/2022Housing InstabilityAnswerDate RecordedAre you worried or concerned that in the next two months you may not have stable housing that you own, rent or stay in as a part of a household?No07/11/2024hildcareAnswerDate RecordedDo problems getting director of early childhood education make it difficult for you to work or study?No04/30/2022EmploymentAnswerDate RkqiauddFvqcztmeflWtwvsyl68/31/2019Hunger ScreeningAnswerDate RecordedWithin the past 12 months we worried whether our food would run out before we got money to buy more.Never True2025Within the past 12 months the food we bought just didn't last and we didn't have money to get more.Never True2025Purpose - LifeAnswerDate RecordedPurpose and direction in bmmjMusynsj25/04/2021Estimated Date of DeliveryCommentsYes 5Based on UltrasoundSex and Gender InformationValueDate RecordedSex Assigned at LbnxdQnehmh28/18/2022 10:30 AM ESTLegal VwdZlhobr91/06/2015 11:51 AM EDTGender UsinxfroZjsqin26/18/2022 10:30 AM ESTSexual OrientationStraight 10/10/2022 10:30 AM ESTdocumented as of this encounter Plan of Treatment Not on file documented as of this encounter Visit Diagnoses Not on filedocumented in this encounter Additional Health Concerns AssessmentNoted TimePHQ-9 Depression Total Score: 7:01 PM EDT documented as of this encounter Care Teams Team MemberRelationshipSpecialtyStart DateEnd Date No Pcp, [place] [address] PCP - GeneralFamily Medicine02/05/25documented as of this encounter
--- OUTSIDE RECORDS SUMMARY | 2025-09-20 16:58 | XMS_ITS | Clinical Summary ---
Author Organization [facility] Address [address] [facility] [place] [address] Care Team Providers Care Mva Operator Name Role Phone Unavailable Primary Care Provider Unavailabl e Source Comments The following information is NOT included in Care Everywhere downloads:Psychiatric notes, ECG results, Cardiac Rehab notes, Pulmonary Function notes, data from SmartForms (includes but not limited toPregnancy data,audiograms, eye exams, pre-surgical evaluation notes, well-child exam data).[facility] Social History Tobacco UseTypesPacks/DayYears UsedDateSmoking Tobacco: Never Assessed CommentsUnknownSex and Gender InformationValueDate RecordedSex Assigned at Not on fileLegal UskHruedm10/16/2023 2:42 PM EDTGender IdentityNot on fileSexual OrientationNot on file Plan of Treatment Health MaintenanceDue DateLast DoneCommentsHepatitis C Qocxbsmi96/30/2014Tdap Fznskrj1206/21/2014Hepatitis A (HAV) Vaccine (optional start 19+ years)2015 Hepatitis B (HBV) Vaccine (1 of 3 - 19+ 3-dose series)2015Tetanus (Td or Tdap) Rzwmipd9306/21/2015Pap Smear2017HPV Vaccine (optional start 27-45 years)3COVID-19 Vaccine ( - 2024- season)2025Influenza Vaccine (#1)2025Shingles (RZV) Vaccine (1 of 2)2046HIV TestCompleted 12/02/2023MammographyDiscontinuedPneumococcal Vaccine(s)Aged OutNo longer eligible based on patient's age to complete this topic Insurance * Guarantor: Marisa Valentin TypeRelation to PatientDate of BirthPhone Billing AddressPromedica Life EbgzxcAyuv1995 [address] [facility]
--- OUTSIDE RECORDS SUMMARY | 2025-09-20 16:59 | XMS_ITS | Encounter Summary ---
Author Organization [facility] Address [address] [place] [address] Care Team Providers Care Mortising Machine Operator Name Role Phone Eleanor Andres MD Unavailable Encounter Details DateTypeDepartmentCare Team (Latest Contact Info)Cmrgtoiyrby89/22/2025Travel Social History Tobacco UseTypesPacks/DayYears UsedDateSmoking Tobacco: Never AssessedPHQ-2 AnswerDate RecordedPatient Health Questionnaire-2 Wjoko133 Estimated Date of RyrxtkbkSvrtrxzkIdp43/02/2025Based on UltrasoundSex and Gender InformationValueDate RecordedSex Assigned at BirthNot on fileLegal SexFemale 08/17/2024 11:40 AM EDTGender IdentityNot on fileSexual OrientationNot on file documented as of this encounter Plan of Treatment DateTypeDepartmentCare Team (Latest Contact Info)Zbduihanmnw30/30/2025 9:30 AM EDTRoutine [facility] [address] [place] [address] Angela Horton PA [address] [place] [address] documented as of this encounter Visit Diagnoses Not on filedocumented in this encounter Care Teams Team MemberRelationshipSpecialtyStart DateEnd Date Eleanor Andres MD [address] [facility] [address] [place] [address] PCP - [facility]02/22/24documented as of this encounter
--- OUTSIDE RECORDS SUMMARY | 2025-09-20 16:59 | XMS_ITS | Encounter Summary ---
Author Organization [facility] Address [address] [place] [address] Care Team Providers Care Medical Illustrator Name Role Phone Eleanor Andres MD Unavailable Encounter Details DateTypeDepartmentCare Team (Latest Contact Info)Zurohrgvztw79/16/2025Bamboo flowsheet NOMChiara LUCIANO [address] [place] [address] Peter Tellez DO [address] [facility] [address] [address] Nando Mccray, [facility] Social History Tobacco UseTypesPacks/DayYears UsedDateSmoking Tobacco: Never Assessed Estimated Date of LackpjhcIczllrsuIyw94/02/2025Based on UltrasoundSex and Gender InformationValueDate RecordedSex Assigned at BirthNot on fileLegal SexFemale 08/17/2024 11:40 AM EDTGender IdentityNot on fileSexual OrientationNot on file documented as of this encounter Plan of Treatment DateTypeDepartmentCare Team (Latest Contact Info)Hnufgxqfwvr53/30/2025 9:30 AM EDTRoutine [facility] Mahendra LUCIANO [address] [place] [address] Angela Horton PA [address] [facility] [address] [address] documented as of this encounter Visit Diagnoses Not on filedocumented in this encounter Care Teams Team MemberRelationshipSpecialtyStart DateEnd Date Eleanor Andres MD [address] [place] [address] PCP - [facility]4/12/16documented as of this encounter
--- OUTSIDE RECORDS SUMMARY | 2025-09-20 16:59 | XMS_ITS | Clinical Summary ---
Author Organization [facility] Address [address] [place] [address] Care Team Providers Care Major Assembler Name Role Phone None, Provided MD Primary Care Provider Unavaila ble Allergies Active AllergyReactionsCriticalityNoted DateCommentsAmoxicillinItchingMedium 08/25/2022 05/11/2024: tolerated ceftriaxone without allergic reaction Medications MedicationSigDispense QuantityRefillsLast FilledStart DateEnd DateStatus acetaminophen (Tylenol) 500 mg tablet Take 1,000 mg by mouth every 6 (six) hours if needed.Active DOCOSAHEXAENOIC ACID ORAL Take 1 capsule by mouth in the morning.11/18/2023ctive Active Problems ProblemNoted DateDiagnosed DateHydronephrosis of right hqyesk4105/09/2024Low platelet count05/09/2024Nausea & alvaxvca14/17/0207Huwxob73/17/2024Normal labor 05/07/2024Late care12/24/2023 Overview (05/20/2024): 20 weeks at first visit Rubella non-immune status, occqxnbxoh11/11/2024Susceptible to varicella (non- immune), currently tcfkmyat21/11/2024History of riakvuxaqdn57/28/2023 Overview (05/20/2024): January 2023 Iron deficiency anemia due to chronic blood loss06/01/2023HSIL (high grade squamous intraepithelial lesion) on Pap smear of wlinnl7104/30/2022 Overview (05/20/2024): NEEDS COLPO 11/12/2021 date of PAP. Had appt. For colpo but no showed Severe rduexe0104/29/2022 Immunizations ImmunizationAdministration DatesNext DueDTaP, Ixtsbrtorci71/04/1445AML9504/26/2002 MMR04/26/2002 Social History Tobacco UseTypesPacks/DayYears UsedDateSmoking Tobacco: Never AssessedUT Safety & EnvironmentAnswerDate RecordedFear of Current or Ex-PartnerNot on file 05/19/2024Emotionally AbusedNot on file05/19/2024hysically AbusedNot on file 05/19/2024Sexually AbusedNot on file05/19/2024hysically or Sexually AbusedNot on file05/19/2024CommentsUnknownSex and Gender InformationValueDate RecordedSex Assigned at BirthNot on fileLegal XlzHnnytr65/29/2022 9:47 PM EDT Gender IdentityNot on fileSexual OrientationNot on file Plan of Treatment Health MaintenanceDue DateLast DoneCommentsIPV Vaccines (2 of 3 - 4-dose series) Depression Ujvwgbljv83/30/2008Varicella Vaccines (1 of 2 - 13+ 2-dose series)2009Pap Smear2017Adult Vryofsy8106/21/2018HPV Vaccines (1 - 3-dose SCDM series)2023Influenza Vaccine (#1)2025 Zoster Vaccines (1 of 2)2046HIB VaccinesAged OutNo longer eligible based on patient's age to complete this topicMeningococcal B VaccineAged OutNo longer eligible based on patient's age to complete this topicMeningococcal VaccineAged OutNo longer eligible based on patient's age to complete this topicPneumococcal Vaccine: Pediatrics (0 to 5 Years) and At-Risk Patients (6 to 64 Years)Aged Out No longer eligible based on patient's age to complete this topicRotavirus VaccinesAged OutNo longer eligible based on patient's age to complete this topic Insurance Care Teams Team MemberRelationshipSpecialtyStart DateEnd Date None, Provided, PCP - General05/20/24
--- OUTSIDE RECORDS SUMMARY | 2025-09-20 16:59 | XMS_ITS | Encounter Summary ---
Author Organization [facility] Address [address] [place] [address] Care Team Providers Care Electro Mechanical Technician Name Role Phone Eleanor Andres MD Unavailable Encounter Details DateTypeDepartmentCare Team (Latest Contact Info)Kpmwjwyhtdy25/23/2025Patient Outreach [facility] [address] [place] [phone] Angela Harley LPN [address] [place] [address] Social History Tobacco UseTypesPacks/DayYears UsedDateSmoking Tobacco: Never AssessedPHQ-2 AnswerDate RecordedPatient Health Questionnaire-2 Ageph183 Estimated Date of QcdftkhkBdozfxodZtp25/02/2025Based on UltrasoundSex and Gender InformationValueDate RecordedSex Assigned at BirthNot on fileLegal SexFemale 08/17/2024 11:40 AM EDTGender IdentityNot on fileSexual OrientationNot on file documented as of this encounter Functional Status * Over the past 2 weeks, how often have you been bothered by any of the following problems?QuestionAnswerDate of AssessmentAuthorLittle interest or pleasure in doing thingsNot at all09/14/2025 9:49 AM Angela Garcia LPN Feeling down, depressed, or hopelessNot at all09/14/2025 9:49 AM Angela Garcia LPNPatient Health Questionnaire-2 Wcmkj805 9:49 AM Angela Garcia LPN documented as of this encounter Progress Notes * Angela Harley LPN - 09/14/2025 9:49 AM EDT Initial Outreach. Call to pt. Pt reports she feels baby moving frequently. Appetite and sleep are adequate although sleep is interrupted. Bowels are regular. Pt denies depression or difficulty copingat this time. Pt has WIC. Pt denies questions, concerns or needs today. Pt agrees to monthly outreach. documented in this encounter Plan of Treatment DateTypeDepartmentCare Team (Latest Contact Info)Lvzlgxtujdv00/30/2025 9:30 AM EDTRoutine [facility] [address] [place] [address] Angela Horton, PA [address] [facility] [address] [place] [address] documented as of this encounter Visit Diagnoses Not on filedocumented in this encounter Care Teams Team MemberRelationshipSpecialtyStart DateEnd Date Eleanor Andres MD [address] [facility] [address] [place] [address] PCP - [facility]02/22/24documented as of this encounter
--- OUTSIDE RECORDS SUMMARY | 2025-09-20 16:59 | XMS_ITS | Encounter Summary ---
Author Organization [facility] Address [address] [place] [address] Care Team Providers Care Regulatory Compliance Manager Name Role Phone Eleanor Andres MD Unavailable Encounter Details DateTypeDepartmentCare Team (Latest Contact Info)Aqrpgwacgjl58/24/2025bstract [facility] [address] [place] [phone] Angela Harley LPN [address] [place] [address] Social History Tobacco UseTypesPacks/DayYears UsedDateSmoking Tobacco: Never AssessedPHQ-2 AnswerDate RecordedPatient Health Questionnaire-2 Vnxgm121 Estimated Date of VpfvczslRfinjzkoPez79/02/2025Based on UltrasoundSex and Gender InformationValueDate RecordedSex Assigned at BirthNot on fileLegal SexFemale 08/17/2024 11:40 AM EDTGender IdentityNot on fileSexual OrientationNot on file documented as of this encounter Plan of Treatment DateTypeDepartmentCare Team (Latest Contact Info)Hucyvgdfnet49/30/2025 9:30 AM EDTRoutine [facility] [address] [facility] [place] [address] Angela Horton PA [address] [facility] [place] [address] documented as of this encounter Visit Diagnoses Not on filedocumented in this encounter Care Teams Team MemberRelationshipSpecialtyStart DateEnd Date Eleanor Andres MD [address] [facility] [address] [place] [address] PCP - [facility]/12/16documented as of this encounter
--- OUTSIDE RECORDS SUMMARY | 2025-09-20 16:59 | XMS_ITS | Encounter Summary ---
Author Organization [facility] [employer] [facility] tem Address [id number] [address] [place] [address] Care Team Providers Care Exhaust And Muffler Fitter Name Role Phone No Pcp, No Pcp Primary Care Provider Unavailabl e Encounter Details DateTypeDepartmentCare Team (Latest Contact Info)Benbarrksmf13/20/2025Telephone Maternal- Medicine at [facility] [address] [place] [phone] Angela Stanley LPN Social History Tobacco UseTypesPacks/DayYears UsedDateSmoking Tobacco: NeverSmokeless Tobacco: NeverAlcohol UseStandard Drinks/WeekCommentsNo0 (1 standard drink = 0.6 oz pure alcohol)[facility] UtilitiesAnswerDate RecordedIn the past 12 months has the electric, gas, oil, or water company threatened to shut off services in your home?No 07/11/2024Overall Financial Resource Strain (CARDIA)AnswerDate RecordedHow hard is it for you to pay for the very basics like food, housing, medical care, and heating?Not hard at all05/09/2024HQ-2AnswerDate RecordedTotal Pkqul703 PRAPARE - TransportationAnswerDate RecordedIn the past 12 months, has lack of transportation kept you from medical appointments or from getting medications?No 07/11/2024In the past 12 months, has lack of transportation kept you from meetings, work, or from getting things needed for daily living?No07/11/2024 [place] Depression ScaleAnswerDate RecordedEdinburgh Depression Scale Yhsgv83312/31/2021The thought of harming myself has occurred to me.Never10/30/2022Housing InstabilityAnswerDate RecordedAre you worried or concerned that in the next two months you may not have stable housing that you own, rent or stay in as a part of a household?No4ChildcareAnswerDate RecordedDo problems getting child neurologist make it difficult for you to work or study?No04/30/2022EmploymentAnswerDate FlmzfnxsAacahkzjvnSwzgtuw11/31/2019Hunger ScreeningAnswerDate RecordedWithin the past 12 months we worried whether our food would run out before we got money to buy more.Never True2025Within the past 12 months the food we bought just didn't last and we didn't have money to get more.Never True2025Purpose - LifeAnswerDate RecordedPurpose and direction in bbjsPbyijcj00/04/2021Estimated Date of DeliveryCommentsYes 5Based on UltrasoundSex and Gender InformationValueDate RecordedSex Assigned at GgqbeRwuhgu32/18/2022 10:30 AM ESTLegal JkpKvhrds48/06/2015 11:51 AM EDTGender OaomaqhvXomkez28/18/2022 10:30 AM ESTSexual OrientationStraight 10/10/2022 10:30 AM ESTdocumented as of this encounter Miscellaneous Notes * Telephone Encounter - Angela Stanley LPN - 09/11/2025 11:[address] Magaña request, a voicemail was left on Dr Tellez's nurse line to ensure this patient's platelets and BP are checked this week along with a visit. My direct number was left for any questions. documented in this encounter Plan of Treatment Not on file documented as of this encounter Visit Diagnoses Not on filedocumented in this encounter Additional Health Concerns AssessmentNoted TimePHQ-9 Depression Total Score: 7:01 PM EDT documented as of this encounter Care Teams Team MemberRelationshipSpecialtyStart DateEnd Date No [place]cp, [place] [address] PCP - GeneralFamsly Medicine02/05/25documented as of this encounter
--- OUTSIDE RECORDS SUMMARY | 2025-09-20 16:59 | XMS_ITS | Encounter Summary ---
Author Organization [facility] Address [address] [place] [address] Care Team Providers Care Boom Operator Name Role Phone Eleanor Andres MD Unavailable Encounter Details DateTypeDepartmentCare Team (Latest Contact Info)Oodrvggtioa53/23/2025External Result Encounter [facility] External Department Unsolicited Angela Horton, VINCENT [address] [place] [address] [place] [address] Social History Tobacco UseTypesPacks/DayYears UsedDateSmoking Tobacco: Never AssessedPHQ-2 AnswerDate RecordedPatient Health Questionnaire-2 Lqwrd760 Estimated Date of CqxmvnqrNdmadakzPin52/02/2025Based on UltrasoundSex and Gender InformationValueDate RecordedSex Assigned [...] 9:49 AM Angela Garcia LPNPatient Health Questionnaire-2 Pvfww720 9:49 AM Angela Garcia LPN documented as of this encounter Plan of Treatment DateTypeDepartmentCare Team (Latest Contact Info)Rnlvejbgnwz09/30/2025 9:30 AM EDTRoutine [facility] [address] [place] [address] Angela Horton PA [address] [facility] [facility] [place] [address] documented as of this encounter Procedures Procedure NamePriorityDate/TimeAssociated DiagnosisCommentsURINARY TRACT INFECTION (HTRX)Pofxrcb8709/14/2025 11:32 AM EDT documented in this encounter Results * (ABNORMAL) URINARY TRACT INFECTION (HTRX) (09/14/2025 11:32 AM EDT)Component ValueRef RangeTest MethodAnalysis TimePerformed AtPathologist Signature ACINETOBACTER AYYXSEUK050.961 - 24.689 ppm09/15/2025 7:31 AM EDTHealthTrackRx at LabPortACINETOBACTER BAUMANIINot Jsmxmmqc08.961 - 24.689 ppm09/15/2025 7:31 AM EDTHealthTrackRx at LabPortCITROBACTER KAKWZTTM387.000 - 32.015 ppm 09/15/2025 7:31 AM EDTHealthTrackRx at LabPortCITROBACTER FREUNDIINot Detected 23.000 - 32.015 ppm09/15/2025 7:31 AM EDTHealthTrackRx at LabPortENTEROBACTER AEROGENES, RWVMZNQ406.000 - 32.290 ppm09/15/2025 7:31 AM EDTHealthTrackRx at LabPortENTEROBACTER AEROGENES, CLOACAENot Eqknzjnp29.000 - 32.290 ppm 09/15/2025 7:31 AM EDTHealthTrackRx at LabPortENTEROCOCCUS FAECALIS, FAECIUM0 26.000 - 33.043 ppm09/15/2025 7:31 AM EDTHealthTrackRx at LabPortENTEROCOCCUS FAECALIS, FAECIUMNot Bmezrksf31.000 - 33.043 ppm09/15/2025 7:31 AM EDT [facility] at LabPortESCHERICHIA COLI25.84(A)23.000 - 28.500 ppm09/15/2025 7:31 AM EDTHealthTrackRx at LabPortESCHERICHIA COLIDetected(A)23.000 - 28.500 ppm09/15/2025 7:31 AM EDTHealthTrackRx at LabPortKLEBSIELLA PNEUMONIAE, XWMNCVA191.000 - 31.865 ppm09/15/2025 7:31 AM EDTHealthTrackRx at LabPort KLEBSIELLA PNEUMONIAE, OXYTOCANot Djikzveh30.000 - 31.865 ppm09/15/2025 7:31 AM EDTHealthTrackRx at LabPortMORGANELLA UAIIDYGU042.961 - 24.689 ppm 09/15/2025 7:31 AM EDTHealthTrackRx at LabPortMORGANELLA MORGANIINot Detected 19.961 - 24.689 ppm09/15/2025 7:31 AM EDTHealthTrackRx at LabPortPROTEUS MIRABILIS, HQSVSINW940.000 - 28.500 ppm09/15/2025 7:31 AM EDTHealthTrackRx at LabPortPROTEUS MIRABILIS, VULGARISNot Pbylwbad87.000 - 28.500 ppm09/15/2025 7:31 AM EDTHealthTrackRx at LabPortPSEUDOMONAS THYOXUHAEZ543.000 - 31.801 ppm 09/15/2025 7:31 AM EDTHealthTrackRx at LabPortPSEUDOMONAS AERUGINOSANot Cwkrevmz87.000 - 31.801 ppm09/15/2025 7:31 AM EDTHealthTrackRx at LabPort STAPHYLOCOCCUS HDOMFN839.000 - 31.595 ppm09/15/2025 7:31 AM EDTHealthTrackRx at LabPortSTAPHYLOCOCCUS AUREUSNot Ngigvzes24.000 - 31.595 ppm09/15/2025 7:31 AM EDTHealthTrackRx at LabPortSTREPTOCOCCUS AGALACTIAE (GROUP B STREP)026.000 - 32.435 ppm09/15/2025 7:31 AM EDTHealthTrackRx at LabPortSTREPTOCOCCUS AGALACTIAE (GROUP B STREP)Not Tbpecrgs89.000 - 32.435 ppm09/15/2025 7:31 AM EDTHealthTrackRx at LabPortCANDIDA ALBICANS, PARAPSILOSIS, ZVDQCYMIYQ92.946(A) 23.000 - 30.347 ppm09/15/2025 7:31 AM EDTHealthTrackRx at LabPortCANDIDA ALBICANS, PARAPSILOSIS, TROPICALISDetected(A)23.000 - 30.347 ppm09/15/2025 7:31 AM EDTHealthTrackRx at LabPortCANDIDA AAJHNATU942.000 - 31.618 ppm 09/15/2025 7:31 AM EDTHealthTrackRx at LabPortCANDIDA GLABRATANot Detected 23.000 - 31.618 ppm09/15/2025 7:31 AM EDTHealthTrackRx at LabPortCANDIDA WHJDTG838.000 - 30.873 ppm09/15/2025 7:31 AM EDTHealthTrackRx at LabPort VANESA KRUSEINot Dzrgitys84.000 - 30.873 ppm09/15/2025 7:31 AM EDT [facility] at LabPortSERRATIA JBCINGWVAI197.000 - 31.581 ppm09/15/2025 7:31 AM EDTHealthTrackRx at LabPortSERRATIA MARCESCENSNot Wlqrpgxz92.000 - 31.581 ppm09/15/2025 7:31 AM EDTHealthTrackRx at LabPortSTREPTOCOCCUS PYOGENES (GROUP A STREP)019.961 - 24.689 ppm09/15/2025 7:31 AM EDTHealthTrackRx at LabPort STREPTOCOCCUS PYOGENES (GROUP A STREP)Not Xqlndugl70.961 - 24.689 ppm 09/15/2025 7:31 AM EDTHealthTrackRx at LabPortSTAPHYLOCOCCUS EPIDERMIDIS, HAEMOLYTICUS, LUGDUNENSIS, SAPROPHYTICUS (KEXZP510.961 - 24.689 ppm09/15/2025 7:31 AM EDTHealthTrackRx at LabPortSTAPHYLOCOCCUS EPIDERMIDIS, HAEMOLYTICUS, LUGDUNENSIS, SAPROPHYTICUS (URINANot Utjctnlf90.961 - 24.689 ppm09/15/2025 7:31 AM EDTHealthTrackRx at LabPortSTAPHYLOCOCCUS EPIDERMIDIS, HAEMOLYTICUS, LUGDUNENSIS, SAPROPHYTICUS (UUOYV337.961 - 24.689 ppm09/15/2025 7:31 AM EDT [facility] HospitalSTAPHYLOCOCCUS EPIDERMIDIS, HAEMOLYTICUS, LUGDUNENSIS, SAPROPHYTICUS (URINANot Kvvmskvu85.961 - 24.689 ppm09/15/2025 7:31 AM EDT [facility] HospitalTET B, TET M27.09(A)23.000 - 27.500 ppm09/15/2025 7:[address] [facility] HospitalTET B, TET MDetected(A)23.000 - 27.500 ppm 09/15/2025 7:[address] Anthony HospitalSpecimen (Source)Anatomical Location / LateralityCollection Method / VolumeCollection TimeReceived Time Urine09/14/2025 11:32 AM EDT1 1:45 AM EDT Narrative Authorizing ProviderResult TypeResult StatusAmy [facility] BLOOD ORDERABLES Final ResultPerforming OrganizationAddressCity/State/ZIP CodePhone Number [facility] LabBlo[facility] [address] [phone] documented in this encounter Visit Diagnoses Not on filedocumented in this encounter Care Teams Team MemberRelationshipSpecialtyStart DateEnd Date Eleanor Andres MD [address] [facility] [address] [place] [address] PCP - [facility]02/22/24documented as of this encounter
--- OUTSIDE RECORDS SUMMARY | 2025-09-20 16:59 | XMS_ITS | Encounter Summary ---
Author Organization [facility] Address [address] [place] [address] Care Team Providers Care Field Staff Name Role Phone Eleanor Andres MD Unavailable Encounter Details DateTypeDepartmentCare Team (Latest Contact Info)Evahsoyscec02/24/2025Telephone [facility] LUCIANO [address] [place] [address] Osiris Urbina MA Social History Tobacco UseTypesPacks/DayYears UsedDateSmoking Tobacco: Never AssessedPHQ-2 AnswerDate RecordedPatient Health Questionnaire-2 Uznns597 Estimated Date of WhdqiwkgSylhyhxqDnl29/02/2025Based on UltrasoundSex and Gender InformationValueDate RecordedSex Assigned at BirthNot on fileLegal SexFemale 08/17/2024 11:40 AM EDTGender IdentityNot on fileSexual OrientationNot on file documented as of this encounter Miscellaneous Notes * Telephone Encounter - Osiris Urbina MA - 09/15/2025 11:48 AM EDT Attempted to call pt x2 nut phone rang busy and disconnected Medications sent to pharmacy documented in this encounter Plan of Treatment DateTypeDepartmentCare Team (Latest Contact Info)Sdrogappksu44/30/2025 9:30 AM EDTRoutine [facility]dra LUCIANO [address] [facility] [place] [address] Angela Horton PA [address] [place] [address] documented as of this encounter Visit Diagnoses Diagnosis BV (bacterial vaginosis) Unspecified vaginitis and vulvovaginitis Yeast infection documented in this encounter Care Teams Team MemberRelationshipSpecialtyStart DateEnd Date Eleanor Andres MD [address] [address] PCP - [facility]02/22/24documented as of this encounter
--- OUTSIDE RECORDS SUMMARY | 2025-09-20 16:59 | XMS_ITS | Encounter Summary ---
Author Organization [facility] Address [address] [place] [address] Care Team Providers Care Consulting Services Manager Name Role Phone Eleanor Andres MD Unavailable Encounter Details DateTypeDepartmentCare Team (Latest Contact Info)Khecmtviiyj28/15/2025Travel Social History Tobacco UseTypesPacks/DayYears UsedDateSmoking Tobacco: Never Assessed Estimated Date of SlpnpluxCybedeitTwd83/02/2025Based on UltrasoundSex and Gender InformationValueDate RecordedSex Assigned at BirthNot on fileLegal SexFemale 08/17/2024 11:40 AM EDTGender IdentityNot on fileSexual OrientationNot on file documented as of this encounter Plan of Treatment DateTypeDepartmentCare Team (Latest Contact Info)Bttbpkliefv44/30/2025 9:30 AM EDTRoutine [facility] Ma[facility]dra LUCIANO [address] [address] Angela Horton PA [address] [place], [facility]11 documented as of this encounter Visit Diagnoses Not on filedocumented in this encounter Care Teams Team MemberRelationshipSpecialtyStart DateEnd Date Eleanor Andres MD [address] [facility] [address] [place] [address] PCP - [facility]02/22/24documented as of this encounter
--- OUTSIDE RECORDS SUMMARY | 2025-09-20 16:59 | XMS_ITS | Encounter Summary ---
Author Organization [facility] Address [address] [place] [address] [place] [address] Care Team Providers Care Punch Molder Name Role Phone Eleanor Andres MD Unavailable Encounter Details DateTypeDepartmentCare Team (Latest Contact Info)Dimdttmskdq03/24/2025bstract ESTHER LUCIANO [address] [place] [address] [place] [address] Osiris Urbina MA Social History Tobacco UseTypesPacks/DayYears UsedDateSmoking Tobacco: Never AssessedPHQ-2 AnswerDate RecordedPatient Health Questionnaire-2 Cffar775 Estimated Date of AyqvetswWzvrbtxgXai52/02/2025Based on UltrasoundSex and Gender InformationValueDate RecordedSex Assigned at BirthNot on fileLegal SexFemale 08/17/2024 11:40 AM EDTGender IdentityNot on fileSexual OrientationNot on file documented as of this encounter Plan of Treatment DateTypeDepartmentCare Team (Latest Contact Info)Ovazbawqhkf96/30/2025 9:30 AM EDTRoutine NOMChiara LUCIANO [address] [place] [address] [place] [address] Angela Horton PA [address] [place] [address] documented as of this encounter Visit Diagnoses Not on filedocumented in this encounter Care Teams Team MemberRelationshipSpecialtyStart DateEnd Date Eleanor Andres MD [address] [place] [address] [place] [address] PCP - ESTHER Bajwa [facility]02/22/24documented as of this encounter
--- OUTSIDE RECORDS SUMMARY | 2025-09-20 16:59 | XMS_ITS | Patient Health Record ---
Author Organization [facility] [place] Address [address] [place] [address] Care Team Providers Care Petal Cutter Name Role Phone MARAL SOTO Unavailable [phone] Results Component Value Reference Range Notes CBC AUTO DIFF (Not yet revie wed by provider) Interpretation: Performing Lab: Notes/Report: Peripheral Smear not indicated. [facility] , White Blood Count 5.8 4.0-11.0 10 3/uL Red Blood Count4.294.20-5.40 10 6/yRLqvgvoacaq71.312.0-16.0 g/gFBxwogslzmi89.4 36.0-48.0 %Mean Corpuscular Saimcf76.881.0-99.0 fLMean Corpuscular Hemoglobin 28.726.7-34.0 pgMean Corpuscular HGB Conc33.829.9-35.2 g/dLRed Cell Distribution Width13.211.0-15.0 %Platelet Ibxgl659515-999 10 3/uLMean Platelet Tteilg59.79.5- 13.5 fLNeutrophils Percent Auto71.843.0-75.0 %Lymphocytes Percent Auto21.620.5- 60.0 %Monocytes Percent Auto5.31.7-12.0 %Eosinophils Percent Auto0.30.9-7.0 % Basophils Percent Auto0.30.2-2.0 %Immature Granulocytes Pct Auto0.70.0-0.5 % Neutrophils Absolute Auto4.21.4-6.5 10 3/uLLymphocytes Absolute Auto1.31.2-3.8 10 3/uLMonocytes Absolute Auto0.30.3-0.8 10 3/uLEosinophils Absolute Auto0.00.0- 0.7 10 3/uLBasophils Absolute Auto0.00.0-0.1 10 3/uLImmature Granulocytes Abs Auto0.040.00-0.03 10 3/uLPerforming Lab:see note - [facility] LB FERRITIN (Not yet reviewed by provider) Interpretation: Performing Lab: Notes/Report: [facility] ,Qbedwbad49.08.0-252.0 ng/mLPerforming Lab:see note - [facility] LB IRON AND TIBC (Not yet reviewed by provider) Interpretation: Performing Lab: Notes/Report: [facility] ,Iron67.050.0-170.0 ug/dLTotal Iron Binding Zsqmaslk138.0250.0-450.0 ug/dL Percent Iron Jezwxqhmxi00.7Performing Lab:see note - [facility] LB LDH (Not yet reviewed by provider) Interpretation: Performing Lab: Notes/Report: [facility] ,Lactate Dtnjhlvolqoeo89937-488 U/LPerforming Lab:see noteML - [facility] LB Reason For Referral No Information Encounters Encounter Location Date Provider Diagnosis [facility] Oncology [address] [place] [address] 09/07/2025 [facility] [address] [place] [address]/ [facility] [address] [place] [address]/[facility] Plan Of Treatment Pending Test Test Name Order Date CBC AUTO DIFF 08/29/2025 FERRITIN 08/29/2025 IRON AND TIBC 08/29/2025 LDH 08/29/2025 Insurance Providers Payer Name Payer Address Payer Phone Subscriber Number Group Number Insured Name Patient Relationship to Insured Coverage Start Date Coverage End Date [employer] [place] [employer] [address] [address] [place] [address] [id number] Arsalan Valentin - patient is the insured
[2025-09-20 17:05] VITALS: BP 113/73; PULSE 89
[2025-09-20 19:05] LABS: Glucose Urine UA NEGATIVE (NEGATIVE)
[2025-09-20 19:30] LABS: Cast Seen? NONE SEEN #/LPF (NONE SEEN); Crystals Seen? None Seen #/HPF (None Seen); Urine Culture Indicated YES-LC
== END 2025-09-20 19:45 | disposition home or self-care (01) ==
PROVIDERS: Admitting Provider Obstetrics & Gynecology; PCP Nurse Practitioner Family; Visit Provider Obstetrics & Gynecology
DX: O47.1 False labor at or after 37 completed weeks of gestation (principal); Z3A.39 39 weeks gestation of pregnancy
CPT/HCPCS: 59025; 81001; 87086; G0378; G0379

== ENCOUNTER 2025-09-26 04:20 | Observation (INO) | payer MEDICAID, SELFPAY ==
--- OUTSIDE RECORDS SUMMARY | 2024-09-20 04:30 | XMS_ITS ---
Author Organization [facility] vices Address [address] [place], [place] [phone] Care Team Providers Care Warp Doffer Name Role Phone Douglas Elizabeth Primary Care Provider [phone] Bev Cantu Unavailable [phone] Fernanda Salvador Unavailable [phone] REASON FOR VISIT Limited Exam Social History Sex Assigned At : Social History Observation Description Sex Assigned At Female Encounters Encounter Location Date Provider Diagnosis Dental Main [address] [place], [place] [phone] 09/20/2024 Fernanda Salvador Plan Of Treatment No Information Progress Notes * Kathie PHAM SDOB:1994 (30 yo F)Acc No.[id number]:09/20/2024 Patient:?Kathie PHAM :?Fernanda Salvador ELLIOTDOB:1995???Age:29 Y ???Sex:FemaleDate:09/20/2024hone:[phone]:Wenceslao MCKEON, [address] SethiMAGNETIC [place], [place]-[id number]:Douglas Elizabeth Subjective: * Chief Complaints: * 1 . Limited Exam. * Medical History: Objective: * Vitals: Assessment: Plan: * Treatment: * Billing Information: * Visit Code: * Procedure Codes: * Electronic signature of Fernanda Salvador DMD on 09/26/2025 at 04:27 AM ESTSign off status: Pending * Provider: Alexandra Salvador DMD Date: 1 Generated for Printing/Faxing/eTransmitting on:?09/26/2025 04:27 AM EST
--- OUTSIDE RECORDS SUMMARY | 2025-02-01 04:30 | XMS_ITS ---
Author Organization [facility] vices Address [address] [place] [phone] Care Team Providers Care Welder Machine Operator Name Role Phone Douglas Elizabeth Primary Care Provider Bev Cantu Unavailable [phone] Luke Rod Unavailable [phone] REASON FOR VISIT Periodic Exam Social History Sex Assigned At : Social History Observation Description Sex Assigned At Female Encounters Encounter Location Date Provider Diagnosis Dental Main [address] [place], [place] [phone] 02/01/2025 Luke Rod Plan Of Treatment No Information Progress Notes * Kathie PHAM SDOB:1994 (30 yo F)Acc No.[id number]:02/01/2025 Patient:?Kathie PHAM :?Luke Rod DDSDOB:1995???Age:29 Y ???Sex:FemaleDate:02/01/2025Phone:[phone]:Wenceslao MCKEON, [address] SethiHAR[place], [place]HDU-[id number]:Douglas Elizabeth Subjective: * Chief Complaints: * 1 . Periodic Exam. * Medical History: Objective: * Vitals: Assessment: Plan: * Treatment: * Billing Information: * Visit Code: * Procedure Codes: * Electronic signature of Luke Rod DDS on 09/26/2025 at 04:27 AM ESTSign off status: Pending * Provider: Rach Rod DDS Date: 0 02/01/2025 Generated for Printing/Faxing/eTransmitting on:?09/26/2025 04:27 AM EST
--- OUTSIDE RECORDS SUMMARY | 2025-08-29 08:30 | XMS_ITS ---
Author Organization [facility] in [place] Address [address] [place] [address] Care Team Providers Care Grinding Wheel Facer Name Role Phone MARAL SOTO Unavailable [phone] REASON FOR VISIT New PT Hem Encounters Encounter Location Date Provider Diagnosis [facility] Oncology [address] [place] [phone] 08/29/2025 MARAL SOTO Plan Of Treatment No Information Progress Notes * Kathie PHAMDOB:[birth year] (30 yo F)Acc No.[id number]:08/29/2025 UNLOCKED PROGRESS NOTE Progress Notes Patient: Kathie ZAMORA :?MARAL SOTO M.D.:1995???Age:30 Y ???Sex:FemaleDate:08/29/2025Phone:[phone]:[address] [place] [address] [address] [place], [place] Subjective: * Chief Complaints: * 1 . MD New PT Hem. * Medical History: Objective: * Vitals: Assessment: Plan: * Treatment: * * Electronic signature of MARAL SOTO MD on 09/26/2025 at 04:27 AM ESTSign off status: PendingVisit Status:?PEN (Pending) * Provider: Navdeep SOTO M.D. Date: Generated for Printing/Faxing/eTransmitting on:?09/26/2025 04:27 AM EST
--- OUTSIDE RECORDS SUMMARY | 2025-09-07 06:30 | XMS_ITS ---
Author Organization [facility] in [place] Address [address] [place] [address] Care Team Providers Care Special Education Paraprofessional Name Role Phone MARAL SOTO Unavailable [phone] REASON FOR VISIT Iron sucrose injection (Venofer) Encounters Encounter Location Date Provider Diagnosis [facility] Oncology [address] [place] [phone] 09/07/2025 MARAL SOTO Plan Of Treatment No Information Progress Notes * Kathie PHAMDOB:[birth year] (30 yo F)Acc No.[id number]:09/07/2025 UNLOCKED PROGRESS NOTE Progress Note Patient: Kathie ZAMORA :?MARAL SOTO M.D.:1995???Age:30 Y ???Sex:FemaleDate:09/07/2025Phone:[phone]:[address] [place] [address] [address] [place] [place], [place] Subjective: * Chief Complaints: * 1 . Iron sucrose injection (Venofer). * Medical History: Objective: * Vitals: Assessment: Plan: * Treatment: * * Electronic signature of MARAL SOTO MD on 09/26/2025 at 04:27 AM ESTSign off status: PendingVisit Status:?PEN (Pending) * Provider: Navdeep SOTO M.D. Date: 1 Generated for Printing/Faxing/eTransmitting on:?09/26/2025 04:27 AM EST
--- OUTSIDE RECORDS SUMMARY | 2025-09-12 10:45 | XMS_ITS ---
Author Organization [facility] in [place] Address [address] [place] [address] Care Team Providers Care Rotary Lithographic Press Operator Name Role Phone MARAL SOTO Unavailable [phone] REASON FOR VISIT MD TELEHEALTH Encounters Encounter Location Date Provider Diagnosis [facility] Oncology [address] [place] [phone] 09/12/2025 MARAL SOTO Plan Of Treatment No Information Progress Notes * Kathie PHAMDOB:[birth year] (30 yo F)Acc No.[id number]:09/12/2025 UNLOCKED PROGRESS NOTE Progress Notes Patient: Kathie ZAMORA :?MARAL SOTO M.D.:1995???Age:30 Y ???Sex:FemaleDate:09/12/2025Phone:[phone]:[facility] [address] Seth[address] [place], [place] Subjective: * Chief Complaints: * 1 . TELEHEALTH. * Medical History: Objective: * Vitals: Assessment: Plan: * Treatment: * * Electronic signature of MARAL SOTO MD on 09/26/2025 at 04:28 AM ESTSign off status: PendingVisit Status:?ANSPH (Voice) * Provider: Navdeep SOTO M.D. Date: Generated for Printing/Faxing/eTransmitting on:?09/26/2025 04:28 AM EST
--- OUTSIDE RECORDS SUMMARY | 2025-09-14 09:30 | XMS_ITS | Encounter Summary ---
Author Organization [facility] Address [address] [address] Care Team Providers Care Supervisor Dairy Sanitation Name Role Phone Eleanor Andres MD Unavailable Reason for Visit * ReasonCommentsRoutine Visit Encounter Details DateTypeDepartmentCare Team (Latest Contact Info)Cercxuackfh56/23/2025 10:30 AM EDTRoutine [facility] LUCIANO [address] [place] [address] Angela Horton PA [address] [place], [facility]11 38 weeks gestation of ([facility] Third trimester ([facility]); Request for sterilization; Thrombocytopenia affecting , antepartum ([facility]); UTI symptoms Social History Tobacco UseTypesPacks/DayYears UsedDateSmoking Tobacco: Never AssessedPHQ-2 AnswerDate RecordedPatient Health Questionnaire-2 [id number] Estimated Date of TlavtsarVjobhzvvMqs25/02/2025Based on UltrasoundSex and Gender InformationValueDate RecordedSex Assigned at BirthNot on fileLegal SexFemale 08/17/2024 11:40 AM EDTGender IdentityNot on fileSexual OrientationNot on file documented as of this encounter Last Filed Vital Signs Vital SignReadingTime TakenCommentsBlood Xiherydp121/7009/14/2025 10:37 AM EDT Pulse--Temperature--Respiratory Rate--Oxygen Saturation--Inhaled Oxygen Concentration--Ynuzut96 kg (141 lb)09/14/2025 10:37 AM EDTHeight--Body Mass Index20.8210/ 10:21 AM EDTdocumented in this encounter Functional Status * Over the past 2 weeks, how often have you been bothered by any of the following problems?QuestionAnswerDate of AssessmentAuthorLittle interest or pleasure in doing thingsNot at all09/14/2025 9:49 AM Angela Garcia LPN Feeling down, depressed, or hopelessNot at all09/14/2025 9:49 AM Angela Garcia LPNPatient Health Questionnaire-2 Oebzy441 9:49 AM Angela Garcia LPN documented as of this encounter Progress Notes * VINCENT Eduardo - 09/14/2025 10:30 AM EDT Reason for Appointment: Patient ID: [...] 28-0.8 MG tablet 1 tablet, Every morning AD-Ydp-HW-[place]-3 ( Gummies/DHA & FA) 0.4-32.5 MG chewable tablet Chew ALLERGIES Allergies Allergen Reactions Amoxicillin Itching 05/11/2024: tolerated ceftriaxone without allergic reaction PROBLEMS Active Ambulatory Problems Diagnosis Date Noted ([facility]) 07/04/2025 Third trimester ([facility]) 07/04/2025 Request for sterilization 08/16/2025 Resolved Ambulatory Problems Diagnosis Date Noted No Resolved Ambulatory Problems Past Medical History: Diagnosis Date Miscarriage ([facility]) 01/2023 Pre-eclampsia in period ([facility]) 10/11/2022 Sepsis ([facility]) 05/09/2024 HISTORY PAST MEDICAL HISTORY SOCIAL HISTORY Past Medical History: Diagnosis Date Miscarriage ([facility]) 01/2023 @ 9 weels Pre-eclampsia in period ([facility]) 10/11/2022 Sepsis ([facility]) 05/09/2024 sepsis after deliverying infant 2 days later due to strep A Social History Tobacco Use Smoking status: Not on file Smokeless tobacco: Not on file Substance Use Topics Alcohol use: Not on file Drug use: Not on file FAMILY HISTORY No family history on file. SURGICAL HISTORY History reviewed. No pertinent surgical history. REVIEW OF SYSTEMS Review of Systems: Review [...] nursing note reviewed. Exam conducted with a tool honing machine set up operator present. Vitals: Estimated body mass index is 20.82 kg/m?? as calculated from the following: Height as of 09/07/25: 5' 9 . Weight as of this encounter: 141 lb. BP: 120/70 Patient's last menstrual period was 01/01/2025. Assessment/Plan ICD-10-CM 1. 38 weeks gestation of ([facility]) Z3A.38 POCT urinalysis dipstick manually resulted 2. Third trimester ([facility]) Z34.93 POCT urinalysis dipstick manually resulted 3. Request for sterilization Z30.2 4. Thrombocytopenia affecting , antepartum ([facility]) O99.119 D69.6 Return OB: Patient presents today for a routine obstetrics appointment. Patient is currently 38w4d . Patient states she is doing well but has complaints of being tired due to current . Patient has verbalizes frequent movement. labor precautions was discussed/given and patient was instructed to perform kick counts three times a day. Orders Placed This Encounter Procedures POCT urinalysis dipstick manually resulted Follow Up: Patient is to return to office in 1 week for routine OB appointment. Documented by Mis Guadarrama LPN on behalf of: VINCENT Eduardo documented in this encounter Miscellaneous Notes * Addendum Note - Bertha Lazaro - 09/14/2025 10:30 AM EDTAddended by: BERTHA LAZARO on: 09/14/2025 11:31 AM Modules accepted: Orders documented in this encounter Plan of Treatment DateTypeDepartmentCare Team (Latest Contact Info)Pperczuuhxg58/04/2025 9:30 AM ESTRoutine [facility] [address] [address] Peter Tellez DO [address] [place] [address] NameTypePriorityAssociated DiagnosesOrder ScheduleUrine cultureMicrobiology Routine UTI symptoms Ordered: 09/14/2025documented as of this encounter Procedures Procedure NamePriorityDate/TimeAssociated DiagnosisCommentsPOCT URINALYSIS LDSQSAVGIjvmkxi18/23/2025 10:47 AM EDT 38 weeks gestation of ([facility]) Third trimester ([facility]) documented in this encounter Results * (ABNORMAL) POCT urinalysis dipstick manually resulted (09/14/2025 10:47 AM EDT)ComponentValueRef RangeTest MethodAnalysis TimePerformed AtPathologist SignatureColor, UAAmberClarity, UAClearGlucose, UANegativeNegative - 2000(110) ++++ mg/dLBilirubin, UANegativeNegative - 4(70) +++ mg/dLKetones, UANegative Negative - 160(16) ++++ mg/dLSpec Grav, UA1.0201 - 1.03Blood, UANegative Negative - 50 Roland/mcLpH, UA6.05 - 9Protein, UAPositiveNegative - 2000(20) ++++ mg/dLUrobilinogen, UA1.00.2 - 12 mg/dLLeukocytes, UA3+Negative - 500+++ Ethan/mcLNitrite, UANegativeNegative - PositiveSpecimen (Source)Anatomical Location / LateralityCollection Method / VolumeCollection TimeReceived Time Urine09/14/2025 10:47 AM EDT Narrative Authorizing ProviderResult TypeResult StatusBuchanan [facility] TEST ENTER/EDIT ORDERABLESFinal Result documented in this encounter Visit Diagnoses Diagnosis 38 weeks gestation of ([facility]) Third trimester ([facility]) state, incidental Request for sterilization Thrombocytopenia affecting , antepartum ([facility]) UTI symptoms documented in this encounter Care Teams Team MemberRelationshipSpecialtyStart DateEnd Date Eleanor Andres MD [address] [address] PCP - [facility]02/22/24documented as of this encounter
--- OUTSIDE RECORDS SUMMARY | 2025-09-21 08:30 | XMS_ITS | Encounter Summary ---
Author Organization [facility] Address [address] [place] [address] Care Team Providers Care Siding Coreboard Inspector Name Role Phone Eleanor Andres MD Unavailable Reason for Visit * ReasonCommentsRoutine Visit Encounter Details DateTypeDepartmentCare Team (Latest Contact Info)Hlirhdeqhfv42/30/2025 9:30 AM EDTRoutine [facility] Ma[facility]dra LUCIANO [address] [address] Angela Horton PA [address] [place], [facility]11 Third trimester ([facility]); 39 weeks gestation of ([facility]) Social History Tobacco UseTypesPacks/DayYears UsedDateSmoking Tobacco: Never AssessedPHQ-2 AnswerDate RecordedPatient Health Questionnaire-2 Nbmxt074 Estimated Date of GtxapnwbJcdqsgtmWki64/02/2025Based on UltrasoundSex and Gender InformationValueDate RecordedSex Assigned at BirthNot on fileLegal SexFemale 08/17/2024 11:40 AM EDTGender IdentityNot on fileSexual OrientationNot on file documented as of this encounter Last Filed Vital Signs Vital SignReadingTime TakenCommentsBlood Ccedweow699/6809/21/2025 9:47 AM EDT Pulse--Temperature--Respiratory Rate--Oxygen Saturation--Inhaled Oxygen Concentration--Frbvps18.5 kg (140 lb)09/21/2025 9:47 AM EDTHeight--Body Mass Index20.6709/07/2025 10:21 AM EDTdocumented in this encounter Progress Notes * VINCENT Eduardo - 09/21/2025 9:30 AM EDT Reason for Appointment: Patient ID: Kathie Valentin is a 30 y.o. female who presents for Routine Visit Patient presents today for Return OB appointment. MEDICATIONS Current Outpatient Medications Medication Instructions acetaminophen (TYLENOL) 1,000 mg, Every 6 hours PRN Ferrous Sulfate (IRON PO) 1 tablet, Daily RT nitrofurantoin (macrocrystal-monohydrate) (MACROBID) 100 mg, Oral, 2 times daily ondansetron ODT (ZOFRAN-ODT) 4 mg, Every 8 hours PRN 28-0.8 MG tablet 1 tablet, Every morning MO-Gqm-LX-[place]-3 ( Gummies/DHA & FA) 0.4-32.5 MG chewable tablet Chew terconazole (Terazol 7) 0.4 % vaginal cream 1 applicator, Vaginal, Nightly ALLERGIES Allergies Allergen Reactions Amoxicillin Itching 05/11/2024: tolerated ceftriaxone without allergic reaction PROBLEMS Active Ambulatory Problems Diagnosis Date Noted ([facility]) 07/04/2025 Third trimester ([facility]) 07/04/2025 Request for sterilization 08/16/2025 Resolved Ambulatory Problems Diagnosis Date Noted No Resolved Ambulatory Problems Past Medical History: Diagnosis Date Miscarriage ([facility]) 01/2023 Pre-eclampsia in period ([facility]) 10/11/2022 Sepsis ([facility]) 05/09/2024 HISTORY PAST MEDICAL HISTORY SOCIAL HISTORY Past Medical History: Diagnosis Date Miscarriage ([facility]) 01/2023 @ 9 weels Pre-eclampsia in period ([facility]) 10/11/2022 Sepsis ([facility]) 05/09/2024 sepsis after deliverying infant 2 days [...] normal. Vitals and nursing note reviewed. Vitals: Estimated body mass index is 20.67 kg/m?? as calculated from the following: Height as of 09/07/25: 5' 9 . Weight as of this encounter: 140 lb. BP: 110/68 Patient's last menstrual period was 01/01/2025. Assessment/Plan ICD-10-CM 1. Third trimester ([facility] Z34.93 2. 39 weeks gestation of ([facility]) Z3A.39 Return OB: Patient presents today for a routine obstetrics appointment. Patient is currently 39w4d . Patient states she is doing well but has complaints of being tired due to current . Patient has verbalizes frequent movement. labor precautions was discussed/given and patient was instructed to perform kick counts three times a day. No orders of the defined types were placed in this encounter. Follow Up: Patient is to return to office in 1 week for routine OB appointment. Documented by VINCENT Eduardo on behalf of: VINCENT Eduardo documented in this encounter Plan of Treatment DateTypeDepartmentCare Team (Latest Contact Info)Djpvaaqlwrb91/04/2025 9:30 AM ESTRoutine [facility] [address] [place] [address] Peter Tellez DO [address] [place] [address] documented as of this encounter Visit Diagnoses Diagnosis Third trimester ([facility]) state, incidental 39 weeks gestation of ([facility]) documented in this encounter Care Teams Team MemberRelationshipSpecialtyStart DateEnd Date Eleanor Andres MD [address] [address] PCP - [facility]02/22/24documented as of this encounter
--- OUTSIDE RECORDS SUMMARY | 2025-09-26 04:27 | XMS_ITS | Clinical Summary ---
Author Organization [facility] Healthcare Address [address] [place] [address] Care Team Providers Care Power Press Tender Name Role Phone Eleanor Andres MD Unavailable Allergies Active AllergyReactionsCriticalityNoted DateCommentsAmoxicillinItchingMedium 08/25/2022 05/11/2024: tolerated ceftriaxone without allergic reaction Medications MedicationSigDispense QuantityRefillsLast FilledStart DateEnd DateStatus Ferrous Sulfate (IRON PO) Take 1 tablet by mouth in the morning.5Active ondansetron ODT (Zofran-ODT) 4 MG disintegrating tablet Take 4 mg by mouth every 8 (eight) hours if haodiw044Active 28-0.8 MG tablet Take 1 tablet by mouth in the morning.5Active acetaminophen (Tylenol) 500 MG tablet Take 1,000 mg by mouth every 6 (six) hours if neededActive ON-Bah-KN-[place]-3 ( Gummies/DHA & FA) 0.4-32.5 MG chewable tablet ChewActive nitrofurantoin, macrocrystal-monohydrate, (Macrobid) 100 MG capsule Indications:BV (bacterial vaginosis)Take 1 capsule (100 mg) by mouth in the morning and 1 capsule (100 mg) before bedtime. Do all this for 7 days. 14 capsule Expired terconazole (Terazol 7) 0.4 % vaginal cream Indications:Yeast infectionInsert 1 applicator into the vagina at bedtime for 7 days 45 g Expired Active Problems ProblemNoted DateDiagnosed DateRequest for esjyqgbpqhwzh07/24/2025Pregnancy ([facility])07/04/2025Third trimester ([facility])07/04/2025 Estimated Date of MqiixptdGxzchmhlRit47/02/2025ased on Ultrasound Encounters DateTypeDepartmentCare DianKrjeygmzgse21/30/2025 9:30 AM EDTRoutine [facility] [address] [address] Angela Horton PA Third trimester ([facility]); 39 weeks gestation of ([facility])09/21/2025Telephone [facility] [place] [facility] [address] [place] [address] Tari Nunez MA Error (VOID this visit)09/21/2025amboo flowsheet [facility] [address] [address] Angela Horton PA 09/15/2025bstract [facility] [place] [facility] [address] [address] [place] 09/15/2025Telephone [facility] [place] [facility] [address] [address] [place], [place] 09/15/2025bstract [facility] [address] [place] [address] Angela Harley LPN 09/14/2025 10:30 AM EDTRoutine [facility] [address] [place] [address] Angela Horton PA 38 weeks gestation of ([facility]); Third trimester ([facility]); Request for sterilization; Thrombocytopenia affecting , antepartum ([facility]); UTI gvkadmvw73/23/2025External Result Encounter NOMS External Department Unsolicited Angela Horton PA 09/14/2025Patient Outreach [facility] [place] [address] Angela Harley LPN 09/13/20252701Hjnwvu92/16/2025 9:50 AM EDTRoutine [facility] LUCIANO [address] [address] Peter Tellez, DO 37 weeks gestation of ([facility]); Third trimester ([facility])09/07/2025amboo flowsheet [facility] OBSAMANTHAN [address] [address] Peter Tellez, DO 09/06/20257409Vyiwvj26/10/2025bstract [facility] OBFELICIA [address] [place] [address] [place] [address] Peter Tellez, 08/31/2025 2:30 PM EDTRoutine [facility] LUCIANO [address] [place] [address] [place] [address] Brenda Traore, DOTTIE Third trimester ([facility]); 36 weeks gestation of ([facility])08/31/2025amb flowsheet [facility] GARZAN [address] [place] [address] [place] [address] Brenda Traore, DOTTIE 08/31/20256342Emrlrf19/24/2025 2:10 PM EDTRoutine [facility] LUCIANO [address] [place] [address] [place] [address] Peter Tellez, 34 weeks gestation of ([facility]); Third trimester ([facility]); Request for sterilization; Thrombocytopenia affecting , antepartum ([facility])08/16/2025linisync Result Encounter NOMS External Department Unsolicited Peter Tellez, 08/16/2025Telephone [facility] LUCIANO [address] [place] [address] [place] [address] Gilma AlfredoSIMRAN 08/16/2025amboo flowsheet [facility] [address] [address] Peter Tellez, 08/03/2025 11:00 AM EDTRoutine [facility] [place] [facility] [address] [place] [address] Angela Horton PA Third trimester ([facility]); 32 weeks gestation of ([facility])08/03/2025linisync Result Encounter NOMS External Department Unsolicited Peter Tellez, 08/03/2025amboo flowsheet [facility] [address] [address] Angela Horton PA 07/28/2025bstract [facility] [address] [place] [address] Osiris Urbina MA 07/20/2025 10:20 AM EDTRoutine [facility] [address] [place] [address] Peter Tellez DO Size of fetus inconsistent with dates in first trimester ([facility]) (Primary Dx); Third trimester ([facility]); 30 weeks gestation of ([facility]); Low platelet count07/20/2025amboo flowsheet [facility] [address] [address] Pteer Tellez, 07/14/2025bstract [facility] [address] [place] [address] Angela Horton PA 07/13/2025External Result Encounter NOMS External Department Unsolicited Angela Horton PA 07/04/2025 10:50 AM EDTRoutine [facility] [address] [place] [address] [place] [address] Peter Tellez DO , unspecified gestational age [facility] Third trimester ([facility])07/04/2025amboo flowsheet NOMChiara LUCIANO [address] [place], [place] [address] [address] Peter Tellez DO from Last 3 Months Social History Tobacco UseTypesPacks/DayYears UsedDateSmoking Tobacco: Never AssessedPHQ-2 AnswerDate RecordedPatient Health Questionnaire-2 Xurux435 Estimated Date of RqqmjqyvRhsxtjwpFzj95/02/2025ased on UltrasoundSex and Gender InformationValueDate RecordedSex Assigned at BirthNot on fileLegal SexFemale 08/17/2024 11:40 AM EDTGender IdentityNot on fileSexual OrientationNot on file Last Filed Vital Signs Vital SignReadingTime TakenCommentsBlood Xpqhtmui615/6809/21/2025 9:47 AM EDT Pulse--Temperature--Respiratory Rate--Oxygen Saturation--Inhaled Oxygen Concentration--Yporxy66.5 kg (140 lb)09/21/2025 9:47 AM JQGQmpwas777.3 cm (5' 9 )09/07/2025 10:21 AM EDTBody Mass Index20.6709/07/2025 10:21 AM EDT Plan of Treatment DateTypeDepartmentCare Team (Latest Contact Info)Jbupnrfgbem66/04/2025 9:30 AM ESTRoutine [facility] LUCIANO [address] [place] [address] [place] [address] Peter Tellez DO [address] [place] [address] [address] [place], [place] [id number] Health MaintenanceDue DateLast DoneCommentsCOVID-19 Vaccine ( season) 2025Influenza Vaccine (#1)2025Pneumococcal Vaccine: Pediatrics (0 to 5 Years) and At-Risk Patients (6 to 64 Years)Aged OutNo longer eligible based on patient's age to complete this topic Procedures Procedure NamePriorityDate/TimeAssociated DiagnosisCommentsURINARY TRACT INFECTION (HTRX)Kcgqefb7609/14/2025 11:32 AM EDT POCT URINALYSIS IISOIZUHJaiuwzt81/23/2025 10:47 AM EDT 38 weeks gestation of ([facility]) Third trimester ([facility]) POCT URINALYSIS ABQXMVGCWrixtre15/16/2025 10:21 AM EDT 37 weeks gestation of ([facility]) CULTURE, GROUP B STREP WITH GFOJBZTKDICNNSboanfa53/09/2025 2:33 PM EDT Third trimester ([facility]) ALL CBC WITH AUTO PGZTVynpndk97/24/2025 3:13 PM EDT ALL CBC WITH AUTO AXFOMqvxlrv05/11/2025 11:42 AM EDT POCT URINALYSIS UJLQJXVHYuodtfu57/11/2025 11:11 AM EDT Third trimester ([facility]) POCT URINALYSIS NWCCGYZGPjyszfl42/28/2025 10:57 AM EDT Third trimester ([facility]) GLU 1 H POST 50G LOAD ([facility])Hdnpmoo4607/13/2025 2:30 PM EDT POCT URINALYSIS AGZNHOCPZbkxoto58/12/2025 11:44 AM EDT , unspecified gestational age ([facility]) Third trimester ([facility]) from Last 3 Months Results * (ABNORMAL) URINARY TRACT INFECTION (HTRX) (09/14/2025 11:32 AM EDT)Component ValueRef RangeTest MethodAnalysis TimePerformed AtPathologist Signature ACINETOBACTER JTYCBWQV817.961 - 24.689 ppm09/15/2025 7:31 AM EDTHealthTrackRx at LabPortACINETOBACTER BAUMANIINot Habljpvy59.961 - 24.689 ppm09/15/2025 7:31 AM EDTHealthTrackRx at LabPortCITROBACTER SEQLAXIR316.000 - 32.015 ppm 09/15/2025 7:31 AM EDTHealthTrackRx at LabPortCITROBACTER FREUNDIINot Detected 23.000 - 32.015 ppm09/15/2025 7:31 AM EDTHealthTrackRx at LabPortENTEROBACTER AEROGENES, IDADYKC343.000 - 32.290 ppm09/15/2025 7:31 AM EDTHealthTrackRx at LabPortENTEROBACTER AEROGENES, CLOACAENot Fssailpm46.000 - 32.290 ppm 09/15/2025 7:31 AM EDTHealthTrackRx at LabPortENTEROCOCCUS FAECALIS, FAECIUM0 26.000 - 33.043 ppm09/15/2025 7:31 AM EDTHealthTrackRx at LabPortENTEROCOCCUS FAECALIS, FAECIUMNot Zprnwprj70.000 - 33.043 ppm09/15/2025 7:31 AM EDT HealthTrackRx at LabPortESCHERICHIA COLI25.84(A)23.000 - 28.500 ppm09/15/2025 7:31 AM EDTHealthTrackRx at LabPortESCHERICHIA COLIDetected(A)23.000 - 28.500 ppm09/15/2025 7:31 AM EDTHealthTrackRx at LabPortKLEBSIELLA PNEUMONIAE, NBCIDKS818.000 - 31.865 ppm09/15/2025 7:31 AM EDTHealthTrackRx at LabPort KLEBSIELLA PNEUMONIAE, OXYTOCANot Bqrcksij72.000 - 31.865 ppm09/15/2025 7:31 AM EDTHealthTrackRx at LabPortMORGANELLA LEOQDDID069.961 - 24.689 ppm 09/15/2025 7:31 AM EDTHealthTrackRx at LabPortMORGANELLA MORGANIINot Detected 19.961 - 24.689 ppm09/15/2025 7:31 AM EDTHealthTrackRx at LabPortPROTEUS MIRABILIS, PVWDVAQS247.000 - 28.500 ppm09/15/2025 7:31 AM EDTHealthTrackRx at LabPortPROTEUS MIRABILIS, VULGARISNot Bdyrtibr29.000 - 28.500 ppm09/15/2025 7:31 AM EDTHealthTrackRx at LabPortPSEUDOMONAS QUQVQEQIIC394.000 - 31.801 ppm 09/15/2025 7:31 AM EDTHealthTrackRx at LabPortPSEUDOMONAS AERUGINOSANot Gccphckk59.000 - 31.801 ppm09/15/2025 7:31 AM EDTHealthTrackRx at LabPort STAPHYLOCOCCUS QARLOO729.000 - 31.595 ppm09/15/2025 7:31 AM EDTHealthTrackRx at LabPortSTAPHYLOCOCCUS AUREUSNot Wodsekbr74.000 - 31.595 ppm09/15/2025 7:31 AM EDTHealthTrackRx at LabPortSTREPTOCOCCUS AGALACTIAE (GROUP B STREP)026.000 - 32.435 ppm09/15/2025 7:31 AM EDTHealthTrackRx at LabPortSTREPTOCOCCUS AGALACTIAE (GROUP B STREP)Not Vikggsxt83.000 - 32.435 ppm09/15/2025 7:31 AM EDTHealthTrackRx at LabPortCANDIDA ALBICANS, PARAPSILOSIS, LSIXPBQMBI88.946(A) 23.000 - 30.347 ppm09/15/2025 7:31 AM EDTHealthTrackRx at LabPortCANDIDA ALBICANS, PARAPSILOSIS, TROPICALISDetected(A)23.000 - 30.347 ppm09/15/2025 7:31 AM EDTHealthTrackRx at LabPortCANDIDA RGNZRUMO830.000 - 31.618 ppm 09/15/2025 7:31 AM EDTHealthTrackRx at LabPortCANDIDA GLABRATANot Detected 23.000 - 31.618 ppm09/15/2025 7:31 AM EDTHealthTrackRx at LabPortCANDIDA FUODPG342.000 - 30.873 ppm09/15/2025 7:31 AM EDTHealthTrackRx at LabPort VANESA KRUSEINot Qrobffin63.000 - 30.873 ppm09/15/2025 7:31 AM EDT [facility]TrackRx at LabPortSERRATIA FZGEJTVJFC911.000 - 31.581 ppm09/15/2025 7:31 AM EDTHealthTrackRx at LabPortSERRATIA MARCESCENSNot Bssnotgl38.000 - 31.581 ppm09/15/2025 7:31 AM EDTHealthTrackRx at LabPortSTREPTOCOCCUS PYOGENES (GROUP A STREP)019.961 - 24.689 ppm09/15/2025 7:31 AM EDTHealthTrackRx at LabPort STREPTOCOCCUS PYOGENES (GROUP A STREP)Not Vlapvzhr07.961 - 24.689 ppm 09/15/2025 7:31 AM EDTHealthTrackRx at LabPortSTAPHYLOCOCCUS EPIDERMIDIS, HAEMOLYTICUS, LUGDUNENSIS, SAPROPHYTICUS (ZNRUD682.961 - 24.689 ppm09/15/2025 7:31 AM EDTHealthTrackRx at LabPortSTAPHYLOCOCCUS EPIDERMIDIS, HAEMOLYTICUS, LUGDUNENSIS, SAPROPHYTICUS (URINANot Rypternf71.961 - 24.689 ppm09/15/2025 7:31 AM EDTHealthTrackRx at LabPortSTAPHYLOCOCCUS EPIDERMIDIS, HAEMOLYTICUS, LUGDUNENSIS, SAPROPHYTICUS (ZBRVF701.961 - 24.689 ppm09/15/2025 7:31 AM EDT [facility] at LabPortSTAPHYLOCOCCUS EPIDERMIDIS, HAEMOLYTICUS, LUGDUNENSIS, SAPROPHYTICUS (URINANot Ugatzlod31.961 - 24.689 ppm09/15/2025 7:31 AM EDT [facility] at LabPortTET B, TET M27.09(A)23.000 - 27.500 ppm09/15/2025 7:31 AM EDTHealthTrackRx at LabPortTET B, TET MDetected(A)23.000 - 27.500 ppm 09/15/2025 7:31 AM EDTHealthTrackRx at LabSouthlake Center For Mental HealthSpecimen (Source)Anatomical Location / LateralityCollection Method / VolumeCollection TimeReceived Time Urine09/14/2025 11:32 AM EDT10/ 1:45 AM EDT Narrative Authorizing ProviderResult TypeResult StatusAmy Sol PALAB BLOOD ORDERABLES Final ResultPerforming OrganizationAddressCity/State/ZIP CodePhone Number [facility]ALTHTRASANTYRGrant HealthTrasantyRx at LabPort [address] [address] * (ABNORMAL) POCT urinalysis dipstick manually resulted [...] Location / LateralityCollection Method / VolumeCollection TimeReceived WbetNgghk71/23/2025 10:47 AM EDT Narrative Authorizing ProviderResult TypeResult StatusAngela Hroton PAPOINT OF CARE TEST ENTER/EDIT ORDERABLESFinal Result * CULTURE, GROUP B STREP WITH SUSCEPTIBLITY (08/31/2025 2:33 PM EDT)Specimen (Source)Anatomical Location / LateralityCollection Method / VolumeCollection TimeReceived HcgrGifp14/09/2025 2:33 PM EDT Narrative Authorizing ProviderResult TypeResult StatusCharitybebe Eugenie NPLAB BLOOD ORDERABLESEdited Result - FinalPerforming OrganizationAddressCity/State/ZIP Code [...] - 35.2 g/dLTBHTBH RDW13.611.0 - 15.0 %TBHTBH EYI149(L)150 - 450 10 3/uLTBHTBH MPV11.59.5 - 13.5 [...] 08/16/2025 3:45 PM EDT Authorizing ProviderResult TypeResult StatusCorey Rosalinda DOCLINISYNCFinal Result Performing OrganizationAddressCity/State/ZIP CodePhone Number [facility] * GLU 1 H POST 50G LOAD ([facility]) (07/13/2025 2:30 PM EDT)ComponentValueRef RangeTest MethodAnalysis TimePerformed AtPathologist SignatureGLU 1 H POST 50G [id number] - 139 mg/dLPROMEDICAComment: ?? PERFORMED AT [facility] [address],[place] [address] Specimen (Source)Anatomical Location / LateralityCollection Method / Volume Collection TimeReceived Time07/13/2025 2:30 PM EDT07/13/2025 5:29 PM EDT Narrative Authorizing ProviderResult TypeResult StatusAmy Sargent PALAB BLOOD ORDERABLES Final ResultPerforming OrganizationAddressCity/State/ZIP CodePhone Number [facility] from Last 3 [place] [address] Care Teams Team MemberRelationshipSpecialtyStart DateEnd Date Eleanor Andres MD [address] [place] [address] PCP - [facility] Garett [facility]02/22/24
--- OUTSIDE RECORDS SUMMARY | 2025-09-26 04:28 | XMS_ITS | Encounter Summary ---
Author Organization [facility] Address [address] [place] [address] [place] [address] Care Team Providers Care Cut Off Saw Grader Name Role Phone Eleanor Andres MD Unavailable Encounter Details DateTypeDepartmentCare Team (Latest Contact Info)Dmppsdnqknx28/24/2025bstract ESTHER LUCIANO [address] [place] [address] [place] [address] Osiris Urbina MA Social History Tobacco UseTypesPacks/DayYears UsedDateSmoking Tobacco: Never AssessedPHQ-2 AnswerDate RecordedPatient Health Questionnaire-2 Fjooz430 Estimated Date of RerpwjnqUtkyekspGpe47/02/2025Based on UltrasoundSex and Gender InformationValueDate RecordedSex Assigned at BirthNot on fileLegal SexFemale 08/17/2024 11:40 AM EDTGender IdentityNot on fileSexual OrientationNot on file documented as of this encounter Plan of Treatment DateTypeDepartmentCare Team (Latest Contact Info)Ighxokhwljb38/04/2025 9:30 AM ESTRoutine ESTHER LUCIANO [address] [facility] [address] Peter Tellez DO [address] [place] [address] documented as of this encounter Visit Diagnoses Not on filedocumented in this encounter Care Teams Team MemberRelationshipSpecialtyStart DateEnd Date Eleanor Andres MD [address] [facility] [address] [place] [address] PCP - NOMChiara Bajwa [facility]02/22/24documented as of this encounter
--- OUTSIDE RECORDS SUMMARY | 2025-09-26 04:28 | XMS_ITS | Encounter Summary ---
Author Organization [employer] tem Address [id number] [address] [place] [address] Care Team Providers Care Fruit Peeler Name Role Phone No Pcp, No Pcp Primary Care Provider Unavailabl e Encounter Details DateTypeDepartmentCare Team (Latest Contact Info)Btkluycwqah76/20/2025Results Follow-Up Maria Fernanda Cheng [facility] - Medical Oncology [address] [place] [address] Mitul Vila MD [address] [place] [address] [address] [place] [address] CBC with auto diff, Iron and TIBC, Ferritin Social History Tobacco UseTypesPacks/DayYears UsedDateSmoking Tobacco: NeverSmokeless Tobacco: NeverAlcohol UseStandard Drinks/WeekCommentsNo0 (1 standard drink = 0.6 oz pure alcohol)[facility] UtilitiesAnswerDate RecordedIn the past 12 months has the [employer], gas, oil, or water [employer] threatened to shut off services in your home?No 07/11/2024Overall Financial Resource Strain (CARDIA)AnswerDate RecordedHow hard is it for you to pay for the very basics like food, housing, medical care, and heating?Not hard at all05/09/2024HQ-2AnswerDate RecordedTotal Gxgbg774 PRAPARE - TransportationAnswerDate RecordedIn the past 12 months, has lack of transportation kept you from medical appointments or from getting medications?No 07/11/2024In the past 12 months, has lack of transportation kept you from meetings, work, or from getting things needed for daily living?No07/11/2024 [place] Depression ScaleAnswerDate RecordedEdinburgh Depression Scale Scqci67812/31/2021The thought of harming myself has occurred to me.Never10/30/2022Housing InstabilityAnswerDate RecordedAre you worried or concerned that in the next two months you may not have stable housing that you own, rent or stay in as a part of a household?No07/11/2024hildcareAnswerDate RecordedDo problems getting child care centre director make it difficult for you to work or study?No04/30/2022EmploymentAnswerDate FzsarurtHvudqayzckIzudkqk90/31/2019Hunger ScreeningAnswerDate RecordedWithin the past 12 months we worried whether our food would run out before we got money to buy more.Never True2025Within the past 12 months the food we bought just didn't last and we didn't have money to get more.Never True2025Purpose - LifeAnswerDate RecordedPurpose and direction in mzpxFyhbwlc70/04/2021Estimated Date of DeliveryCommentsYes 5Based on UltrasoundSex and Gender InformationValueDate RecordedSex Assigned at IexmaPcuxnb75/18/2022 10:30 AM ESTLegal MwsMgestu46/06/2015 11:51 AM EDTGender EithqjtmRxtjox22/18/2022 10:30 AM ESTSexual OrientationStraight 10/10/2022 10:30 AM ESTdocumented as of this encounter Plan of Treatment Not on file documented as of this encounter Visit Diagnoses Not on filedocumented in this encounter Additional Health Concerns AssessmentNoted TimePHQ-9 Depression Total Score: 7:01 PM EDT documented as of this encounter Care Teams Team MemberRelationshipSpecialtyStart DateEnd Date No Pcp, [place] [address] PCP - GeneralFamily Medicine02/05/25documented as of this encounter
--- OUTSIDE RECORDS SUMMARY | 2025-09-26 04:28 | XMS_ITS | Encounter Summary ---
Author Organization [facility] Address [address] [place] [address] Care Team Providers Care Burring Machine Operator Name Role Phone Eleanor Andres MD Unavailable Encounter Details DateTypeDepartmentCare Team (Latest Contact Info)Ejnufpwmknj79/24/2025Telephone ESTHER LUCIANO [address] [employer] [place] [address] Osiris Urbina MA Social History Tobacco UseTypesPacks/DayYears UsedDateSmoking Tobacco: Never AssessedPHQ-2 AnswerDate RecordedPatient Health Questionnaire-2 Xvfrr740 Estimated Date of XsshtfcfOvfnhzufKez25/02/2025Based on UltrasoundSex and Gender InformationValueDate RecordedSex Assigned [...] Plan of Treatment DateTypeDepartmentCare Team (Latest Contact Info)Vdzyrzyfcew52/04/2025 9:30 AM ESTRoutine [facility] Mahendra LUCIANO [address] [place] [address] Peter Tellez DO [address] [place] [address] documented as of this encounter Visit Diagnoses Diagnosis BV (bacterial vaginosis) Unspecified vaginitis and vulvovaginitis Yeast infection documented in this encounter Care Teams Team MemberRelationshipSpecialtyStart DateEnd Date Eleanor Andres MD [address] [facility] [address] [place] [address] PCP - [facility] Garett [facility]02/22/24documented as of this encounter
--- OUTSIDE RECORDS SUMMARY | 2025-09-26 04:28 | XMS_ITS | Encounter Summary ---
Author Organization [facility] Address [address] [place] [address] Care Team Providers Care Web Content Writer Name Role Phone Eleanor Andres MD Unavailable Reason for Visit * ReasonOnset DateCommentsError (VOID this visit)09/21/2025 Encounter Details DateTypeDepartmentCare Team (Latest Contact Info)Zdunncyynto55/30/2025Telephone NOMChiara [place] OBGYN [address] [facility] [place] [phone] Tari Nunez MA [address] [facility] [place] [address] Error (VOID this visit) Social History Tobacco UseTypesPacks/DayYears UsedDateSmoking Tobacco: Never AssessedPHQ-2 AnswerDate RecordedPatient Health Questionnaire-2 Payhm618 Estimated Date of TwhuamjfGuzisqzgKwi69/02/2025Based on UltrasoundSex and Gender InformationValueDate RecordedSex Assigned at BirthNot on fileLegal SexFemale 08/17/2024 11:40 AM EDTGender IdentityNot on fileSexual OrientationNot on file documented as of this encounter Miscellaneous Notes * Telephone Encounter - Tari Nunez MA - 09/21/2025 1:48 PM EDT void documented in this encounter Plan of Treatment DateTypeDepartmentCare Team (Latest Contact Info)Qfmbufmbbio61/04/2025 9:30 AM ESTRoutine [facility] Mahendra OBGYN [address] [facility] [place] [phone] Peter Tellez DO [address] [facility] [place] [address] documented as of this encounter Visit Diagnoses Not on filedocumented in this encounter Care Teams Team MemberRelationshipSpecialtyStart DateEnd Date Eleanor Andres MD [address] [facility] [address] [place] [address] PCP - [facility] Garett [facility]02/22/24documented as of this encounter
--- OUTSIDE RECORDS SUMMARY | 2025-09-26 04:28 | XMS_ITS | Clinical Summary ---
Author Organization [facility] Address [address] [place] [address] Care Team Providers Care Twister Tender Paper Name Role Phone None, Provided MD Primary Care Provider Unavaila ble Allergies Active AllergyReactionsCriticalityNoted DateCommentsAmoxicillinItchingMedium 08/25/2022 05/11/2024: tolerated ceftriaxone without allergic reaction Medications MedicationSigDispense QuantityRefillsLast FilledStart DateEnd DateStatus acetaminophen (Tylenol) 500 mg tablet Take 1,000 mg by mouth every 6 (six) hours if needed.Active DOCOSAHEXAENOIC ACID ORAL Take 1 capsule by mouth in the morning.11/18/2023ctive Active Problems ProblemNoted DateDiagnosed DateHydronephrosis of right vqlvon1105/09/2024Low platelet count05/09/2024Nausea & yugkxdkf69/17/2337Ohpgfm49/17/2024Normal labor 05/07/2024Late care12/24/2023 Overview (05/20/2024): 20 weeks at first visit Rubella non-immune status, /11/2024Susceptible to varicella (non- immune), currently oxrfnndw19/11/2024History of dfvuhbkvtna92/28/2023 Overview (05/20/2024): January 2023 Iron deficiency anemia due to chronic blood loss06/01/2023HSIL (high grade squamous intraepithelial lesion) on Pap smear of gitdxi3604/30/2022 Overview (05/20/2024): NEEDS COLPO 11/12/2021 date of PAP. Had appt. For colpo but no showed Severe eqekwi4804/29/2022 Immunizations ImmunizationAdministration DatesNext DueDTaP, Ecarukeixdc61/04/3961XTL9104/26/2002 MMR04/26/2002 Social History Tobacco UseTypesPacks/DayYears UsedDateSmoking Tobacco: Never AssessedUT Safety & EnvironmentAnswerDate RecordedFear of Current or Ex-PartnerNot on file 05/19/2024Emotionally AbusedNot on file05/19/2024hysically AbusedNot on file 05/19/2024Sexually AbusedNot on file05/19/2024hysically or Sexually AbusedNot on file05/19/2024CommentsUnknownSex and Gender InformationValueDate RecordedSex Assigned at BirthNot on fileLegal TzuGupvix55/29/2022 9:47 PM EDT Gender IdentityNot on fileSexual OrientationNot on file Plan of Treatment Health MaintenanceDue DateLast DoneCommentsIPV Vaccines (2 of 3 - 4-dose series) Depression Zwatoobeg82/30/2008Varicella Vaccines (1 of 2 - 13+ 2-dose series)2009Pap Smear2017Adult Ydmltpr8606/21/2018HPV Vaccines (1 - 3-dose SCDM series)2023Influenza Vaccine [...]
--- OUTSIDE RECORDS SUMMARY | 2025-09-26 04:28 | XMS_ITS | Encounter Summary ---
Author Organization [facility] Address [address] [place] [address] Care Team Providers Care Continuity Editor Name Role Phone Eleanor Andres MD Unavailable Encounter Details DateTypeDepartmentCare Team (Latest Contact Info)Rmcwzziwfkg33/23/2025Patient Outreach [facility] [address] [place] [address] Angela Harley LPN [address] [place] [address] Social History Tobacco UseTypesPacks/DayYears UsedDateSmoking Tobacco: Never AssessedPHQ-2 AnswerDate RecordedPatient Health Questionnaire-2 Dsoot501 Estimated Date of KmrmrvrvNlzxaokaNnu24/02/2025Based on UltrasoundSex and Gender InformationValueDate RecordedSex Assigned [...] 9:49 AM Angela Garcia LPNPatient Health Questionnaire-2 Wvwfr344 9:49 AM Angela Garcia LPN documented as [...] Plan of Treatment DateTypeDepartmentCare Team (Latest Contact Info)Klvpwhhaoax23/04/2025 9:30 AM ESTRoutine [facility] [address] [place] [address] Peter Tellez, [address] [place] [address] documented as of this encounter Visit Diagnoses Not on filedocumented in this encounter Care Teams Team MemberRelationshipSpecialtyStart DateEnd Date Eleanor Andres MD [address] [facility] [address] [place] [address] PCP - [facility]02/22/24documented as of this encounter
--- OUTSIDE RECORDS SUMMARY | 2025-09-26 04:28 | XMS_ITS | Encounter Summary ---
Author Organization [facility] Address [address] [place] [address] Care Team Providers Care Chef Instructor Name Role Phone Eleanor Andres MD Unavailable Encounter Details DateTypeDepartmentCare Team (Latest Contact Info)Cacusyhlfpk08/22/2025Travel Social History Tobacco UseTypesPacks/DayYears UsedDateSmoking Tobacco: Never AssessedPHQ-2 AnswerDate RecordedPatient Health Questionnaire-2 Seukf610 Estimated Date of XdjbjfvpBxcigfdlDqi73/02/2025Based on UltrasoundSex and Gender InformationValueDate RecordedSex Assigned at BirthNot on fileLegal SexFemale 08/17/2024 11:40 AM EDTGender IdentityNot on fileSexual OrientationNot on file documented as of this encounter Plan of Treatment DateTypeDepartmentCare Team (Latest Contact Info)Ysezzqgnrgq79/04/2025 9:30 AM ESTRoutine [facility] [address] [place] [address] Peter Tellez DO [address] [place] [address] documented as of this encounter Visit Diagnoses Not on filedocumented in this encounter Care Teams Team MemberRelationshipSpecialtyStart DateEnd Date Eleanor Andres MD [address] [facility] [address] [place] [address] PCP - [facility]02/22/24documented as of this encounter
--- OUTSIDE RECORDS SUMMARY | 2025-09-26 04:28 | XMS_ITS | Encounter Summary ---
Author Organization [facility] Address [address] [place] [address] Care Team Providers Care Cops Name Role Phone Eleanor Andres MD Unavailable Encounter Details DateTypeDepartmentCare Team (Latest Contact Info)Xeorrptkpyo46/23/2025External Result Encounter [facility] External Department Unsolicited Angela Horton, VINCENT [address] [place] [address] [place] [address] Social History Tobacco UseTypesPacks/DayYears UsedDateSmoking Tobacco: Never AssessedPHQ-2 AnswerDate RecordedPatient Health Questionnaire-2 Wiqqm707 Estimated Date of BarukpjcPfjwxcxeHug64/02/2025Based on UltrasoundSex and Gender InformationValueDate RecordedSex Assigned [...] 9:49 AM Angela Garcia LPNPatient Health Questionnaire-2 Smgdf505 9:49 AM Angela Garcia LPN documented as of this encounter Plan of Treatment DateTypeDepartmentCare Team (Latest Contact Info)Cbxcymiycwn40/04/2025 9:30 AM ESTRoutine [facility] [address] [place] [address] Peter Tellez, DO [address] [facility] [place] [address] documented as of this encounter Procedures Procedure NamePriorityDate/TimeAssociated DiagnosisCommentsURINARY TRACT INFECTION (HTRX)Rdhdrmb0509/14/2025 11:32 AM EDT documented in this encounter Results * (ABNORMAL) URINARY TRACT INFECTION (HTRX) (09/14/2025 11:32 AM EDT)Component ValueRef RangeTest MethodAnalysis TimePerformed AtPathologist Signature ACINETOBACTER YTZDSBKC739.961 - 24.689 ppm09/15/2025 7:31 AM EDTHealthTrackRx at LabPortACINETOBACTER BAUMANIINot Kcrsvuqi14.961 - 24.689 ppm09/15/2025 7:31 AM EDTHealthTrackRx at LabPortCITROBACTER RPVXAQSL351.000 - 32.015 ppm 09/15/2025 7:31 AM EDTHealthTrackRx at LabPortCITROBACTER FREUNDIINot Detected 23.000 - 32.015 ppm09/15/2025 7:31 AM EDTHealthTrackRx at LabPortENTEROBACTER AEROGENES, FADSIQD060.000 - 32.290 ppm09/15/2025 7:31 AM EDTHealthTrackRx at LabPortENTEROBACTER AEROGENES, CLOACAENot Ycsbstjd67.000 - 32.290 ppm 09/15/2025 7:31 AM EDTHealthTrackRx at LabPortENTEROCOCCUS FAECALIS, FAECIUM0 26.000 - 33.043 ppm09/15/2025 7:31 AM EDTHealthTrackRx at LabPortENTEROCOCCUS FAECALIS, FAECIUMNot Ibysnuxo69.000 - 33.043 ppm09/15/2025 7:31 AM EDT [facility] at LabPortESCHERICHIA COLI25.84(A)23.000 - 28.500 ppm09/15/2025 7:31 AM EDTHealthTrackRx at LabPortESCHERICHIA COLIDetected(A)23.000 - 28.500 ppm09/15/2025 7:31 AM EDTHealthTrackRx at LabPortKLEBSIELLA PNEUMONIAE, RYDSMGY806.000 - 31.865 ppm09/15/2025 7:31 AM EDTHealthTrackRx at LabPort KLEBSIELLA PNEUMONIAE, OXYTOCANot Ebixyuws79.000 - 31.865 ppm09/15/2025 7:31 AM EDTHealthTrackRx at LabPortMORGANELLA CICDRQNY509.961 - 24.689 ppm 09/15/2025 7:31 AM EDTHealthTrackRx at LabPortMORGANELLA MORGANIINot Detected 19.961 - 24.689 ppm09/15/2025 7:31 AM EDTHealthTrackRx at LabPortPROTEUS MIRABILIS, YOMTIQRE432.000 - 28.500 ppm09/15/2025 7:31 AM EDTHealthTrackRx at LabPortPROTEUS MIRABILIS, VULGARISNot Bbwcqhlv46.000 - 28.500 ppm09/15/2025 7:31 AM EDTHealthTrackRx at LabPortPSEUDOMONAS PBYSIQTUKY808.000 - 31.801 ppm 09/15/2025 7:31 AM EDTHealthTrackRx at LabPortPSEUDOMONAS AERUGINOSANot Dqlzugry90.000 - 31.801 ppm09/15/2025 7:31 AM EDTHealthTrackRx at LabPort STAPHYLOCOCCUS HXUSVL204.000 - 31.595 ppm09/15/2025 7:31 AM EDTHealthTrackRx at LabPortSTAPHYLOCOCCUS AUREUSNot Ymliupqb26.000 - 31.595 ppm09/15/2025 7:31 AM EDTHealthTrackRx at LabPortSTREPTOCOCCUS AGALACTIAE (GROUP B STREP)026.000 - 32.435 ppm09/15/2025 7:31 AM EDTHealthTrackRx at LabPortSTREPTOCOCCUS AGALACTIAE (GROUP B STREP)Not Gnsjcxfg16.000 - 32.435 ppm09/15/2025 7:31 AM EDTHealthTrackRx at LabPortCANDIDA ALBICANS, PARAPSILOSIS, QLILUKVHPU82.946(A) 23.000 - 30.347 ppm09/15/2025 7:31 AM EDTHealthTrackRx at LabPortCANDIDA ALBICANS, PARAPSILOSIS, TROPICALISDetected(A)23.000 - 30.347 ppm09/15/2025 7:31 AM EDTHealthTrackRx at LabPortCANDIDA LHVHUXBA911.000 - 31.618 ppm 09/15/2025 7:31 AM EDTHealthTrackRx at LabPortCANDIDA GLABRATANot Detected 23.000 - 31.618 ppm09/15/2025 7:31 AM EDTHealthTrackRx at LabPortCANDIDA VTZLGG083.000 - 30.873 ppm09/15/2025 7:31 AM EDTHealthTrackRx at LabPort VANESA KRUSEINot Fktelkvu30.000 - 30.873 ppm09/15/2025 7:31 AM EDT [facility] at LabPortSERRATIA UQFVZZCFHI193.000 - 31.581 ppm09/15/2025 7:31 AM EDTHealthTrackRx at LabPortSERRATIA MARCESCENSNot Pccutstb10.000 - 31.581 ppm09/15/2025 7:31 AM EDTHealthTrackRx at LabPortSTREPTOCOCCUS PYOGENES (GROUP A STREP)019.961 - 24.689 ppm09/15/2025 7:31 AM EDTHealthTrackRx at LabPort STREPTOCOCCUS PYOGENES (GROUP A STREP)Not Qhnalvzy03.961 - 24.689 ppm 09/15/2025 7:31 AM EDTHealthTrackRx at LabPortSTAPHYLOCOCCUS EPIDERMIDIS, HAEMOLYTICUS, LUGDUNENSIS, SAPROPHYTICUS (IUEIC429.961 - 24.689 ppm09/15/2025 7:31 AM EDTHealthTrackRx at LabPortSTAPHYLOCOCCUS EPIDERMIDIS, HAEMOLYTICUS, LUGDUNENSIS, SAPROPHYTICUS (URINANot Ukpmuzyq29.961 - 24.689 ppm09/15/2025 7:31 AM EDTHealthTrackRx at LabPortSTAPHYLOCOCCUS EPIDERMIDIS, HAEMOLYTICUS, LUGDUNENSIS, SAPROPHYTICUS (GCKWZ632.961 - 24.689 ppm09/15/2025 7:31 AM EDT [facility] EPIDERMIDIS, HAEMOLYTICUS, LUGDUNENSIS, SAPROPHYTICUS (URINANot Rtfukrdm37.961 - 24.689 ppm09/15/2025 7:31 AM EDT [facility] at LabFloyd [facility] And Health ServicesTET B, TET M27.09(A)23.000 - 27.500 ppm09/15/2025 7:31 AM EDTHealthTrackRx at [facility] HospitalTET B, TET MDetected(A)23.000 - 27.500 ppm 09/15/2025 7:31 AM EDTHealthTrackRx at [facility] HospitalSpecimen (Source)Anatomical Location / LateralityCollection Method / VolumeCollection TimeReceived Time Urine09/14/2025 11:32 AM EDT1 1:45 AM EDT Narrative Authorizing ProviderResult TypeResult StatusAmy [facility] BLOOD ORDERABLES Final ResultPerforming OrganizationAddressCity/State/ZIP CodePhone Number [facility]Fl[facility] [address] [phone] documented in this encounter Visit Diagnoses Not on filedocumented in this encounter Care Teams Team MemberRelationshipSpecialtyStart DateEnd Date Eleanor Andres MD [address] [facility] [address] [place] [address] PCP - [facility]02/22/24documented as of this encounter
--- OUTSIDE RECORDS SUMMARY | 2025-09-26 04:28 | XMS_ITS | Clinical Summary ---
Author Organization [facility] Address [address] [facility] [place] [address] Care Team Providers Care Sweater Operator Name Role Phone Unavailable Primary Care Provider Unavailabl e Source Comments The following information is NOT included in Care Everywhere downloads:Psychiatric notes, ECG results, Cardiac Rehab notes, Pulmonary Function notes, data from SmartForms (includes but not limited toPregnancy data,audiograms, eye exams, pre-surgical evaluation notes, well-child exam data).[facility] Social History Tobacco UseTypesPacks/DayYears UsedDateSmoking Tobacco: Never Assessed CommentsUnknownSex and Gender InformationValueDate RecordedSex Assigned at Not on fileLegal FnjItytqc14/16/2023 2:42 PM EDTGender IdentityNot on fileSexual OrientationNot on file Plan of Treatment Health MaintenanceDue DateLast DoneCommentsHepatitis C Bwsdhnyz46/30/2014Tdap Eozjlan8506/21/2014Hepatitis A (HAV) Vaccine (optional start 19+ years)2015 Hepatitis B (HBV) Vaccine (1 of 3 - 19+ 3-dose series)2015Tetanus (Td or Tdap) Zuxdyru8906/21/2015Pap Smear2017HPV Vaccine (optional start 27-45 years)3COVID-19 Vaccine ( - 2024- season)2025Influenza Vaccine (#1)2025Shingles (RZV) Vaccine (1 of 2)2046HIV TestCompleted 12/02/2023MammographyDiscontinuedPneumococcal Vaccine(s)Aged OutNo longer eligible based on patient's age to complete this topic Insurance * Guarantor: Marisa Valentin TypeRelation to PatientDate of BirthPhone Billing AddressPromedica Life EexwkoZyiz1995 [address] [facility] [address]
--- OUTSIDE RECORDS SUMMARY | 2025-09-26 04:28 | XMS_ITS | Encounter Summary ---
Author Organization [facility] Address [address] [place] [address] Care Team Providers Care Major General Name Role Phone Eleanor Andres MD Unavailable Encounter Details DateTypeDepartmentCare Team (Latest Contact Info)Cpfiqdrpepx51/24/2025bstract [facility] [address] [place] [address] Angela Harley, PARADICHLOROBENZENE MACHINE OPERATOR [address] [place] [address] Social History Tobacco UseTypesPacks/DayYears UsedDateSmoking Tobacco: Never AssessedPHQ-2 AnswerDate RecordedPatient Health Questionnaire-2 Xbblv694 Estimated Date of LgpfetrfTwvyetqfIvg01/02/2025Based on UltrasoundSex and Gender InformationValueDate RecordedSex Assigned at BirthNot on fileLegal SexFemale 08/17/2024 11:40 AM EDTGender IdentityNot on fileSexual OrientationNot on file documented as of this encounter Plan of Treatment DateTypeDepartmentCare Team (Latest Contact Info)Qzeyzzkiynr16/04/2025 9:30 AM ESTRoutine [facility] [address] [place] [address] Peter Tellez DO [address] [facility] [place] [address] documented as of this encounter Visit Diagnoses Not on filedocumented in this encounter Care Teams Team MemberRelationshipSpecialtyStart DateEnd Date Eleanor Andres MD [address] [facility] 110 [place] [address] PCP - [facility] G[facility]02/22/24documented as of this encounter
--- OUTSIDE RECORDS SUMMARY | 2025-09-26 04:28 | XMS_ITS | Encounter Summary ---
Author Organization [facility] Address [address] [place] [address] Care Team Providers Care Lifestyle Consultant Name Role Phone Eleanor Andres MD Unavailable Encounter Details DateTypeDepartmentCare Team (Latest Contact Info)Jbeuxfkxqle83/30/2025Bamboo flowsheet ESTHER LUCIANO [address] [place] [address] [place] [address] Angela Horton PA [address] [facility] [address] [place], [facility] Social History Tobacco UseTypesPacks/DayYears UsedDateSmoking Tobacco: Never AssessedPHQ-2 AnswerDate RecordedPatient Health Questionnaire-2 Zcbgv181 Estimated Date of EymfvdtdVdjjvtquNfg56/02/2025Based on UltrasoundSex and Gender InformationValueDate RecordedSex Assigned at BirthNot on fileLegal SexFemale 08/17/2024 11:40 AM EDTGender IdentityNot on fileSexual OrientationNot on file documented as of this encounter Plan of Treatment DateTypeDepartmentCare Team (Latest Contact Info)Rodvdpngxge13/04/2025 9:30 AM ESTRoutine NOMChiara LUCIANO [address] [place] [address] Peter Tellez DO [address] [facility] [address] [place], [facility] documented as of this encounter Visit Diagnoses Not on filedocumented in this encounter Care Teams Team MemberRelationshipSpecialtyStart DateEnd Date Eleanor Andres MD [address] [facility] 110 [place] [address] PCP - [facility]02/22/24documented as of this encounter
--- OUTSIDE RECORDS SUMMARY | 2025-09-26 04:28 | XMS_ITS | Patient Health Record ---
Author Organization [facility] [place] Address [address] [place] [address] Care Team Providers Care Physical Medicine Teacher Name Role Phone MARAL SOTO Unavailable [phone] Results Component Value Reference Range Notes FERRITIN (Not yet reviewed b y provider) Interpretation: Performing Lab: Notes/Report: [facility] , Ferritin 13.0 8.0-252.0 ng/mL Performing Lab:see noteML - [facility] LBCBC AUTO DIFF (Not yet reviewed by provider) Interpretation: Performing Lab: Notes/Report: Peripheral Smear not indicated. [facility] ,White Blood Count5.84.0-11.0 10 3/uLRed Blood Count4.294.20-5.40 10 6/uL Zigdtegswq72.312.0-16.0 g/uGQqvssmuhox32.436.0-48.0 %Mean Corpuscular Hypkxe88.8 81.0-99.0 fLMean Corpuscular Wpcbqkqcgj86.726.7-34.0 pgMean Corpuscular HGB Conc 33.829.9-35.2 g/dLRed Cell Distribution Width13.211.0-15.0 %Platelet Pyzmn484 150-450 10 3/uLMean Platelet Bntbqo35.79.5-13.5 fLNeutrophils Percent Auto71.8 43.0-75.0 %Lymphocytes Percent Auto21.620.5-60.0 %Monocytes Percent Auto5.31.7- 12.0 %Eosinophils Percent Auto0.30.9-7.0 %Basophils Percent Auto0.30.2-2.0 % Immature Granulocytes Pct Auto0.70.0-0.5 %Neutrophils Absolute Auto4.21.4-6.5 10 3/uLLymphocytes Absolute Auto1.31.2-3.8 10 3/uLMonocytes Absolute Auto0.30.3-0.8 10 3/uLEosinophils Absolute Auto0.00.0-0.7 10 3/uLBasophils Absolute Auto0.00.0- 0.1 10 3/uLImmature Granulocytes Abs Auto0.040.00-0.03 10 3/uLPerforming Lab:see noteML - [facility] LBLDH (Not yet reviewed by provider) Interpretation: Performing Lab: Notes/Report: [facility] ,Lactate Pcnwbfunltmhy43631-066 U/LPerforming Lab:see note - [facility] LBIRON AND TIBC (Not yet reviewed by provider) Interpretation: Performing Lab: Notes/Report: [facility] ,Iron67.050.0-170.0 ug/dLTotal Iron Binding Kseodtgn115.0250.0-450.0 ug/dL Percent Iron Xvajfqfouv83.7Performing Lab:see noteML - [facility] LB Reason For Referral No Information Encounters Encounter Location Date Provider Diagnosis [facility] [address] [place] [address] [facility] [address] [place] [address]/ MARAL [facility] [address] [place] [address]/POJERMAINEVT BRITTANY Plan Of Treatment Pending Test Test Name Order Date CBC AUTO DIFF 08/29/2025 FERRITIN 08/29/2025 IRON AND TIBC 08/29/2025 LDH 08/29/2025 Insurance Providers Payer Name Payer Address Payer Phone Subscriber Number Group Number Insured Name Patient Relationship to Insured Coverage Start Date Coverage End Date [employer] [place] [employer] [address] [address] [place] [address] [id number] Arsalan Valentin - patient is the insured
--- OUTSIDE RECORDS SUMMARY | 2025-09-26 04:28 | XMS_ITS | Clinical Summary ---
Author Organization [facility] tem Address [id number] [address] [place] [address] Care Team Providers Care Thermoplastic Technician Name Role Phone No Pcp, No Pcp [...] as needed for nausea or vomiting.Active PNV 534-ijdjo-skiqy-3-fish oil 400-32.5 mcg-mg tablet,chewable Chew and swallow.Active Active Problems ProblemNoted DateDiagnosed DatePeritonsillar rxzcuhj4807/11/2024Nausea & vomiting 05/09/2024Sepsis associated potauxiefne18/17/2024Low platelet count05/09/2024 Hydronephrosis of right iohokk0805/09/20243097Lvyjnf93/17/2024Normal labor05/07/2024 Late care12/24/2023 Overview (12/24/2023): 20 weeks at first visit Rubella non-immune status, rsvdcimjon73/11/2024Susceptible to varicella (non- immune), currently czvyktmq56/11/2024History of xqhvbipsosg75/28/2023 Overview (11/19/2023): January 2023 Iron deficiency anemia due to chronic blood loss06/01/2023HSIL (high grade squamous intraepithelial lesion) on Pap smear of sswgtv0904/30/2022 Overview (04/30/2022): NEEDS COLPO 11/12/2021 date of PAP. Had appt. For colpo but no showed Severe wpoevs9804/29/2022Estimated Date of OwwcefrxKrqjuthbKol80/02/2025 Based on Ultrasound Resolved Problems ProblemNoted DateDiagnosed DateResolved DateIron deficiency anemia due to chronic blood loss Encounters DateTypeDepartmentCare UhxdMluggnkabpi69/20/2025Telephone Maternal- Medicine at [facility] [address] [place] [address] Angela Stanley LPN 08/30/2025Telephone Maria Fernanda Cheng [facility] - Medical Oncology [address] [place] [address] Mitul Vila MD end therapy (Ending all infusions regarding Injectafer )07/27/2025Travel 07/19/2025Documentation Maria Fernanda Gomez [facility] - Medical Oncology [address] [place] [phone] Faith Bowman RN 07/12/2025Orders Only [facility], A Department of [address] [place] [address] Mitul Vila MD Iron deficiency anemia due to chronic blood loss (Primary Dx); Severe miixzd2007/12/2025Results Follow-Up Maria Fernanda Gomez [facility] - Medical Oncology [address] [place] [address] Mitul Vila MD CBC with auto diff, Iron and TIBC, Cyocbbpe03/20/2025Travelfrom Last 3 Months Immunizations ImmunizationAdministration DatesNext RucBYC6512/13/2021(),08/16/2018()Tdap 10/13/2022(),08/16/2018()Biojzxlbo33/24/2018() Family History Medical HistoryRelationNameCommentsDiabetesFatherDiabetesPaternal Grandmother Ovarian cancerPaternal GrandmotherRelationNameStatusCommentsFatherPaternal Grandmother Social History Tobacco UseTypesPacks/DayYears UsedDateSmoking Tobacco: NeverSmokeless Tobacco: Never Tobacco Cessation:Counseling Given: Not Answered Alcohol UseStandard Drinks/WeekCommentsNo0 (1 standard drink = 0.6 oz pure alcohol)[facility] UtilitiesAnswerDate RecordedIn the past 12 months has the AVOB, [employer], oil, or water [employer] threatened to shut off services in your home?No 07/11/2024Overall Financial Resource Strain (CARDIA)AnswerDate RecordedHow hard is it for you to pay for the very basics like food, housing, medical care, and heating?Not hard at all05/09/2024HQ-2AnswerDate RecordedTotal [id number] PRAPARE - TransportationAnswerDate RecordedIn the past 12 months, has lack of transportation kept you from medical appointments or from getting medications?No 07/11/2024In the past 12 months, has lack of transportation kept you from meetings, work, or from getting things needed for daily living?No07/11/2024 [place] Depression ScaleAnswerDate RecordedEdinburgh Depression Scale Zmsvx51112/31/2021The thought of harming myself has occurred to me.Never10/30/2022Housing InstabilityAnswerDate RecordedAre you worried or concerned that in the next two months you may not have stable housing that you own, rent or stay in as a part of a household?No07/11/2024hildcareAnswerDate RecordedDo problems getting child advocate make it difficult for you to work or study?No04/30/2022EmploymentAnswerDate KmqxezqwPvvxmctpatIvnjfcb98/31/2019Hunger ScreeningAnswerDate RecordedWithin the past 12 months we worried whether our food would run out before we got money to buy more.Never True2025Within the past 12 months the food we bought just didn't last and we didn't have money to get more.Never True2025Purpose - LifeAnswerDate RecordedPurpose and direction in volmUzrhnoj61/04/2021Estimated Date of DeliveryCommentsYes 5Based on UltrasoundSex and Gender InformationValueDate RecordedSex Assigned at OvlqpIzrrwi73/18/2022 10:30 AM ESTLegal GttGkcckp90/06/2015 11:51 AM EDTGender YmwdsvstVgzhro68/18/2022 10:30 AM ESTSexual OrientationStraight 10/10/2022 10:30 AM EST Last Filed Vital Signs Vital SignReadingTime TakenCommentsBlood Aognvkbq413/7007 1:17 PM EDT Puyyt974406/21/2025 1:17 PM SNPQxofilwilic95.7 ??C (98 ??F)05/29/2025 2:30 PM EDT Respiratory Rhpf272905/29/2025 2:30 PM EDTOxygen Bgzhnivsld705%05/29/2025 2:30 PM EDTInhaled Oxygen Concentration--Krgnbv41.9 kg (127 lb 9.6 oz)2025 1:17 PM IHKJybsrv358.8 cm (5' 10 )2025 1:17 PM EDTBody Mass Index18.31006/21/2025 1:17 PM EDT Plan of Treatment Health MaintenanceDue DateLast DoneCommentsAdult BMI Follow Up Plan2014 DTaP,Tdap and Td Vaccines (2 - Tdap)Depression Screening , 10/30/2022Influenza Mmnlfyq7107/24/2025dult BMI Screening Tobacco Oojnnhfuy50Pap Smear04/11/2028 04/11/2025, 12/24/2023, 11/08/2021, Additional history existsRSV ( or age 60+ yrs) (No Doses Required)Completed Medical Devices Not on file Procedures Procedure NamePriorityDate/TimeAssociated DiagnosisCommentsUS MFM OB FOLLOW-UP, 1 PSTATQuiivox03/04/2025 3:15 PM EDT Abnormal ultrasound GLU 1H POST 50G WPSETgkybhq24/21/2025 2:30 PM EDT Encounter for screening for diabetes mellitus GLUCOSE TOLERANCE, 1 HR 50GM LOAD ( PATIENTS ONLY)Begwzgv6407/13/2025 2:30 PM EDT Encounter for screening for diabetes mellitus SETGYJNDKfwubgs34/20/2025 11:58 AM EDT Iron deficiency anemia due to chronic blood loss Anemia during Fatigue, unspecified type IRON AND SRLHXfqnrpp23/20/2025 11:58 AM EDT Iron deficiency anemia due to chronic blood loss Anemia during Fatigue, unspecified type CBC WITH AUTO PZKVWFHTMCSJTwzobdp49/20/2025 11:58 AM EDT Iron deficiency anemia due to chronic blood loss Anemia during Fatigue, unspecified type PAP XDOIGPayramm48/01/2024 6:22 AM EST Cervical smear, as part of routine gynecological examination Second trimester from Last 3 Months or Most Recently Relevant to Health Maintenance Results * US MFM OB FOLLOW-UP, 1 FETUS (07/27/2025 3:15 PM EDT)Anatomical Region LateralityModalityOB-GYNUltrasoundSpecimen (Source)Anatomical Location / LateralityCollection Method / VolumeCollection TimeReceived Time07/27/2025 2:35 PM EDT Narrative 07/27/2025 4:36 PM EDT NAME: ??VERO PIERCE : 1995 SEX: F Accession Number: [id number] ORDERING PHYSICIAN: CHERELLE REYNOLDS REFERRING PHYSICIAN: PRANAY JO Coding Procedures ? 09275: Follow-up Ultrasound, per fetus Indication Screening for follow-up survey, Supervision of high risk -(short interval between pregnancies), Insufficient care, Grand multiparity. History OB History ? 7. Para 5 ? [id number] Maternal Assessment Physical Exam ??Height 178 cm, [...] (oz) ? 12 oz EFW by: ?Hadlock (ZHZ-TO-SI-FL) Extended Tibia ??50.3 mm 30w 0d 17% Narayan Security Flex Officer ? 5.2 mm CM ? 8.6 mm [...] Heart / Thorax RVOT view. 3-vessel view. 7-pcvpbn-oazbjsh view. Aortic arch view. Bicaval view. Ductal [...] any gross structural abnormalities. Recommendations Please see [facility] recommendations from prior clinical and/or ultrasound report documentation. Subsequent follow up or other follow up as clinically determined by primary OB provider unless otherwise specified by [facility]. Results forwarded to ordering provider so they can follow up with the patient as necessary. Procedure Note Edd Frias MD - 07/27/2025 NAME: VERO PIERCE : 1995 SEX: F Accession Number: [id number] ORDERING PHYSICIAN: CHERELLE REYNOLDS REFERRING PHYSICIAN: PRANAY JO Coding Procedures 81061: Follow-up Ultrasound, per fetus Indication Screening for follow-up survey, Supervision of high risk -(short interval between pregnancies), Insufficient care, Grand multiparity. History OB History 7. Para 5 [id number] Maternal Assessment Physical Exam Height 178 cm, [...] EFW (oz) 12 oz EFW by: Hadlock (ARJ-DQ-UI-FL) Extended Tibia 50.3 mm 30w 0d 17% Narayan Security Flex Officer 5.2 mm CM 8.6 mm 84% Nicolaides [...] Heart / Thorax RVOT view. 3-vessel view. 8-icoijm-wugxwra view. Aorticarch view. Bicaval view. Ductal arch [...] of any grossstructural abnormalities. Recommendations Please see MFM recommendations from prior clinical and/or ultrasoundreport documentation. Subsequent follow up or other follow up as clinically determined byprimary OB provider unless otherwise specified by MFM. Results forwarded to ordering provider so they can follow up with thepatient as necessary. Authorizing ProviderResult TypeResult Omari GRIFFIN US ORDERABLES Final Result * Glucose 1h post 50g load (07/13/2025 2:30 PM EDT)ComponentValueRef RangeTest MethodAnalysis TimePerformed AtPathologist SignatureGLUCOSE, 1HR POST 50GM IOXV58575 - 139 mg/dL07/13/2025 5:58 PM [facility] Specimen (Source)Anatomical Location / LateralityCollection Method / Volume Collection TimeReceived TimeBloodVenous blood / UnknownVenipuncture / Unknown 07/13/2025 2:30 PM EDT07/13/2025 2:30 PM EDT Narrative Authorizing ProviderResult TypeResult Sana Horton PAL BLOOD ORDERABLES Final ResultPerforming OrganizationAddressCity/State/ZIP CodePhone Number [facility] [address] [place] [address], [place] [phone] * (ABNORMAL) CBC with auto diff (07/12/2025 11:58 AM EDT)ComponentValueRef Range Test MethodAnalysis TimePerformed AtPathologist SignatureWBC4.74 - 11 x10E9/L 07/12/2025 8:27 PM [facility] LABORATORYRBC Count4.183.8 - 5.2 X10E12/L07/12/2025 8:27 PM [facility] Zvjpzbvild17.011.7 - 15.5 g/dL07/12/2025 8:27 PM [facility] DOWBMYFJRGDlmkjzyqla40.635 - 47 %07/12/2025 8:27 PM [facility] VCTEJIBIONCEI1945 - 100 fL07/12/2025 8:27 PM [facility] CZLIRWDASWQRV97.727 - 34 pg07/12/2025 8:27 PM [facility] CEBNNLTQFPROPV32.732 - 36 g/dL07/12/2025 8:27 PM [facility] DLXMPJMRSFLTZ23.211.5 - 15 %07/12/2025 8:27 PM [facility] LABORATORYPlatelet Trzcp569(L)150 - 450 X10E9/L07/12/2025 8:27 PM [facility] LABORATORYMPV9.97 - 12 fL07/12/2025 8:27 PM [facility] LABORATORYNeutrophils %58.6%07/12/2025 8:27 PM [facility] LABORATORYLymphocytes %31.5%07/12/2025 8:27 PM [facility]OR[facility]ORYMonocytes %8.7%07/12/2025 8:27 PM [facility]ORATORYEosinophils %0.7%07/12/2025 8:27 PM [facility]ORATORYBasophils %0.5%07/12/2025 8:27 PM [facility] LABORATORYNeutrophils Absolute (A)2.81.5 - 6.6 10*3/uL 07/12/2025 8:27 PM [facility] LABORATORYLymphocytes Absolute 1.51.0 - 3.5 10*3/uL07/12/2025 8:27 PM [facility] Monocytes Absolute0.40.0 - 0.9 10*3/uL07/12/2025 8:27 PM [facility]ORATORYEosinophils Absolute0.00.0 - 0.4 10*3/uL07/12/2025 8:27 PM [facility] LABORATORYBasophils Absolute0.00.0 - 0.2 10*3/uL 07/12/2025 8:27 PM [facility] LABORATORYDifferential Type AUTOMATED EKUMWCRYAGLI76/20/2025 8:27 PM [facility] LABORATORYSpecimen (Source)Anatomical Location / LateralityCollection Method / VolumeCollection TimeReceived TimeBloodVenous blood / UnknownVenipuncture / Mxlqhxj51/ 11:58 AM EDT07/12/2025 11:58 AM EDT Narrative Authorizing ProviderResult TypeResult StatusChasantos FRY BLOOD ORDERABLES Final ResultPerforming OrganizationAddressCity/State/ZIP CodePhone Number [facility] [address] [place] [address], * (ABNORMAL) Iron and TIBC (07/12/2025 11:58 AM EDT)ComponentValueRef RangeTest MethodAnalysis TimePerformed AtPathologist LozxfgznuRCRL12(L)50 - 170 ug/dL 07/12/2025 6:10 PM [facility] GEJOKLGEBRAUQFMCYEUVB541(H)168 - 336 mg/dL07/12/2025 6:10 PM [facility] LABORATORYIRON ZPXDAYE960(H)250 - 425 ug/dL07/12/2025 6:10 PM [facility] LABORATORYIRON SATURATION8(L)15 - 50 % WDWAGRMHGZ47/20/2025 6:10 PM [facility] LABORATORYSpecimen (Source)Anatomical Location / Laterality Collection Method / VolumeCollection TimeReceived TimeBloodVenous blood / UnknownVenipuncture / Odseqqe7807/12/2025 11:58 AM EDT07/12/2025 11:58 AM EDT Narrative Authorizing ProviderResult TypeResult StatusChasantos FRY BLOOD ORDERABLES Final ResultPerforming OrganizationAddressCity/State/ZIP CodePhone Number [facility] [address] [place] [address], * (ABNORMAL) Ferritin (07/12/2025 11:58 AM EDT)ComponentValueRef RangeTest MethodAnalysis TimePerformed AtPathologist SignatureFERRITIN7(L)11 - 307 ng/mL 07/12/2025 6:20 PM [facility] LABORATORYSpecimen (Source) Anatomical Location / LateralityCollection Method / VolumeCollection Time Received TimeBloodVenous blood / UnknownVenipuncture / Xappula1007/12/2025 11:58 AM EDT07/12/2025 11:58 AM EDT Narrative Authorizing ProviderResult TypeResult StatusChang Rosa Vila MDLAB BLOOD ORDERABLES Final ResultPerforming OrganizationAddressCity/State/ZIP CodePhone Number [facility] [address] [place] [address], * (ABNORMAL) Pap Smear (12/24/2023 6:22 AM EST)Specimen (Source)Anatomical Location / LateralityCollection Method / VolumeCollection TimeReceived Time 12/24/2023 6:22 AM EST12/24/2023 6:58 AM EST Narrative COPATH - 01/04/2024 5:52 PM EST ? [facility] ? [address] ? [place], [place] [address] ? Gynecologic Cytology Consultation ? Patient Name:KATHIE PHAM:1995 (Age: 28)Gender:FTaken:4Reported:4Physician(s):AGUSTINA Licona ([phone])Copy To: Rec. #:[id number]: #[id number] Final Cytologic Interpretation ThinPrep Pap Test (Cervical): Satisfactory for evaluation. A transformation zone component is present. SQUAMOUS EPITHELIAL CELL ABNORMALITY A high-grade squamous intraepithelial lesion (HSIL) is present. cjb/01/04/2024 Interpretation performed at [facility], [address] [place] [id number], License number: [id number]. Electronically Signed Out By ?Amalia Castorena MD Date of Last Menstrual Period: ? 08/01/23 Other Clinical Conditions: Z01.419 Judicial Clerk exam wo/abn findings Z34.92 Previous abnormal pap Source of Specimen ??ThinPrep Pap Test (Cervical) ? Thin Prep Pap (DEICER TESTER) Fee Code(s): ?? G0145, 17148 Authorizing ProviderResult TypeResult StatusCherelle Peña PICKLE MAKER-DATE PULLER PATHOLOGY/CYTOLOGY ORDERABLESFinal ResultPerforming OrganizationAddress City/State/ZIP CodePhone Number [facility] from Last 3 Months or Most Recently Relevant to Health Maintenance Insurance Advance Directives * Full Code (Latest Code Status on File) Date ActivatedDate InactivatedComments07/11/2024 8:23 PM07/12/2024 6:22 PM * Full Code Date ActivatedDate InactivatedComments07/11/2024 2:09 PM07/11/2024 7:41 PM * Full Code Date ActivatedDate InactivatedComments05/09/2024 5:43 PM05/12/2024 7:50 PM * Full Code Date ActivatedDate InactivatedComments05/07/2024 10:11 AM05/09/2024 5:36 PM * Full Code Date ActivatedDate ObzmorvtzllCowinbfk44/19/2022 2:50 AM10/13/2022 5:11 PM Care Teams Team MemberRelationshipSpecialtyStart DateEnd Date No [place], [place] [address] [facility] - [facility]
[2025-09-26 04:34] VITALS: BP 107/66; PULSE 117
[2025-09-26 06:50] LABS: Glucose Urine UA NEGATIVE (NEGATIVE)
[2025-09-26 07:03] LABS: Cast Seen? NONE SEEN #/LPF (NONE SEEN); Crystals Seen? None Seen #/HPF (None Seen); Urine Culture Indicated YES-LC
== END 2025-09-26 08:45 | disposition home or self-care (01) ==
PROVIDERS: Admitting Provider Obstetrics & Gynecology; Visit Provider Obstetrics & Gynecology
DX: O47.1 False labor at or after 37 completed weeks of gestation (principal); Z3A.40 40 weeks gestation of pregnancy
CPT/HCPCS: 59025; 81001; 87086; G0378; G0379